=== PATIENT | male | born 1955 | race Hispanic/Latino ===

== ENCOUNTER 2016-07-04 16:00 | Inpatient (IN) | payer MEDICARE, OTHER ==
--- NOTE | 2016-07-04 17:05 | C.PDOC ---
History Of Present Illness 60M sent by pmd for progressive gen weakness, weight loss, poor appetite, sob and jeffries for 6 months, worse recently. low grade temp at home for last 10 days "99." Time Seen by Provider: 07/04/16 16:44 Chief Complaint (Nursing): Shortness Of Breath Past Medical History Vital Signs: Last Vital Signs Temp 98 F 07/06/16 16:00 Pulse 86 07/06/16 16:00 Resp 20 07/06/16 16:00 BP 156/85 H 07/06/16 16:00 Pulse Ox 99 07/06/16 16:00 - Medical History PMH: Anxiety, Bipolar Disorder, Bronchitis, Depression, HTN, Pulmonary Embolism , Schizophrenia (paranoid type) Denies: Diabetes, Hepatitis, HIV, Chronic Kidney Disease, Seizures, Sexually Transmitted Disease Surgical History: Tonsillectomy - [facility] GROUP PSYCHOTHERAPY (12/09/15) INDIVIDUAL PSYCHOTHERAPY, COGNITIVE-BEHAVIORAL (12/09/15) INSERTION OF ENDOTRACHEAL AIRWAY INTO TRACHEA, VIA OPENING (11/29/15) PSYCHIAT DRUG THERAP NEC (03/21/06) RESPIRATORY VENTILATION, 24-96 CONSECUTIVE HOURS (11/29/15) Family History: States: Other (nc) - Social History Hx Tobacco Use: No Hx Alcohol Use: No Hx Substance Use: No - Immunization History Hx Tetanus Toxoid Vaccination: No Hx Influenza Vaccination: Yes (2014) Hx Pneumococcal Vaccination: Yes Review Of Systems Except As Marked, All Systems Reviewed And Found Negative. Constitutional: Positive for: Fever, Weakness Eyes: Negative for: Vision Change Cardiovascular: Negative for: Chest Pain Respiratory: Positive for: Shortness of Breath, SOB with Excertion. Negative for: Cough, Wheezing Gastrointestinal: Negative for: Nausea, Vomiting, Abdominal Pain, Diarrhea Genitourinary: Negative for: Dysuria Neurological: Positive for: Seizures. Negative for: Weakness, Numbness, Altered Mental Status, Headache Physical Exam - Physical Exam Appears: No Acute Distress Skin: Warm, Dry Head: Atraumatic Eye(s): bilateral: PERRL, EOMI Oral Mucosa: Moist Tongue: No Swelling Lips: No Swelling Neck: Normal ROM Cardiovascular: Rhythm Regular Respiratory: No Decreased Breath Sounds, No Accessory Muscle Use, No Rales, No Rhonchi, No Wheezing Gastrointestinal/Abdominal: Soft, No Tenderness Extremity: No Swelling Pulses: Left Radial: Normal, Right Radial: Normal Neurological/Psych: Oriented x3, Normal Cranial Nerves, No Cerebellar Signs, Normal Motor, Normal Sensation, Other (no focal deficits) ED Course And Treatment - Laboratory Results Result Diagrams: 07/04/16 17:27 07/04/16 17:27 O2 Sat by Pulse Oximetry: 95 - CT Scan/US CTA chest Other Rad Studies (CT/US): Read By Radiologist, Radiology Report Reviewed CT/US Interpretation: EXAM: CT Angiography Chest With Intravenous Contrast. CLINICAL HISTORY: 60 years old, male; Signs and symptoms; Shortness of breath; Additional info: HX of dvt/pe,. worsening SOB. TECHNIQUE: Axial computed tomographic angiography images of the chest with intravenous contrast using. pulmonary embolism protocol. This CT exam was performed using one or more of the following dose. reduction techniques: automated exposure control, adjustment of the mA and/or kV according to. patient size, and/or use of iterative reconstruction technique. Coronal and sagittal reformatted images were created and reviewed. CONTRAST: 100 mL of VISIPAQUE 320 administered intravenously. EXAM DATE/TIME: 07/04/2016 5:07 PM. COMPARISON: NM - LUNG SCAN (VQ SCAN) 12/04/2015 1:54:50 PM. FINDINGS: Artifacts: Motion artifact degrades image quality. Heart, aorta and Pulmonary arteries: Heart size is normal. There is no pericardial effusion.There is. no aneurysm or dissection.There are vascular calcifications. Bolus timing limits evaluation of. pulmonary arteries. No filling defects in the main pulmonary arteries. Allowing for motion and bolus. timing, no large peripheral pulmonary emboli are identified. Lungs and Pleural space: Trachea and main bronchi are patent. The there is minimal scarring at. the lung apices. There is minimal scarring at the lung bases. There are no focal consolidations. There no pleural effusions. Mediastinum: Esophagus is unremarkable. There are no pathologically enlarged mediastinal or. hilar nodes. Thyroid: Thyroid is unremarkable. Bones /joints: There degenerative changes in the bony structures. There are bridging osteophytes. and syndesmophytes. Soft tissues: unremarkable. Upper abdomen: Gallbladder is distended. There are multiple small layering stones. IMPRESSION : Limited by bolus timing and patient motion, no central or large peripheral pulmonary. emboli, no aneurysm or dissection; no focal pneumonia or. Thank you for allowing us to participate in the care of your patient. Dictated and Authenticated by: Stacie Sam MD. 07/04/2016 8:04 PM Eastern Time ( [place] & [place]) Disposition - Disposition Disposition: HOSPITALIZED Disposition Time: 20:50 Condition: STABLE - Clinical Impression Clinical Impression: Dehydration, Weight loss
[2016-07-04] MEDS ORDERED: Sodium Chloride 0.9% 1,000 ML IV ONE (17:06)
[2016-07-04 17:43] LABS: AST/SGOT 15 U/L (17-59); BILIRUBIN,TOTAL 0.7 mg/dL (0.2-1.3); CARBON DIOXIDE 25 mmol/L (22-30); GFR AFRICAN-AMERICAN > 60
[2016-07-04 17:44] LABS: ALB/GLOB RATIO 1.6 (1.0-2.1); ALKALINE PHOSPHATASE 44 U/L (38-126); ALT/SGPT 23 U/L (21-72); BLOOD UREA NITROGEN 18 mg/dL (9-20); CALCIUM 9.4 mg/dl (8.6-10.4); GLUCOSE,RANDOM 123 mg/dL (75-110); TOTAL PROTEIN 6.9 g/dL (6.3-8.3)
[2016-07-04] MEDS ORDERED: Sodium Chloride 0.9% 1,000 ML ONE ×2 (17:45→22:25)
[2016-07-04 17:47] LABS: BASO % 0.6 % (0.0-2.0); EOS # 0.1 K/uL (0.0-0.7); EOS % 0.9 % (0.0-4.0); HEMATOCRIT 40.5 % (35.0-51.0); INR 2.1; LYMPH # 1.3 K/uL (1.0-4.3); LYMPH % 15.7 % (20.0-40.0); MEAN CELL VOLUME 87.5 fL (80.0-94.0); MEAN CORPUSCULAR HEMOGLOBIN 29.5 pg (27.0-31.0); MEAN CORPUSCULAR HGB CONC 33.7 g/dL (33.0-37.0); MEAN PLATELET VOLUME 8.2 fL (7.2-11.7); MONO # 0.6 K/uL (0.0-0.8); MONO % 7.7 % (0.0-10.0); RED CELL DISTRIBUTION WIDTH 15.1 % (11.5-14.5); WHITE BLOOD COUNT 8.3 K/uL (4.8-10.8)
[2016-07-04 18:04] LABS: CHLORIDE 96 mmol/L (98-107); POTASSIUM 3.9 mmol/L (3.6-5.2); SODIUM 137 mmol/L (132-148)
[2016-07-04 18:07] LABS: RBC URINE 1 /hpf (0-3); URINE BACTERIA RARE (<OCC); URINE BILIRUBIN NEGATIVE (NEGATIVE); URINE BLOOD NEGATIVE (NEGATIVE); URINE COLOR Yellow (YELLOW); URINE GLUCOSE (UA) NORMAL (Normal); URINE KETONE 1+ mg/dL (NEGATIVE); URINE LEUKOCYTE ESTERASE NEG Leu/uL (Negative); URINE PROTEIN NEGATIVE (NEGATIVE); URINE UROBILINOGEN NORMAL mg/dL (0.2-1.0); WBC URINE 3 /hpf (0-5)
[2016-07-04] MEDS ORDERED: Iodixanol 320 MG/ML 100 ML BOTTLE IV ONE (18:33)
--- NOTE | 2016-07-04 18:41 | RAD ---
HISTORY: weak COMPARISON: 12/04/2015 FINDINGS: LUNGS: The lungs are hyperinflated. There is no focal consolidation. PLEURA: No significant pleural effusion identified, no pneumothorax apparent. CARDIOVASCULAR: Normal. OSSEOUS STRUCTURES: No significant abnormalities. VISUALIZED UPPER ABDOMEN: Normal. OTHER FINDINGS: None. IMPRESSION: No active pulmonary disease. COPD.
--- NOTE | 2016-07-04 21:11 | CP.PCM.HP ---
History of Present Illness - History of Present Illness History of Present Illness: Chief complaint: failure to thrive and loss of wt History present illness: 60-year-old male with history of anxiety, depression, bipolar disease, peptic ulcer disease, diabetes recent diagnosed, history of seizure disorder recently admitted to the [facility]. increasing wt loss and very anxious poor appetitie no abd pain no nausea weakness very nervousness noted He is being followed up by psychiatrist, who is giving the medication for antianxiety. He is very concerned about his multiple medical issues including diabetes, blood clots, DVT, blood thinner. Is also concerned about taking multiple medications. According to the patient's he is very concerned about eating food. He is losing weight recently. Because of this. His anxiety is getting worse recently. He's not sleeping well. Shaking even at night sometimes. Unable to sleep well. Current medications was up dated with the patient today. Hospital medical records reviewed. Past medical history: Anxiety, peptic ulcer disease, diabetes Surgical history: History of lung collapse in the past as a child. Family history: Father had a history of prostate cancer, and also had a history of alcoholism. Mother is secondary to breast cancer and diabetes. Siblings, 2 brothers and 2 sisters. One sister secondary to Seroquel overdose. Social history: Denies any alcohol or smoking, denies any caffeine use. Exercise none. Current medications reviewed from the chart. Review of systems: He has no headache, he denies any glaucoma, cataract. No chest pain. Denies any palpitation, but the increasing nervousness, anxiety, and agitation noted. Patient is complaining of his stomach is very delicate, but the regular BM. He is a peptic ulcer disease. Urine is normal, BPH noted. Patient in the past is seen by urologist and had a biopsy in the past. Dry skin noted, numbness and tingling sensation noted, sleeping is not good. On examination: HEENT PERRLA, neck supple No thyromegaly was noted and no cervical adenopathy noted Chest bilateral good air entry, no wheezing or rales noted CVS regular heart sound, no murmur Abdomen soft and no organomegaly Extremities no pedal edema, no leg swelling, pedal pulses are good. 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 Patient is concerned about anxiety, and agitation noted at times. Patient hospital records reviewed Patient was intubated in the hospital secondary to episode of seizure episode, intubated and extubated in the past Patient also had a high probability VQ scan and it currently placed on anticoagulation in the past not CT chest not conclussive Hemoglobin A1c 7.4. Otherwise blood pressure is controlled well. Assessment/recommendation: 60-year-old male with history of recently diagnosed with diabetes, anxiety, peptic ulcer disease, episode of seizure disorder. Not clear at this time. Currently taking Keppra. Recently because of increasing anxiety, worseing wt loss failure to thrive will get the ct abd and pelvis calarie count nutritional consult psy consult Present on Admission - Present on Admission Any Indicators Present on Admission: No History of DVT/PE: No History of Uncontrolled Diabetes: No Urinary Catheter: No Decubitus Ulcer Present: No Past Patient History - Infectious Disease Hx of Infectious Diseases: None - Past Medical History & Family History Past Medical History?: Yes - Past Social History Smoking Status: Never Smoked - CARDIAC Hx Hypertension: Yes - PULMONARY Hx Bronchitis: Yes Hx Pulmonary Embolism: Yes - NEUROLOGICAL Hx Seizures: No - HEENT Hx HEENT Problems: No - RENAL Hx Chronic Kidney Disease: No - ENDOCRINE/METABOLIC Hx Endocrine Disorders: No - HEMATOLOGICAL/ONCOLOGICAL Hx Human Immunodeficiency Virus (HIV): No - INTEGUMENTARY Hx Dermatological Problems: No - MUSCULOSKELETAL/RHEUMATOLOGICAL Hx Musculoskeletal Disorders: No Hx Falls: No - GASTROINTESTINAL Hx Gastrointestinal Disorders: No - GENITOURINARY/GYNECOLOGICAL Hx Sexually Transmitted Disorders: No - PSYCHIATRIC Hx Anxiety: Yes Hx Bipolar Disorder: Yes Hx Depression: Yes Hx Schizophrenia: Yes (paranoid type) Hx Substance Use: No - SURGICAL HISTORY Hx Tonsillectomy: Yes - ANESTHESIA Hx Anesthesia: Yes Hx Anesthesia Reactions: No Hx Malignant Hyperthermia: No Meds Allergies/Adverse Reactions: Allergies Allergy/AdvReac Type Severity Reaction Status Date / Time quetiapine Allergy Severe SHORTNESS Verified 07/04/16 16:43 OF BREATH haloperidol [From Haldol] AdvReac SHORTNESS Verified 07/04/16 16:43 OF BREATH haloperidol lactate AdvReac SHORTNESS Verified 07/04/16 16:43 [From Haldol] OF BREATH lithium AdvReac Verified 07/04/16 16:43 Results - Vital Signs Recent Vital Signs: Last Vital Signs Temp 98.0 F 07/04/16 19:38 Pulse 104 H 07/04/16 19:38 Resp 16 07/04/16 19:38 BP 161/84 H 07/04/16 19:38 Pulse Ox 95 07/04/16 20:12 - Labs Result Diagrams: 07/07/16 08:55 07/07/16 08:55
[2016-07-04] MEDS: (Novolin R) Insulin Human Regular 100 units/ml vial SC SCH (22:03)
[2016-07-04] MEDS: Sodium Chloride 0.9% 1,000 ML IV SCH (22:29)
[2016-07-05 00:12] VITALS: RESP 20
[2016-07-05] MEDS: (Novolin R) Insulin Human Regular 100 units/ml vial SC SCH ×4 (07:40→22:00)
[2016-07-05] MEDS: Sodium Chloride 0.9% 1,000 ML IV SCH ×3 (07:41→17:54)
--- NOTE | 2016-07-05 08:32 | CT ---
PROCEDURE: CT Chest with contrast (Pulmonary Angiogram) HISTORY: hx of dvt/pe, worsening sob COMPARISON: None available. TECHNIQUE: Axial computed tomography images were obtained of the chest in the pulmonary arterial phase of enhancement. Coronal and sagittal reformatted images were created and reviewed. Intravenous contrast dose: 100 cc of Visipaque 350 Radiation dose: Total exam DLP = 411.89 mGy-cm. FINDINGS: PULMONARY ARTERIES: Suboptimal opacification of the peripheral pulmonary arteries. No evidence of central pulmonary embolus. AORTA: No acute findings. No thoracic aortic aneurysm. LUNGS: No evidence of acute pulmonary disease. PLEURAL SPACES: Unremarkable. No effusion or pneuomothorax. HEART: Unremarkable. No cardiomegaly. No significant pericardial effusion. LYMPH NODES: No lymphadenopathy. BONES, CHEST WALL: Unremarkable. No fracture or destructive lesion OTHER FINDINGS: Unremarkable. IMPRESSION: Suboptimal study. No evidence of central pulmonary embolus. No evidence of acute pulmonary disease. Preliminary report was submitted by virtual Radiology.
[2016-07-05] MEDS: Pantoprazole 40 mg EC Tab PO SCH (09:50)
--- NOTE | 2016-07-05 12:07 | CARD ---
APPROVED REPORT EKG Measurement Heart [id number] <Conclusion> Sinus tachycardia Left axis deviation Abnormal ECG
--- NOTE | 2016-07-05 15:51 | CON ---
DATE: 07/05/2016 CHIEF COMPLAINT AND REASON FOR CONSULTATION: The patient referred by Dr. Gusman for comanagement and evaluation. The patient has history of schizoaffective disorder, bipolar type, and has been comp laining of increasing weight loss, anxiety and not sleeping. The patient, as stated, has history of schizoaffective disorder and concerned about losing weight despite taking high doses of Zyprexa. HISTORY OF PRESENT ILLNESS: This is the case of a 60-year-old male who is well known to me, having been my patient for many years in my office. The patient has a history of schizoaffective dis order, bipolar type, with multiple admissions here at [facility], in [place] as well as in [facility] and history of ECT treatment in the past. The patient was seen in my office yesterday complaining of weight loss. The patient has lost more than 10 pounds since his last visit to me. The patient h as been seen monthly and has been losing his appetite. He said he is feeling very nervous and compla ining he cannot breathe. The patient also has history of a deviated septum and complaining that he m ight need surgery to help him sleep. He has been followed by Dr. Gusman for his medical problems as stated, history of diabetes, history of DVT. The patient currently taking Zyprexa 5 mg in the mor gisel as well as 20 at night. He was also given Ativan and tried Klonopin before. I did try him on R exulti, but the patient is unable to tolerate it. I put him on Remeron before. The patient became m ore anxious. The patient has not a very favorable response to medication. He had better response wi th ECT in the past when he was treated before by Dr. Avila at [facility] geropsych unit m any years ago, but the patient is reluctant to go for ECT other than Dr. Avila. The patient now is losing weight. He said he cannot sleep, he is very nervous, also having mood swings and having in creased somatic complaints. I did call his primary care, Dr. Gusman, who recommended patient to b e admitted medically to work up for his progressive weight loss and failure to thrive. From his base line weight, the patient has lost more than 15 pounds. Today when seen, patient states he did not sl eep last night, still very anxious and somatically preoccupied complaining that he cannot breathe, wh ich he relates to his deviated septum of his nose. PAST PSYCHIATRIC HISTORY: He has a long and extensive history of psychiatric illness. He has been a patient for many years, has been admitted multiple times in various hospitals, [facility], [facility] as well as in [facility]. History of ECT in the past. The patient has tried multipl e psych medications. He seems to respond better to Klonopin as well as Zyprexa. I tried him on Neur ontin, Lamictal, other SSRIs. The patient has very minimal response to medication. He seems to do b angélica just on Klonopin or Ativan and Zyprexa. PAST MEDICAL HISTORY: He had history of seizure, diabetes, history of peptic ulcer disease. He has hypertension, history of colitis, as stated, history of DVT. ALLERGIES: THE PATIENT IS ALLERGIC TO SEROQUEL, HALDOL AND LITHIUM. DRUG AND ALCOHOL HISTORY: Denies any. PSYCHOSOCIAL HISTORY: The patient is disabled secondary to his psych illness. He lives with his wif Sarai locke. They have been for many years. They have no children. PHYSICAL EXAMINATION: VITAL SIGNS: Temperature is 97.9, pulse rate is 89, blood pressure is 131/75, respirations 20, oxyge n saturation is 98%. LABORATORIES: Review, patient's WBC is 8.3, H and H is 13.7/40.5. Sodium is 137, potassium is 3.9, creatinine is 0.8. Liver function tests are within normal limits. TSH 0.78. UA is just +1 for keto miguel. LIST OF CURRENT MEDICATIONS: The patient is on Ambien 5 mg at bedtime, which he states is not helpin g him, Ativan 1 mg b.i.d., Colace, Enulose, Keppra 750 mg b.i.d. as well as Protonix, Xarelto, and Zy prexa 5 mg at bedtime. The patient is asking this doctor to readjust his meds so he can sleep. REVIEW OF SYSTEMS: GENERAL: The patient is alert, oriented x 3, seen in his room. He said he is still having problems breathing related to his deviated septum. The patient wants to see Dr. Hamilton, if he can do surgery o n his septum. SKIN: No pruritus. HEENT: Complaining of difficulty breathing in his nose. No headache, no dizziness. NECK: Supple. RESPIRATORY: Mild dyspnea. CARDIOVASCULAR: No chest pain. GASTROINTESTINAL: Appetite is fair, but patient states that he is still concerned about losing weigh t. No nausea, no vomiting. EXTREMITIES: Gait is unsteady. MUSCULOSKELETAL: Feels weak. NEUROLOGIC: Alert, oriented x 3. GENITOURINARY: No urinary problems. MENTAL STATUS EXAMINATION: A 60-year-old male who is 6 feet and weighs 145 pounds. The patient used to weigh close to 160 pounds before he started his weight loss. Seen in his room, in hospital gown, oriented x 3. Mood still anxious, somatic. Affect is reactive. Speech spontaneous. Thought proce ss coherent. Thought content: Preoccupied about his weight loss and his poor appetite. No paranoia . No suicidal or homicidal ideation. Attention and memory seems to be fair. Insight and judgment f air. Impulse control is fair. IMPRESSION: History of schizoaffective disorder, bipolar type, as well as failure to thrive, anorexi a, history of seizure, deep venous thrombosis. PLAN AND RECOMMENDATION: The patient seen, meds reviewed. Continue present management. On review o f his labs, his random blood sugar is 123. This is not bad. According to the patient, he has been w atching his diet. Psych basilio, we will change his psych medications. I will discontinue the Ambien p .r.n. I will discontinue the Ativan 1 mg b.i.d. and then also discontinue the dose of the Zyprexa. We will give him Klonopin 2 mg in the morning and change the dose of Zyprexa to 20 at bedtime. Hopef ully, patient will be able to sleep. The patient undergoing workup for his weight loss. The patient also states he wants to be seen if possible by Dr. Hamilton for his deviated septum. Will discuss with Dr. Gusman. Eh Pulido MD cc: [id number] TT: 07/05/2016 15:51:09 Confirmation # [id number] Dictation # [id number]
--- NOTE | 2016-07-05 20:49 | CP.PCM.PN ---
Subjective - Date & Time of Evaluation Date of Evaluation: 07/05/16 Time of Evaluation: 20:48 - Subjective Subjective: patient today is slightly feeling better, still anxious, and poorly eating. Somewhat weakness noted. No nausea noted currently, no vomiting at this time Vital signs reviewed Chest good air entry bilaterally regular heart sound nontender abdomen Currently on IV fluid. Patient is being monitored for calorie count also. Failure to thrive, anxiety attack. Hypertension. Tachycardia. History of pulmonary embolism on anticoagulation. We'll continue the current treatment. We'll discuss with the family tomorrow, he'll get a CAT scan of the abdomen and pelvis if needed Objective - Vital Signs/Intake and Output Vital Signs (last 24 hours): Temp Pulse Resp BP Pulse Ox 98.0 F 100 H 20 162/86 H 99 07/05/16 16:07 07/05/16 19:21 07/05/16 16:07 07/05/16 16:07 07/05/16 16:07 Intake and Output: 07/05/16 07/06/16 18:59 06:59 Intake Total 1160 Balance 1160 - Medications Medications: Current Medications Clonazepam (Klonopin) 2 mg PO HS [facility] Docusate Sodium (Colace) 100 mg PO BID [facility] Last Admin: 07/05/16 17:47 Dose: 100 mg Sodium Chloride (Sodium Chloride 0.9%) 1,000 mls @ 100 mls/hr IV .Q10H [facility] Last Admin: 07/05/16 17:54 Dose: 100 mls/hr Insulin Human Regular (Novolin R) 0 unit SC ACHS [facility] PRN Reason: Protocol Last Admin: 07/05/16 16:30 Dose: Not Given Lactulose (Enulose) 10 gm PO BID [facility] Last Admin: 07/05/16 17:46 Dose: 10 gm Levetiracetam (Keppra) 750 mg PO BID [facility] Last Admin: 07/05/16 17:53 Dose: 750 mg Metoprolol Tartrate (Lopressor) 50 mg PO Q12 [facility] Last Admin: 07/05/16 09:50 Dose: 50 mg Olanzapine (Zyprexa) 20 mg PO HS [facility] Pantoprazole Sodium (Protonix Ec Tab) 40 mg PO DAILY [facility] Last Admin: 07/05/16 09:50 Dose: 40 mg Rivaroxaban (Xarelto) 15 mg PO BIDBS [facility] Last Admin: 07/05/16 16:30 Dose: 15 mg - Labs Labs: PT 24.2 SECONDS (9.7-12.2) H 07/04/16 17:27 INR 2.1 07/04/16 17:27
[2016-07-06] MEDS: Sodium Chloride 0.9% 1,000 ML IV SCH ×2 (03:22→15:38)
[2016-07-06] MEDS: (Novolin R) Insulin Human Regular 100 units/ml vial SC SCH ×3 (08:10→18:27)
[2016-07-06] MEDS: Pantoprazole 40 mg EC Tab PO SCH (09:40)
--- NOTE | 2016-07-06 17:48 | CP.PCM.PN ---
Subjective - Date & Time of Evaluation Date of Evaluation: 07/06/16 Time of Evaluation: 17:45 - Subjective Subjective: pt is still having agitation and fear and afraid that he had cancer not eating well no chest pain h/o high risk of pulmonary embolism on xarelto no fever increated urination BPH Temp Pulse Resp BP Pulse Ox 98 F 86 20 156/85 H 99 07/06/16 16:00 07/06/16 16:00 07/06/16 16:00 07/06/16 16:00 07/06/16 16:00 chest good air entry regular hs abd soft no edema 07/04/16 17:27 07/04/16 17:27 a/P pt with depression bipolar BPH PE seizures left arm weakness muscle wasting underling lowermotor neuron palsey will get neuro consult wt loss will get ct abd pelvis Objective - Vital Signs/Intake and Output Vital Signs (last 24 hours): Temp Pulse Resp BP Pulse Ox 98 F 86 20 156/85 H 99 07/06/16 16:00 07/06/16 16:00 07/06/16 16:00 07/06/16 16:00 07/06/16 16:00 Intake and Output: 07/06/16 07/06/16 06:59 18:59 Intake Total 1100 Balance 1100 - Medications Medications: Current Medications Clonazepam (Klonopin) 2 mg PO HS [facility] Last Admin: 07/05/16 21:07 Dose: 2 mg Docusate Sodium (Colace) 100 mg PO BID [facility] Last Admin: 07/06/16 09:40 Dose: 100 mg Insulin Human Regular (Novolin R) 0 unit SC ACHS [facility] PRN Reason: Protocol Last Admin: 07/06/16 11:34 Dose: Not Given Lactulose (Enulose) 10 gm PO BID [facility] Last Admin: 07/06/16 09:46 Dose: Not Given Levetiracetam (Keppra) 750 mg PO BID [facility] Last Admin: 07/06/16 09:40 Dose: 750 mg Metoprolol Tartrate (Lopressor) 50 mg PO Q12 [facility] Last Admin: 07/06/16 09:41 Dose: 50 mg Olanzapine (Zyprexa) 20 mg PO HS [facility] Last Admin: 07/05/16 22:00 Dose: 20 mg Pantoprazole Sodium (Protonix Ec Tab) 40 mg PO DAILY [facility] Last Admin: 07/06/16 09:40 Dose: 40 mg Rivaroxaban (Xarelto) 15 mg PO BIDBS [facility] Last Admin: 07/06/16 09:40 Dose: 15 mg Zolpidem Tartrate (Ambien) 5 mg PO HS PRN PRN Reason: Insomnia - Labs Labs: PT 24.2 SECONDS (9.7-12.2) H 07/04/16 17:27 INR 2.1 07/04/16 17:27
[2016-07-06] MEDS ORDERED: Iohexol 240 (50 ml) PO ONE (19:15)
--- NOTE | 2016-07-06 19:41 | PN ---
DATE: 07/06/2016 SUBJECTIVE: The patient seen with his . The patient still nervous, but he is eating a little be tter. He still continues to complain he cannot sleep. I put him on Zyprexa 20 mg at bedtime and Klo nopin 2 mg at bedtime, but the patient is asking for Ambien p.r.n. He used to take Ambien 10 at nigh t. I will put him back on Ambien 5 mg at bedtime p.r.n. The patient is undergoing GI workup. Case discussed with Dr. Gusman. The patient will have CAT s can of the abdomen and pelvis, especially with his history of progressive weight loss. He is still also concerned about his breathing problems symptoms because of his deviated septum, but the patient is taking blood thinners. He is on Xarelto and the patient may have to wait until he is medically free from blood thinners before he can have his elective nose surgery. VITAL SIGNS: Temperature is 98, pulse is 86, blood pressure 156/85, respirations 20, oxygen sat is 9 9%. On review of his labs, his blood sugars is less than 150. The last one is 131. REVIEW OF SYSTEMS: The patient is alert, oriented x 3. Seen in his room, still anxious and somatic. Seeing his . SKIN: No diaphoresis. HENT: Complaining of difficulty breathing secondary to deviated nasal septum. No headache. NECK: Supple. RESPIRATORY: No dyspnea. CARDIOVASCULAR: No chest pain. GASTROINTESTINAL: His appetite still poor but he is trying to eat. The patient is very picky with h is food. The patient stated he will eat food brought by his from outside. EXTREMITIES: Gait is unsteady. MUSCULOSKELETAL: Feels weak. NEUROLOGIC: Alert, oriented x 3. GENITOURINARY: Not complaining of urinary problems. MENTAL STATUS EXAMINATION: Elderly male who looks stated age; 6 feet, and weighs 145 pounds. Mood i s still anxious and somatic. Affect is reactive. Speech: Spontaneous. Thought Process: Coherent. Thought Content: Still has very high free-floating related level, and preoccupied about his insomn ia. The patient has chronic insomnia. No paranoia. No suicidal or homicidal ideation. Attention a nd memory seem to be fair. Insight and Judgment: Fair. Impulse control is fair. IMPRESSION: History of schizoaffective disorder bipolar type, as well as history of weight loss, ano rexia, diabetes, history of deep vein thrombosis in the past. PLAN AND RECOMMENDATIONS: The patient seen. Meds reviewed. Continue present management. We will a dd Ambien 5 mg at bedtime p.r.n. for insomnia. Continue Zyprexa 20 mg at bedtime, and Klonopin 2 mg at bedtime. Eh Pulido MD cc: [id number] TT: 07/06/2016 19:40:15 Confirmation # [id number] Dictation # [id number]
--- NOTE | 2016-07-06 21:15 | CT ---
EXAM: CT Abdomen and Pelvis Without Intravenous Contrast. CLINICAL HISTORY: 60 years old, male; Signs and symptoms; Other: Weight loss; Additional info: Wt loss TECHNIQUE: Axial computed tomography images of the abdomen and pelvis without intravenous contrast. This CT exam was performed using one or more of the following dose reduction techniques: automated exposure control, adjustment of the mA and/or kV according to patient size, and/or use of iterative reconstruction technique. Coronal and sagittal reformatted images were created and reviewed. EXAM DATE/TIME: 07/06/2016 5:44 PM COMPARISON: CT - ABD PELVIS W/O PO OR IV CONT 11/29/2015 2:09:53 AM FINDINGS: Lower thorax: Heart size is normal. There are small calcified nodes in the posterior mediastinum. Lung bases are hyperinflated. There is minimal scarring. There is minimal pleural thickening. ABDOMEN: Liver: unremarkable Gallbladder and bile ducts: Gallbladder is distended. There are multiple small stones. Common bile duct is unremarkable. Pancreas: Pancreas is mildly atrophic with fatty replacement. Spleen: unremarkable Adrenals: There is a small left adrenal nodule. Right adrenal is unremarkable. Kidneys and ureters: Kidneys and ureters are unremarkable. Stomach and bowel: Stomach is distended with contrast and air. Rotation is normal. There is no obstruction. Terminal ileum is unremarkable. Appendix is not visualized. There is no pericecal inflammation. There is moderate stool in the right colon. Colon is incompletely distended which limits evaluation. There is mild distal transverse and splenic flexure wall thickening. There is descending and sigmoid colon wall thickening. Appendix: See above. PELVIS: Bladder: unremarkable Reproductive: Prostate is enlarged. Seminal vesicles have the expected configuration. ABDOMEN and PELVIS: Intraperitoneal space: There is no free air or free fluid. Bones/joints: There are degenerative changes in the osseus structures. Soft tissues: There is a fat-containing umbilical hernia. Vasculature: There are calcified phleboliths. There are vascular calcifications. Lymph nodes: There is shotty para-aortic adenopathy. IMPRESSION: Gallstones; colitis; enlarged prostate Additional findings as described above.
[2016-07-07] MEDS: (Novolin R) Insulin Human Regular 100 units/ml vial SC SCH ×4 (07:48→22:52)
[2016-07-07 09:10] LABS: BASO % 0.8 % (0.0-2.0); EOS # 0.1 K/uL (0.0-0.7); EOS % 2.4 % (0.0-4.0); LYMPH # 1.9 K/uL (1.0-4.3); LYMPH % 32.7 % (20.0-40.0); MEAN CELL VOLUME 87.8 fL (80.0-94.0); MEAN CORPUSCULAR HEMOGLOBIN 29.9 pg (27.0-31.0); MEAN PLATELET VOLUME 8.2 fL (7.2-11.7); MONO # 0.6 K/uL (0.0-0.8); NRBC % 0.1 % (0.0-2.0); RED CELL DISTRIBUTION WIDTH 14.9 % (11.5-14.5); WHITE BLOOD COUNT 5.7 K/uL (4.8-10.8)
--- NOTE | 2016-07-07 09:16 | CON ---
DATE: 07/07/2016 REASON FOR CONSULTATION: Left hand numbness and weakness. CHIEF COMPLAINT: The patient was admitted with generalized weakness. During the hospitalization, patient found to have weakness of his left hand. From neurological point of view, I was called in to evaluate him for further management. HISTORY OF PRESENTING ILLNESS: The patient is a 60-year-old, thinly built, male presenting with about 6 months history of left arm pain, weakness. The symptoms have been worse. The symptoms are all persistent in nature. No history of trauma, no history of fall, no history of involuntary movement. He denies any new complaints on his left lower extremity. PAST MEDICAL HISTORY: Diabetes mellitus, bipolar disorder. PERSONAL HISTORY: Denies alcohol use. REVIEW OF SYSTEMS: As per H and P. PHYSICAL EXAMINATION: VITAL SIGNS: Blood pressure 100/68, temperature afebrile. NECK: Supple. No carotid bruit. HEART SOUNDS: Regular. CHEST: Fair air entry. EXTREMITIES: No edema in legs. NEUROLOGIC EXAMINATION: MENTAL STATUS: Easily arousable on calling his first name. The patient is awake, alert, oriented to person, place, and time. His speech is clear. Naming , repetition, fluency, comprehension all within normal. CRANIAL NERVES: Visual field intact. Pupils reactive to light. Extraocular movements normal. No nystagmus. No facial sensory deficit, no facial asymmetry. Hearing is normal. Tongue is midline. Good gag. MOTOR: On outstretched hand with eyes closed, no drift noted. incurving of left fourth and fifth digits noted. Significant distal muscle group atrophy, particularly the ulnar nerve distribution is affected. Muscle strength is weakness again noted over ulnar nerve distributed muscle groups. DEEP TENDON REFLEXES: Biceps, 2+ on either side. Brachioradialis, right side 2 +, left side absent. Triceps, 2+ on either side. Both knees are absent, both ankles are absent. Plantars are downgoing. SENSORY: Decreased pinprick over the C6 and C7 dermatome. COORDINATION: [id number] test intact on the right side. Slight dysmetria noted on the left side due to his weakness. GAIT: Deferred at this time. CONCLUSION: Upon reviewing his history and neurological examination, the patient been presenting with possible left C6-C7 radiculopathy associating with possible entrapment neuropathy at left elbow. The patient also suffering from bilateral dissymmetric sensorimotor neuropathy. RECOMMENDATIONS: 1. MRI of the cervical spine is recommended to establish the clinical diagnosis. 2. The patient can be benefitted with electrodiagnostic studies (nerve conduction study/electromyography), which can further establish his clinical diagnosis for further management. 3. In the meantime, I would like to get physical therapy and occupational therapy to get on board to improve his weakness. 4. Blood workup to rule out any vasculitis or any metabolic problem worsening his clinical condition. Ifeanyi Venegas MD cc: [id number] TT: 07/07/2016 09:15:41 Confirmation # [id number] Dictation # [id number] MTDD
[2016-07-07 09:17] LABS: CHLORIDE 97 mmol/L (98-107); SODIUM 139 mmol/L (132-148)
[2016-07-07 09:18] LABS: POTASSIUM 3.8 mmol/L (3.6-5.2)
[2016-07-07 09:20] LABS: ALB/GLOB RATIO 1.5 (1.0-2.1); ALKALINE PHOSPHATASE 42 U/L (38-126); ALT/SGPT 21 U/L (21-72); AST/SGOT 16 U/L (17-59); BILIRUBIN,TOTAL 0.6 mg/dL (0.2-1.3); BLOOD UREA NITROGEN 11 mg/dL (9-20); CALCIUM 9.4 mg/dl (8.6-10.4); CARBON DIOXIDE 28 mmol/L (22-30); GFR AFRICAN-AMERICAN > 60; GLUCOSE,RANDOM 104 mg/dL (75-110); TOTAL PROTEIN 6.2 g/dL (6.3-8.3)
[2016-07-07 09:46] LABS: CARCINOEMBRYONIC ANTIGEN 1.9 ng/mL (0-3.0)
[2016-07-07] MEDS: Pantoprazole 40 mg EC Tab PO SCH (10:32)
--- NOTE | 2016-07-07 13:41 | PN ---
DATE: 07/07/2016 SUBJECTIVE: The patient is seen. The patient is still anxious and somatic, but according to the sta ff, he is eating much better. The patient went for MRI today. He was seen by Dr. Venegas earlier. Ps maximus basilio, the patient is taking Zyprexa 20 mg at bedtime and was given Ambien 5 mg at bedtime p.r.n. which he did not use and also taking clonazepam 2 mg at bedtime. LABORATORIES: On review, patient's hemoglobin A1c is 5.6, which is well controlled. Liver function tests are within normal limits. Random blood sugar was 104. His CA-125 antigen is less than 5.5, ca rcinoembryonic antigen is 1.9, alpha fetoprotein 1. The patient's thyroid is also within normal limi ts. VITAL SIGNS: Temperature is 97.7, pulse rate is 80, blood pressure is 129/77, respirations 20, oxyge n sat is 97%. REVIEW OF SYSTEMS: GENERAL: The patient is alert, verbal, still complaining of trouble breathing related to his deviate d septum, but other than that, he is clinically improving slowly. SKIN: No diaphoresis. HEENT: Complaining of difficulty breathing. No headache. NECK: Supple. RESPIRATORY: No dyspnea. CARDIOVASCULAR: No chest pain. GASTROINTESTINAL: Still, patient has poor appetite, but patient is eating about 75% of his meals and he is very focused about eating the right food to control his diabetes, although I told him his hemo globin A1c is 5.6 indicating that the patient's blood sugar control in the last 3 months is very good . EXTREMITIES: The patient is ambulatory. MUSCULOSKELETAL: Feels weak. NEUROLOGIC: Alert and oriented x 3. MENTAL STATUS EXAMINATION: Elderly male who looks stated age, oriented x 3, seen in his room, eating . Speech spontaneous. Affect is reactive. Mood is still anxious, somatic. Thought process coheren t. Thought content: No psychosis. No suicidal or homicidal ideation. Attention and memory seem to be fair. Insight and judgment fair. Impulse control is fair. IMPRESSION: Schizoaffective disorder, bipolar type, history of deep venous thrombosis, anorexia, farzad lure to thrive. PLAN AND RECOMMENDATIONS: The patient seen, meds reviewed. The patient undergoing workup for his an orexia. Continue present psych meds as ordered. The patient also has been seen by Dr. Venegas as lian ent has possible left C6-C7 radiculopathy. Continue treatment plan as outlined. Eh Pulido MD cc: [id number] TT: 07/07/2016 13:40:39 Confirmation # [id number] Dictation # [id number]
--- NOTE | 2016-07-07 15:20 | MRI ---
PROCEDURE: MR CERVICAL SPINE WITHOUT CONTRAST HISTORY: LEFT C6-C7 RADIUCLOPATHY COMPARISON: None available. TECHNIQUE: Multiecho multiplanar sequences were performed through the cervical spine without the use of intravenous contrast. FINDINGS: There is 4 mm degenerative retrolisthesis of C5 on C6. There is normal cervical lordosis. Vertebral height is normal. There is abnormal T1 hypointense and STIR hyperintense signal in the C6 vertebral body and anterior C5 vertebral body, otherwise bone marrow signal is within normal limits. There is no acute fracture. The craniocervical junction is normal. The atlantoaxial joint is normal. The cervical cord is normal in contour, caliber and has normal intrinsic signal. The visualized intracranial structures are normal. The paraspinous soft tissues are normal. There is no prevertebral soft tissue thickening. C2-C3: No large disc herniation, spinal canal or neural foraminal stenosis. C3-C4: Broad-based disc osteophyte complex and mild bilateral facet arthropathy result in mild right neural foraminal stenosis. No spinal canal stenosis. . C4-C5: Disc osteophyte complex and moderate bilateral facet arthropathy result in moderate right neural foraminal stenosis. No spinal canal stenosis. C5-C6: Broad-based disc osteophyte complex and moderate bilateral facet arthropathy result in moderate neural foraminal stenosis. No spinal canal stenosis. C6-C7: Broad-based disc protrusion with superimposed left foraminal disc protrusion in conjunction with mild bilateral facet arthropathy result in severe left neural foraminal stenosis and probable impingement of the exiting left C7 nerve root. Also noted is moderate right neural foraminal stenosis and mild spinal canal stenosis. C7-T1: No disc herniation, spinal canal stenosis or neural foraminal narrowing. OTHER FINDINGS: None. IMPRESSION: Mild multilevel degenerative disc disease, worse at C6-7 with a broad-based and left foraminal disc protrusion and impingement of the exiting left C7 nerve root. Also noted is moderate right neural foraminal stenosis and mild spinal canal stenosis. Additional comments as described above.
--- NOTE | 2016-07-07 16:31 | CP.PCM.CON ---
History of Present Illness - History of Present Illness History of Present Illness: Asked to see pt today for colitis. is present. Reports 9 months of 60 lb wt loss. + constipation. CT shows colitis. PMH: HTN, new DM, PE, DVT, SZ, psych disorder., PUD in past. Reports mild left mid abdominal pain. Review of Systems - EENT Eyes: absent: Blurred Vision - Cardiovascular Cardiovascular: Dyspnea. absent: Chest Pain - Respiratory Respiratory: Dyspnea. absent: Cough, Hemoptysis, Wheezing - Gastrointestinal Gastrointestinal: Abdominal Pain, Constipation. absent: Diarrhea, Hematemesis, Hematochezia, Melena, Vomiting - Genitourinary Genitourinary: absent: Hematuria - Musculoskeletal Musculoskeletal: absent: Arthralgias - Integumentary Integumentary: absent: Jaundice - Neurological Neurological: Convulsions Past Patient History - Infectious Disease Hx of Infectious Diseases: None - Past Medical History & Family History Past Medical History?: Yes - Past Social History Smoking Status: Never Smoked - CARDIAC Hx Hypertension: Yes - PULMONARY Hx Bronchitis: Yes Hx Pulmonary Embolism: Yes - NEUROLOGICAL Hx Seizures: No - HEENT Hx HEENT Problems: No - RENAL Hx Chronic Kidney Disease: No - ENDOCRINE/METABOLIC Hx Diabetes Mellitus Type 2: Yes - HEMATOLOGICAL/ONCOLOGICAL Hx Human Immunodeficiency Virus (HIV): No - INTEGUMENTARY Hx Dermatological Problems: No - MUSCULOSKELETAL/RHEUMATOLOGICAL Hx Musculoskeletal Disorders: No Hx Falls: No - GASTROINTESTINAL Hx Gastrointestinal Disorders: No - GENITOURINARY/GYNECOLOGICAL Hx Sexually Transmitted Disorders: No - PSYCHIATRIC Hx Anxiety: Yes Hx Bipolar Disorder: Yes Hx Depression: Yes Hx Schizophrenia: Yes (paranoid type) Hx Substance Use: No - SURGICAL HISTORY Hx Tonsillectomy: Yes - ANESTHESIA Hx Anesthesia: Yes Hx Anesthesia Reactions: No Hx Malignant Hyperthermia: No Meds Allergies/Adverse Reactions: Allergies Allergy/AdvReac Type Severity Reaction Status Date / Time quetiapine Allergy Severe SHORTNESS Verified 07/04/16 16:43 OF BREATH haloperidol [From Haldol] AdvReac SHORTNESS Verified 07/04/16 16:43 OF BREATH haloperidol lactate AdvReac SHORTNESS Verified 07/04/16 16:43 [From Haldol] OF BREATH lithium AdvReac Verified 07/04/16 16:43 - Medications Medications: Current Medications Clonazepam (Klonopin) 2 mg PO HS [facility] Last Admin: 07/06/16 21:06 Dose: 2 mg Docusate Sodium (Colace) 100 mg PO BID [facility] Last Admin: 07/07/16 10:33 Dose: 100 mg Insulin Human Regular (Novolin R) 0 unit SC ACHS [facility] PRN Reason: Protocol Last Admin: 07/07/16 11:33 Dose: Not Given Lactulose (Enulose) 10 gm PO BID [facility] Last Admin: 07/07/16 10:33 Dose: 10 gm Levetiracetam (Keppra) 750 mg PO BID [facility] Last Admin: 07/07/16 10:33 Dose: 750 mg Metoprolol Tartrate (Lopressor) 50 mg PO Q12 [facility] Last Admin: 07/07/16 10:35 Dose: 50 mg Metronidazole (Flagyl) 250 mg PO Q8H [facility] Last Admin: 07/07/16 16:07 Dose: 250 mg Olanzapine (Zyprexa) 20 mg PO HS [facility] Last Admin: 07/06/16 21:07 Dose: 20 mg Pantoprazole Sodium (Protonix Ec Tab) 40 mg PO DAILY [facility] Last Admin: 07/07/16 10:32 Dose: 40 mg Rivaroxaban (Xarelto) 15 mg PO BIDBS [facility] Last Admin: 07/07/16 08:17 Dose: 15 mg Saccharomyces Boulardii (Florastor) 250 mg PO TID [facility] Zolpidem Tartrate (Ambien) 5 mg PO HS PRN PRN Reason: Insomnia Physical Exam - Constitutional Appears: Non-toxic - Neck Exam Neck exam: Negative for: Lymphadenopathy - Respiratory Exam Respiratory Exam: Clear to Auscultation Bilateral - Cardiovascular Exam Cardiovascular Exam: RRR - GI/Abdominal Exam GI & Abdominal Exam: Normal Bowel Sounds, Soft. absent: Distended, Guarding, Mass, Rebound, Rigid, Tenderness - Extremities Exam Extremities exam: Negative for: calf tenderness - Neurological Exam Neurological exam: Alert, Oriented x3 - Psychiatric Exam Psychiatric exam: Anxious Results - Vital Signs Recent Vital Signs: Last Vital Signs Temp 97.7 F 07/07/16 08:00 Pulse 88 07/07/16 14:29 Resp 20 07/07/16 08:00 BP 132/79 07/07/16 14:29 Pulse Ox 99 07/07/16 14:29 - Labs Result Diagrams: 07/07/16 08:55 07/07/16 08:55 Labs: Laboratory Results - last 24 hr 07/06/16 07/06/16 07/07/16 16:08 20:59 07:04 WBC RBC Hgb Hct MCV MCH MCHC RDW Plt Count MPV Neut % (Auto) Lymph % (Auto) [place] % (Auto) Eos % (Auto) Baso % (Auto) Neut # Lymph # [place] # Eos # Baso # ESR Sodium Potassium Chloride Carbon Dioxide Anion Gap BUN Creatinine Est GFR ( Amer) Est GFR (Non-Af Amer) POC Glucose (mg/dL) 131 H 108 97 Random Glucose Hemoglobin A1c Calcium Total Bilirubin AST ALT Alkaline Phosphatase C-React Prot High Sens Total Protein Albumin Globulin Albumin/Globulin Ratio Alpha Fetoprotein Carcinoembryonic Ag CA 125 Antigen 07/07/16 07/07/16 07/07/16 07:32 08:55 11:26 WBC 5.7 RBC 4.32 L Hgb 12.9 Hct 38.0 MCV 87.8 MCH 29.9 MCHC 34.0 RDW 14.9 H Plt Count 167 MPV 8.2 Neut % (Auto) 54.1 Lymph % (Auto) 32.7 [place] % (Auto) 10.0 Eos % (Auto) 2.4 Baso % (Auto) 0.8 Neut # 3.1 Lymph # 1.9 [place] # 0.6 Eos # 0.1 Baso # 0.0 ESR 13 Sodium 139 Potassium 3.8 Chloride 97 L Carbon Dioxide 28 Anion Gap 18 BUN 11 Creatinine 0.8 Est GFR ( Amer) > 60 Est GFR (Non-Af Amer) > 60 POC Glucose (mg/dL) 172 H Random Glucose 104 Hemoglobin A1c 5.6 Calcium 9.4 Total Bilirubin 0.6 AST 16 L ALT 21 Alkaline Phosphatase 42 C-React Prot High Sens 1.48 Total Protein 6.2 L Albumin 3.7 Globulin 2.5 Albumin/Globulin Ratio 1.5 Alpha Fetoprotein 1.0 Carcinoembryonic Ag 1.9 CA 125 Antigen < 5.5 Assessment & Plan (1) Dehydration Status: Acute (2) Weight loss Assessment and Plan: Unclear etiology. Consider psych. R/O malignancy. Status: Acute (3) Deep vein thrombosis (DVT) of right lower extremity Status: Acute Priority: High (4) Hx pulmonary embolism Assessment and Plan: On anticoag. Status: Acute Priority: High (5) Anxiety Status: Acute (6) Bipolar disorder Status: Acute (7) Colitis Assessment and Plan: On CT. I doubt IBD. Due to wt loss, constip, and CT colitis, he should have colonosocpy. If medicall y ok. Will need to hold blood thinners if colonosocpy is planned,. Status: Acute (8) Constipation Status: Acute (9) DMII (diabetes mellitus, type 2) Status: Acute (10) Respiratory distress Status: Acute (11) Seizure Status: Acute
[2016-07-07] MEDS: Saccharomyces Boulardi 250 mg Cap PO SCH (19:30)
--- NOTE | 2016-07-07 23:39 | CP.PCM.PN ---
Subjective - Date & Time of Evaluation Date of Evaluation: 07/07/16 Time of Evaluation: 23:39 - Subjective Subjective: The patient has still feeling somewhat depressed, and anxious, and also week. Not able to eat, poor appetite is still persistently noted. Spoke to the GA, possible colonoscopy on Sunday. We'll change anticoagulation to Lovenox. Objective - Vital Signs/Intake and Output Vital Signs (last 24 hours): Temp Pulse Resp BP Pulse Ox 98.5 F 82 20 142/81 99 07/07/16 16:00 07/07/16 18:48 07/07/16 16:00 07/07/16 16:00 07/07/16 16:00 Intake and Output: 07/07/16 07/08/16 18:59 06:59 Intake Total 700 Balance 700 - Medications Medications: Current Medications Clonazepam (Klonopin) 2 mg PO HS [facility] Last Admin: 07/07/16 21:28 Dose: 2 mg Docusate Sodium (Colace) 100 mg PO BID [facility] Last Admin: 07/07/16 19:30 Dose: 100 mg Enoxaparin Sodium (Lovenox) 60 mg SC Q12 [facility] Insulin Human Regular (Novolin R) 0 unit SC ACHS [facility] PRN Reason: Protocol Last Admin: 07/07/16 22:52 Dose: Not Given Lactulose (Enulose) 10 gm PO BID [facility] Last Admin: 07/07/16 19:31 Dose: 10 gm Levetiracetam (Keppra) 750 mg PO BID [facility] Last Admin: 07/07/16 19:31 Dose: 750 mg Metoprolol Tartrate (Lopressor) 50 mg PO Q12 [facility] Last Admin: 07/07/16 21:28 Dose: 50 mg Metronidazole (Flagyl) 250 mg PO Q8H [facility] Last Admin: 07/07/16 22:44 Dose: 250 mg Olanzapine (Zyprexa) 20 mg PO HS [facility] Last Admin: 07/07/16 21:28 Dose: 20 mg Pantoprazole Sodium (Protonix Ec Tab) 40 mg PO DAILY [facility] Last Admin: 07/07/16 10:32 Dose: 40 mg Saccharomyces Boulardii (Florastor) 250 mg PO TID [facility] Last Admin: 07/07/16 19:30 Dose: 250 mg Zolpidem Tartrate (Ambien) 5 mg PO HS PRN PRN Reason: Insomnia - Labs Labs: 07/07/16 08:55 07/07/16 08:55 PT 24.2 SECONDS (9.7-12.2) H 07/04/16 17:27 INR 2.1 07/04/16 17:27
[2016-07-08] MEDS: (Novolin R) Insulin Human Regular 100 units/ml vial SC SCH ×4 (08:55→21:15)
[2016-07-08] MEDS: Pantoprazole 40 mg EC Tab PO SCH (09:45)
[2016-07-08] MEDS: Enoxaparin 60 mg Syringe SC SCH ×2 (09:46→21:13)
[2016-07-08] MEDS: Saccharomyces Boulardi 250 mg Cap PO SCH ×3 (09:47→17:59)
--- NOTE | 2016-07-08 13:22 | CP.PCM.PN ---
Subjective - Date & Time of Evaluation Date of Evaluation: 07/08/16 Time of Evaluation: 13:19 - Subjective Subjective: Patient complains of poor appetite. He has not had a bowel movement so far today. He denies having nausea or vomiting. Objective - Vital Signs/Intake and Output Vital Signs (last 24 hours): Temp Pulse Resp BP Pulse Ox 97.4 F L 85 20 120/75 97 07/08/16 08:00 07/08/16 08:00 07/08/16 08:00 07/08/16 08:00 07/08/16 08:00 Intake and Output: 07/08/16 07/08/16 06:59 18:59 Intake Total 240 Output Total 300 Balance -60 - Medications Medications: Current Medications Clonazepam (Klonopin) 2 mg PO HS [facility] Last Admin: 07/07/16 21:28 Dose: 2 mg Docusate Sodium (Colace) 100 mg PO BID [facility] Last Admin: 07/08/16 09:45 Dose: 100 mg Enoxaparin Sodium (Lovenox) 60 mg SC Q12 [facility] Last Admin: 07/08/16 09:46 Dose: 60 mg Insulin Human Regular (Novolin R) 0 unit SC ACHS [facility] PRN Reason: Protocol Last Admin: 07/08/16 13:13 Dose: Not Given Lactulose (Enulose) 10 gm PO BID [facility] Last Admin: 07/08/16 09:45 Dose: 10 gm Levetiracetam (Keppra) 750 mg PO BID [facility] Last Admin: 07/08/16 09:45 Dose: 750 mg Metoprolol Tartrate (Lopressor) 50 mg PO Q12 [facility] Last Admin: 07/08/16 09:45 Dose: 50 mg Metronidazole (Flagyl) 250 mg PO Q8H [facility] Last Admin: 07/08/16 06:49 Dose: 250 mg Olanzapine (Zyprexa) 20 mg PO HS [facility] Last Admin: 07/07/16 21:28 Dose: 20 mg Pantoprazole Sodium (Protonix Ec Tab) 40 mg PO DAILY [facility] Last Admin: 07/08/16 09:45 Dose: 40 mg Saccharomyces Boulardii (Florastor) 250 mg PO TID [facility] Last Admin: 07/08/16 09:47 Dose: 250 mg Zolpidem Tartrate (Ambien) 5 mg PO HS PRN PRN Reason: Insomnia - Labs Labs: 07/07/16 08:55 07/07/16 08:55 PT 24.2 SECONDS (9.7-12.2) H 07/04/16 17:27 INR 2.1 07/04/16 17:27 - Constitutional Appears: No Acute Distress - Head Exam Head Exam: ATRAUMATIC, NORMOCEPHALIC - Eye Exam Eye Exam: EOMI, PERRL - Neck Exam Neck Exam: absent: Lymphadenopathy, Thyromegaly - Respiratory Exam Respiratory Exam: NORMAL BREATHING PATTERN. absent: Rales, Rhonchi, Wheezes - Cardiovascular Exam Cardiovascular Exam: +S1, +S2. absent: Gallop, Rubs, Murmur - GI/Abdominal Exam GI & Abdominal Exam: Soft, Normal Bowel Sounds. absent: Tenderness, Mass, Organomegaly - Rectal Exam Rectal Exam: Deferred - Extremities Exam Extremities Exam: absent: Calf Tenderness, Pedal Edema Assessment and Plan (1) Colitis Assessment & Plan: Patient with CT findings suspicious for colitis. Plan is for colonosocoy on Sunday. Status: Acute
--- NOTE | 2016-07-08 16:46 | PN ---
DATE: 07/08/2016 SUBJECTIVE: The patient is seen. The patient is still anxious and afraid to eat. The patient was s een with Dr. Gusman. The patient is going for colonoscopy on Sunday, as he may have colitis, but the patient seems to be very focused on his diabetes and instructed his diabetes is well controlled, reflected by his hemoglobin A1c which is 5.6. The patient is advised to eat more and be less obsesse d about his diabetes. The patient also may benefit from an appetite stimulant, but we will try to pu t it once his colonoscopy is over. We will try to see if we can give him Periactin at night, which m ight also help him sleep, as he still has subjective insomnia. VITAL SIGNS: Temperature is 97.4, pulse rate is 85, blood pressure 120/75, respirations 20, oxygen s ats 97%. REVIEW OF SYSTEMS: GENERAL: The patient is alert and oriented x 3, seen with his at bedside. Seen also with Dr. Hui gao. Still very anxious and somatic. He said he is afraid to eat. SKIN: No diaphoresis. HEENT: Complaining of breathing problems secondary to deviated septum. No headache. NECK: Supple. RESPIRATORY: No dyspnea. CARDIOVASCULAR: No chest pain. GASTROINTESTINAL: Appetite still poor for as the patient has anticipatory anxiety when he tries to e at. Not complaining of abdominal pain, no nausea, no vomiting. EXTREMITIES: Gait is unsteady. MUSCULOSKELETAL: Feels weak. NEUROLOGIC: Alert, oriented x 3. GENITOURINARY: Not complaining of dysuria. MENTAL STATUS EXAMINATION: Elderly male, looks frail, oriented x 3. Mood is anxious, somatic. Affe ct is reactive. Speech spontaneous. Thought process coherent. Thought content: The patient is afr aid to eat, but he is willing to go for colonoscopy. The patient made aware of all the lab results s o far, which are within normal limits. The patient seems to be afraid to eat. Attention and memory seems to be fair. Insight and judgment fair. Impulse control is fair. IMPRESSION: History of schizoaffective disorder, bipolar type, failure to thrive, anorexia, history of diabetes. PLAN AND RECOMMENDATIONS: The patient seen, meds reviewed. We will continue his present psych meds of Ambien 5 mg at bedtime p.r.n., which he has not been using. The patient is also on clonazepam 2 m g at bedtime and olanzapine 20 mg at bedtime. Note, the patient has been given metronidazole which c an cause appetite loss as a side effect. The patient will monitor his p.o. intake. As stated, if th e patient's colonoscopy is negative, I will put him on Periactin, low dose, at night to help him eat and open his appetite, as well as to help him sleep. Eh Pulido MD cc: [id number] TT: 07/08/2016 16:45:41 Confirmation # [id number] Dictation # [id number] ln
--- NOTE | 2016-07-08 23:55 | CP.PCM.PN ---
Subjective - Date & Time of Evaluation Date of Evaluation: 07/08/16 Time of Evaluation: 23:47 - Subjective Subjective: pt still having the poor appetitie poorly eating vitals stable Temp Pulse Resp BP Pulse Ox 97.5 F L 75 20 108/70 97 07/08/16 23:44 07/08/16 23:44 07/08/16 23:44 07/08/16 23:44 07/08/16 23:44 chest good air entry regular hs abd soft pt with psyche condition severe wt loss failure to thrive colitis for colonoscopy on Sunday off anticoagulation on lovenox Objective - Vital Signs/Intake and Output Vital Signs (last 24 hours): Temp Pulse Resp BP Pulse Ox 97.5 F L 75 20 108/70 97 07/08/16 23:44 07/08/16 23:44 07/08/16 23:44 07/08/16 23:44 07/08/16 23:44 Intake and Output: 07/08/16 07/09/16 18:59 06:59 Intake Total 300 Balance 300 - Medications Medications: Current Medications Clonazepam (Klonopin) 2 mg PO HS [facility] Last Admin: 07/08/16 21:13 Dose: 2 mg Docusate Sodium (Colace) 100 mg PO BID [facility] Last Admin: 07/08/16 17:58 Dose: 100 mg Enoxaparin Sodium (Lovenox) 60 mg SC Q12 [facility] Last Admin: 07/08/16 21:13 Dose: 60 mg Insulin Human Regular (Novolin R) 0 unit SC [facility] PRN Reason: Protocol Last Admin: 07/08/16 21:15 Dose: Not Given Lactulose (Enulose) 10 gm PO BID [facility] Last Admin: 07/08/16 17:58 Dose: 10 gm Levetiracetam (Keppra) 750 mg PO BID [facility] Last Admin: 07/08/16 17:59 Dose: 750 mg Metoprolol Tartrate (Lopressor) 50 mg PO Q12 [facility] Last Admin: 07/08/16 21:13 Dose: 50 mg Metronidazole (Flagyl) 250 mg PO Q8H [facility] Last Admin: 07/08/16 21:18 Dose: 250 mg Olanzapine (Zyprexa) 20 mg PO HS [facility] Last Admin: 07/08/16 21:13 Dose: 20 mg Pantoprazole Sodium (Protonix Ec Tab) 40 mg PO DAILY [facility] Last Admin: 07/08/16 09:45 Dose: 40 mg Saccharomyces Boulardii (Florastor) 250 mg PO TID [facility] Last Admin: 07/08/16 17:59 Dose: 250 mg Zolpidem Tartrate (Ambien) 5 mg PO HS PRN PRN Reason: Insomnia - Labs Labs: 07/07/16 08:55 07/07/16 08:55 PT 24.2 SECONDS (9.7-12.2) H 07/04/16 17:27 INR 2.1 07/04/16 17:27
[2016-07-09] MEDS: (Novolin R) Insulin Human Regular 100 units/ml vial SC SCH ×4 (09:13→23:16)
[2016-07-09] MEDS: Saccharomyces Boulardi 250 mg Cap PO SCH ×3 (09:55→17:48)
[2016-07-09] MEDS: Enoxaparin 60 mg Syringe SC SCH ×2 (09:58→21:53)
--- NOTE | 2016-07-09 13:34 | PN ---
DATE: 07/09/2016 NEUROLOGICAL PROBLEM: Left C7 radiculopathy. PHYSICAL EXAMINATION: VITAL SIGNS: Blood pressure 130/78, mean arterial pressure 94, respiratory rate 16, temperature 97.8 . NEUROLOGIC: The patient is more awake, alert, oriented to person, place, and time. No sign of hallu cination, however, seems to be depressed. The patient is still complaining of numbness of his left little finger and ring finger. Examination showed distal muscle group atrophy over ulnar nerve distribution, particularly C6 and C7 roots. Examination is unchanged to compare with my previous examination. MRI of the cervical spine reviewed by me, consistent with C6-C7 with broad based disk narrowing with nerve root impingement at C7 root on his left side. RECOMMENDATIONS: When medically stable, following discharge, patient should have electrodiagnostic s tudies including nerve conduction studies and electromyography, which can be done as outpatient. In the meantime, patient could continue physical therapy. Ifeanyi Venegas MD cc: [id number] TT: 07/09/2016 13:34:14 Confirmation # [id number] Dictation # [id number] en
--- NOTE | 2016-07-09 13:54 | PN ---
DATE: 07/09/2016 SUBJECTIVE: The patient is seen. The patient is afraid to eat. He claims he has no appetite. The patient still has trouble sleeping and states that he will be going for colonoscopy in the morning. The patient seems afraid to eat for fear that his diabetes will get worse, but has been reassured his hemoglobin A1c is 5.6 and his diabetes is well controlled. The patient has so much anxiety affectin g his ability to eat and has been losing weight. VITAL SIGNS: Temperature is 97.8, pulse rate is 86, blood pressure is 130/78, respirations 20, oxyge n saturation is 97%. His last sugar is 91, which is very good. HE was trying to eat his lunch today, but claims he has no appetite. REVIEW OF SYSTEMS: SKIN: No pruritus. HEENT: Still has breathing problems related to his deviated septum in his nose. No headache. NECK: Supple. RESPIRATORY: No dyspnea. CARDIOVASCULAR: No chest pain. GASTROINTESTINAL: No abdominal pain, but has very poor appetite. EXTREMITIES: Gait is unsteady. MUSCULOSKELETAL: Feels weak. NEUROLOGIC: Alert, oriented x 3. GENITOURINARY: Not complaining of urinary problems. He has been cooperative while in the hospital. The patient also is taking his psych medications as p rescribed. MENTAL STATUS EXAMINATION: A fair looking male who looks stated age, oriented x 3, still very anxiou s and somatic. Speech spontaneous. Affect is reactive. Thought process coherent. Thought content: The patient has agreed to go for colonoscopy, but still very concerned about his diabetes and afrai d to eat. He said he has no appetite. No suicidal or homicidal ideation, no paranoia. Attention an d memory seems to be fair. Insight and judgment fair. Impulse control is fair. IMPRESSION: Schizoaffective disorder, bipolar type, as well as history of diabetes, failure to thriv e, anorexia, colitis. PLAN AND RECOMMENDATIONS: The patient seen, meds reviewed. Continue present psych meds. The patien t will be going for colonoscopy in the morning. The patient also may benefit from appetite stimulant after the colonoscopy results. I told him I will put him on low dose Periactin, which hopefully jasmina l help him with his appetite as well as to help him sleep. The patient continues to complain he is n ot sleeping despite taking large amounts of psychiatric medication. The patient is on Klonopin 2 mg at bedtime as well as Zyprexa 20 mg at bedtime and Ambien p.r.n., but patient states he is still not sleeping. I will try to titrate his meds once he is more medically stable. Eh Pulido MD cc: [id number] TT: 07/09/2016 13:53:57 Confirmation # [id number] Dictation # [id number] en
[2016-07-09] MEDS: Pantoprazole 40 mg EC Tab PO SCH (14:06)
[2016-07-09] MEDS ORDERED: Bisacodyl 5mg EC Tab PO ONE ×2 (16:45→17:00)
[2016-07-09] MEDS ORDERED: Peg-Electrolyte Oral Soln 4L (Golytely) PO ONE (18:00)
[2016-07-10] MEDS ORDERED: Peg-Electrolyte Oral Soln 4L (Golytely) PO ONE (06:00)
--- NOTE | 2016-07-10 08:07 | CP.PCM.PN ---
Subjective - Date & Time of Evaluation Date of Evaluation: 07/09/16 Time of Evaluation: 08:07 - Subjective Subjective: Patient's overall condition is stable. Vital signs stable. Still feeling fearful, and anxious. Possible colonoscopy tomorrow, will hold the morning dose of anticoagulation. Will follow the patient Objective - Vital Signs/Intake and Output Vital Signs (last 24 hours): Temp Pulse Resp BP Pulse Ox 97.4 F L 84 20 110/72 97 07/10/16 00:07 07/10/16 00:07 07/10/16 00:07 07/10/16 00:07 07/10/16 00:07 Intake and Output: 07/10/16 07/10/16 06:59 18:59 Intake Total 4200 Balance 4200 - Medications Medications: Current Medications Clonazepam (Klonopin) 2 mg PO HS [facility] Last Admin: 07/09/16 21:52 Dose: 2 mg Docusate Sodium (Colace) 100 mg PO BID [facility] Last Admin: 07/09/16 17:48 Dose: 100 mg Insulin Human Regular (Novolin R) 0 unit SC ACHS [facility] PRN Reason: Protocol Last Admin: 07/09/16 23:16 Dose: Not Given Lactulose (Enulose) 10 gm PO BID [facility] Last Admin: 07/09/16 17:48 Dose: 10 gm Levetiracetam (Keppra) 750 mg PO BID [facility] Last Admin: 07/09/16 17:55 Dose: 750 mg Metoprolol Tartrate (Lopressor) 50 mg PO Q12 [facility] Last Admin: 07/09/16 21:52 Dose: 50 mg Metronidazole (Flagyl) 250 mg PO Q8H [facility] Last Admin: 07/10/16 07:54 Dose: 250 mg Olanzapine (Zyprexa) 20 mg PO HS [facility] Last Admin: 07/09/16 21:52 Dose: 20 mg Pantoprazole Sodium (Protonix Ec Tab) 40 mg PO DAILY [facility] Last Admin: 07/09/16 14:06 Dose: 40 mg Saccharomyces Boulardii (Florastor) 250 mg PO TID [facility] Last Admin: 07/09/16 17:48 Dose: 250 mg Zolpidem Tartrate (Ambien) 5 mg PO HS PRN PRN Reason: Insomnia - Labs Labs: 07/07/16 08:55 07/07/16 08:55 PT 24.2 SECONDS (9.7-12.2) H 07/04/16 17:27 INR 2.1 07/04/16 17:27
[2016-07-10] MEDS: (Novolin R) Insulin Human Regular 100 units/ml vial SC SCH ×4 (08:38→21:13)
[2016-07-10] MEDS: Saccharomyces Boulardi 250 mg Cap PO SCH ×3 (10:57→17:24)
[2016-07-10] MEDS: Pantoprazole 40 mg EC Tab PO SCH (11:02)
--- NOTE | 2016-07-10 14:35 | PN ---
DATE: 07/10/2016 SUBJECTIVE: The patient is seen. The patient is still very anxious and somatic. He is anxious harish g for colonoscopy today later this afternoon. The patient still has poor appetite and he is afraid t o eat. VITAL SIGNS: Temperature is 97.2, pulse rate 86, blood pressure 133/78, respirations 20, oxygen sat is 98%. REVIEW OF SYSTEMS: GENERAL: Alert, verbal, but very anxious and somatic. SKIN: No diaphoresis. HEENT: Complaining of off and difficulty breathing secondary to his nasal problems. No headache. NECK: Supple. RESPIRATORY: No dyspnea. CARDIOVASCULAR: No chest pain. GASTROINTESTINAL: The patient is feeling hungry. The patient is n.p.o. as he will be going for colo noscopy. EXTREMITIES: The patient's gait is unsteady. MUSCULOSKELETAL: Feels weak. NEUROLOGIC: Alert, oriented x 3. GENITOURINARY: Not complaining of urinary problems. MENTAL STATUS EXAMINATION: A frail-looking elderly male who looks stated age, oriented x 3. Anxious , somatic. Speech spontaneous. Affect is reactive. Thought process coherent. Thought content: Th e patient is anxious to have his colonoscopy done so he can eat. No paranoia. No suicidal or homici mine ideation. Attention and memory seem to be fair. Insight and judgment fair. Impulse control is fair. IMPRESSION: Schizoaffective disorder, bipolar type, weight loss, failure to thrive, diabetes. PLAN AND RECOMMENDATIONS: The patient seen, meds reviewed. The patient is for colonoscopy. Continu e present psych meds as ordered. We will try to add Periactin once the patient's colonoscopy result is obtained. Eh Pulido MD cc: [id number] TT: 07/10/2016 14:34:14 Confirmation # [id number] Dictation # [id number] en
[2016-07-10] MEDS ORDERED: Propofol 10 mg/ml Inj (20 ML) ONE (14:52)
[2016-07-10] MEDS ORDERED: Lactated Ringer's 500 ML IV ONE ×2 (14:52)
--- NOTE | 2016-07-11 08:14 | CP.PCM.PN ---
Subjective - Date & Time of Evaluation Date of Evaluation: 07/11/16 Time of Evaluation: 08:05 - Subjective Subjective: F/u wt loss Denies RB, melena, abdom pain, fever, chills, DIAS, cough, hemoptysis. Reports eating well. Objective - Vital Signs/Intake and Output Vital Signs (last 24 hours): Temp Pulse Resp BP Pulse Ox 97.6 F 85 20 125/78 100 07/11/16 08:09 07/11/16 08:09 07/11/16 08:09 07/11/16 08:09 07/11/16 08:09 Intake and Output: 07/11/16 07/11/16 06:59 18:59 Intake Total 200 Balance 200 - Medications Medications: Current Medications Clonazepam (Klonopin) 2 mg PO HS [facility] Last Admin: 07/10/16 22:27 Dose: 2 mg Docusate Sodium (Colace) 100 mg PO BID [facility] Last Admin: 07/10/16 17:24 Dose: 100 mg Insulin Human Regular (Novolin R) 0 unit SC ACHS [facility] PRN Reason: Protocol Last Admin: 07/10/16 21:13 Dose: Not Given Lactulose (Enulose) 10 gm PO BID [facility] Last Admin: 07/10/16 22:19 Dose: Not Given Levetiracetam (Keppra) 750 mg PO BID [facility] Last Admin: 07/10/16 17:24 Dose: 750 mg Metoprolol Tartrate (Lopressor) 50 mg PO Q12 [facility] Last Admin: 07/10/16 21:13 Dose: 50 mg Metronidazole (Flagyl) 250 mg PO Q8H [facility] Last Admin: 07/11/16 07:20 Dose: 250 mg Olanzapine (Zyprexa) 20 mg PO HS [facility] Last Admin: 07/10/16 21:13 Dose: 20 mg Pantoprazole Sodium (Protonix Ec Tab) 40 mg PO DAILY [facility] Last Admin: 07/10/16 11:02 Dose: Not Given Saccharomyces Boulardii (Florastor) 250 mg PO TID [facility] Last Admin: 07/10/16 17:24 Dose: 250 mg Zolpidem Tartrate (Ambien) 5 mg PO HS PRN PRN Reason: Insomnia - Labs Labs: 07/07/16 08:55 07/07/16 08:55 PT 24.2 SECONDS (9.7-12.2) H 07/04/16 17:27 INR 2.1 07/04/16 17:27 - Constitutional Appears: Well - Respiratory Exam Respiratory Exam: Clear to Ausculation Bilateral - Cardiovascular Exam Cardiovascular Exam: RRR - GI/Abdominal Exam GI & Abdominal Exam: Soft, Normal Bowel Sounds. absent: Distended, Tenderness - Extremities Exam Extremities Exam: absent: Calf Tenderness - Neurological Exam Neurological Exam: Alert, Awake Assessment and Plan (1) Dehydration Assessment & Plan: Better Status: Acute (2) Weight loss Assessment & Plan: colonoscopy - no tumors. No IBD. Unclear cause for wt loss. Check weights Status: Acute (3) Deep vein thrombosis (DVT) of right lower extremity Status: Acute (4) Hx pulmonary embolism Status: Acute (5) Anxiety Status: Acute (6) Bipolar disorder Status: Acute (7) Colitis Status: Acute (8) Constipation Status: Acute (9) DMII (diabetes mellitus, type 2) Status: Acute (10) Respiratory distress Assessment & Plan: better Status: Acute (11) Seizure Status: Acute (12) Colon polyps Status: Acute
[2016-07-11] MEDS: (Novolin R) Insulin Human Regular 100 units/ml vial SC SCH ×5 (08:29→23:20)
[2016-07-11] MEDS: Saccharomyces Boulardi 250 mg Cap PO SCH ×3 (10:14→21:19)
[2016-07-11] MEDS: Pantoprazole 40 mg EC Tab PO SCH (10:15)
--- NOTE | 2016-07-11 11:29 | PN ---
DATE: 07/11/2016 SUBJECTIVE: The patient is seen. The patient had colonoscopy done and showed some polyps, internal hemorrhoids, however, the patient is still afraid to eat. The patient is worried about his diabetes and claims that he has no appetite. VITAL SIGNS: Temperature is 97.6, pulse is 85, blood pressure 125/78, respirations 20, oxygen sat is 100%. REVIEW OF SYSTEMS: The patient feels weak, but alert, verbal. Seen in his room. Still afraid to eat. The patient is a nxious about going home. SKIN: No pruritus. HENT: No headache, no dizziness. NECK: Supple. RESPIRATORY: No dyspnea. CARDIOVASCULAR: No chest pain. GASTROINTESTINAL: Continues to be preoccupied about his diabetes, and the patient is fearful to eat. He reports poor appetite. EXTREMITIES: Gait unsteady. MUSCULOSKELETAL: Feels weak. NEUROLOGIC: Alert, oriented x 3. GENITOURINARY: Not complaint of urinary problems. MENTAL STATUS EXAMINATION: A frail looking elderly male who looks stated age. Mood is anxious, soma tic. Affect is reactive. Speech: Spontaneous. Thought Process: The patient is preoccupied about his diabetes and afraid to eat. I did offer him if I would change his medication at this time to giv e him low dose Periactin, but the patient is afraid to take at this time. The patient is currently o n Zyprexa 20, Ambien 5 mg at bedtime, and Klonopin 2 mg at bedtime. The patient exhibits no suicidal ideation or psychosis. Attention and memory seems to be fair. Insight and Judgment: Fair. Impuls e control is fair. IMPRESSION: Schizoaffective disorder, bipolar type, as well as anorexia, history of diabetes, deep v ein thrombosis. History of diabetes as well as history of deep vein thrombosis, and pulmonary embolism. PLAN AND RECOMMENDATIONS: The patient seen, meds reviewed. Continue present psych meds. Continue t reatment plan as outlined. Psych-basilio, he is stable for discharge once medically cleared. Eh Pulido MD cc: [id number] TT: 07/11/2016 11:28:29 Confirmation # [id number] Dictation # [id number] valarie
--- NOTE | 2016-07-11 13:25 | CP.PCM.PCO ---
Physician Communication Note - Physician Communication Note Physician Communication Note: Due to wt loss, consider upper GI problem. ANd consider EGD for sunday
--- NOTE | 2016-07-11 20:54 | CP.PCM.PN ---
Subjective - Date & Time of Evaluation Date of Evaluation: 07/10/16 Time of Evaluation: 20:53 - Subjective Subjective: Patient is currently having colonoscopy. History agitated, sometimes he is feeling extremely failure, and fearful. He is concerned that he may have a cancer. He is very apprehensive most of the time. He is not eating well. Still continues to lose weight gain Denies any other major active symptoms, no pain, denies any diarrhea Vital signs stable. Discussed with the psychiatrist. Currently on multiple medications. Continue the current treatment and will follow the patient Objective - Vital Signs/Intake and Output Vital Signs (last 24 hours): Temp Pulse Resp BP Pulse Ox 98.4 F 82 20 120/75 97 07/11/16 16:00 07/11/16 16:00 07/11/16 16:00 07/11/16 16:00 07/11/16 16:00 - Medications Medications: Current Medications Clonazepam (Klonopin) 2 mg PO HS [facility] Last Admin: 07/10/16 22:27 Dose: 2 mg Docusate Sodium (Colace) 100 mg PO BID [facility] Last Admin: 07/11/16 17:54 Dose: 100 mg Insulin Human Regular (Novolin R) 0 unit SC ACHS [facility] PRN Reason: Protocol Last Admin: 07/11/16 17:56 Dose: Not Given Lactulose (Enulose) 10 gm PO BID [facility] Last Admin: 07/11/16 17:54 Dose: 10 gm Levetiracetam (Keppra) 750 mg PO BID [facility] Last Admin: 07/11/16 17:54 Dose: 750 mg Metoprolol Tartrate (Lopressor) 50 mg PO Q12 [facility] Last Admin: 07/11/16 10:15 Dose: 50 mg Metronidazole (Flagyl) 250 mg PO Q8H [facility] Last Admin: 07/11/16 15:15 Dose: 250 mg Olanzapine (Zyprexa) 20 mg PO HS [facility] Last Admin: 07/10/16 21:13 Dose: 20 mg Pantoprazole Sodium (Protonix Ec Tab) 40 mg PO DAILY [facility] Last Admin: 07/11/16 10:15 Dose: 40 mg Saccharomyces Boulardii (Florastor) 250 mg PO TID [facility] Last Admin: 07/11/16 17:55 Dose: 250 mg Zolpidem Tartrate (Ambien) 5 mg PO HS PRN PRN Reason: Insomnia - Labs Labs: 07/07/16 08:55 07/07/16 08:55 PT 24.2 SECONDS (9.7-12.2) H 07/04/16 17:27 INR 2.1 07/04/16 17:27
--- NOTE | 2016-07-11 20:56 | CP.PCM.PN ---
Subjective - Date & Time of Evaluation Date of Evaluation: 07/11/16 Time of Evaluation: 20:54 - Subjective Subjective: Patient today is feeling somewhat fearful about the endoscopy. He will be scheduled to have a colonoscopy tomorrow. He denies any nausea vomiting no abdominal pain, appetite is still poor. Blood sugar somewhat on the stable side but the patient is concerned that it is high, and he is very particular about getting the insulin right away Denies any chest pain or shortness of breath and no other major active symptoms Temp Pulse Resp BP Pulse Ox 98.4 F 82 20 120/75 97 07/11/16 16:00 07/11/16 16:00 07/11/16 16:00 07/11/16 16:00 07/11/16 16:00 07/07/16 08:55 07/07/16 08:55 Patient is currently having psychotic symptoms. Significant weight loss. Unclear. Most likely apprehensive about the diabetes. Endoscopy tomorrow. Currently off Lovenox, anticoagulation is off. After the endoscopy will resume it. We'll follow the patient Objective - Vital Signs/Intake and Output Vital Signs (last 24 hours): Temp Pulse Resp BP Pulse Ox 98.4 F 82 20 120/75 97 07/11/16 16:00 07/11/16 16:00 07/11/16 16:00 07/11/16 16:00 07/11/16 16:00 - Medications Medications: Current Medications Clonazepam (Klonopin) 2 mg PO HS [facility] Last Admin: 07/10/16 22:27 Dose: 2 mg Docusate Sodium (Colace) 100 mg PO BID [facility] Last Admin: 07/11/16 17:54 Dose: 100 mg Insulin Human Regular (Novolin R) 0 unit SC [facility] PRN Reason: Protocol Last Admin: 07/11/16 17:56 Dose: Not Given Lactulose (Enulose) 10 gm PO BID [facility] Last Admin: 07/11/16 17:54 Dose: 10 gm Levetiracetam (Keppra) 750 mg PO BID [facility] Last Admin: 07/11/16 17:54 Dose: 750 mg Metoprolol Tartrate (Lopressor) 50 mg PO Q12 [facility] Last Admin: 07/11/16 10:15 Dose: 50 mg Metronidazole (Flagyl) 250 mg PO Q8H [facility] Last Admin: 07/11/16 15:15 Dose: 250 mg Olanzapine (Zyprexa) 20 mg PO HS [facility] Last Admin: 07/10/16 21:13 Dose: 20 mg Pantoprazole Sodium (Protonix Ec Tab) 40 mg PO DAILY [facility] Last Admin: 07/11/16 10:15 Dose: 40 mg Saccharomyces Boulardii (Florastor) 250 mg PO TID [facility] Last Admin: 07/11/16 17:55 Dose: 250 mg Zolpidem Tartrate (Ambien) 5 mg PO HS PRN PRN Reason: Insomnia - Labs Labs: 07/07/16 08:55 07/07/16 08:55 PT 24.2 SECONDS (9.7-12.2) H 07/04/16 17:27 INR 2.1 07/04/16 17:27
[2016-07-12] MEDS: (Novolin R) Insulin Human Regular 100 units/ml vial SC SCH ×4 (08:11→21:06)
[2016-07-12] MEDS ORDERED: Lactated Ringer's 500 ML IV ONE ×2 (11:11)
[2016-07-12] MEDS ORDERED: Propofol 10 mg/ml Inj (20 ML) ONE (11:16)
[2016-07-12] MEDS ORDERED: Lidocaine Hydrochloride 5 ML INJ ONE (11:16)
[2016-07-12] MEDS: Pantoprazole 40 mg EC Tab PO SCH (11:17)
[2016-07-12] MEDS: Saccharomyces Boulardi 250 mg Cap PO SCH ×3 (11:17→17:38)
--- NOTE | 2016-07-12 13:22 | PN ---
DATE: 07/12/2016 SUBJECTIVE: The patient is seen. The patient went for EGD earlier, but today when seen states that he has problem swallowing and patient still afraid to eat. The patient had a colonoscopy done. The patient is still obsessed about eating and states that he has poor appetite despite taking a lot of p sych meds. The patient also complaining of weakness. VITAL SIGNS: Temperature is 97.3, pulse is 79, blood pressure 136/81, respirations 20, oxygen satura tion is 96%. I did discuss with him changing his psych meds but patient is reluctant at this time. I will suggest if patient can have low dose Periactin to stimulate his appetite, but patient is afraid because he h as paradoxical reactions to certain medications. REVIEW OF SYSTEMS: GENERAL: The patient is still alert, but feeling weak. Has problems swallowing and complaining that he has no appetite. The patient is concerned about his diabetes and reluctant to eat. SKIN: No pruritus. HEENT: No headache, no dizziness. NECK: Supple, patient complaining of problem swallowing. RESPIRATORY: No dyspnea. CARDIOVASCULAR: No chest pain. GASTROINTESTINAL: Appetite is still poor. No nausea, no vomiting. The patient went for EGD earlier . The patient also noted today to be eating gingerly. MUSCULOSKELETAL: Feels weak. NEUROLOGIC: Alert and oriented x 3. GENITOURINARY: No dysuria. The patient was seen today. He is reluctant to go for inpatient psych unit, stating he wants to go h ome. MENTAL STATUS EXAMINATION: A frail elderly male who looks stated age, oriented x 3. Very anxious an d somatic. The patient is afraid to eat despite being reassured that patient's diabetes is well cont rolled. Speech spontaneous. Affect is reactive. Mood is depressed, somatic. Thought process coher ent. Thought content: No overt psychosis. No suicidal or homicidal ideation. The patient is preoc cupied about his swallowing and afraid to eat, stating he has swallowing problems. Attention and mem ory seem to be fair. Insight and judgment limited. Impulse control is fair at this time. IMPRESSION: History of schizoaffective disorder, bipolar type, failure to thrive, anorexia, history of diabetes. PLAN AND RECOMMENDATIONS: The patient seen, meds reviewed. Continue present management. The patien t awaiting medical clearance. The patient can go home. I will try to convince him if he can take lo w dose Periactin so patient will eat but patient is very reluctant to take new medication at this elizabeth e. The patient had favorable response to ECT in the past, but patient is refusing as the patient had memory loss for several months after he had ECT. However, his mood improved. Eh Pulido MD cc: [id number] TT: 07/12/2016 13:21:31 Confirmation # [id number] Dictation # [id number]
--- NOTE | 2016-07-12 22:53 | CP.PCM.PN ---
Subjective - Date & Time of Evaluation Date of Evaluation: 07/12/16 Time of Evaluation: 22:52 - Subjective Subjective: Patient is currently doing okay, complaining of weakness, tiredness. Still having is in fatigability, not eating well. Denies any chest pain or shortness of breath Today patient underwent upper endoscopy, showing evidence of possible Wiley's esophagus. Labs reviewed in Vital signs stable. Continue the current treatment. For possible discharge planning the morning Objective - Vital Signs/Intake and Output Vital Signs (last 24 hours): Temp Pulse Resp BP Pulse Ox 98.2 F 95 H 20 137/77 98 07/12/16 16:00 07/12/16 16:00 07/12/16 16:00 07/12/16 16:00 07/12/16 16:00 Intake and Output: 07/12/16 07/13/16 18:59 06:59 Intake Total 200 Balance 200 - Medications Medications: Current Medications Clonazepam (Klonopin) 2 mg PO HS [facility] Last Admin: 07/12/16 21:03 Dose: 2 mg Docusate Sodium (Colace) 100 mg PO BID [facility] Last Admin: 07/12/16 17:38 Dose: 100 mg Insulin Human Regular (Novolin R) 0 unit SC ACHS [facility] PRN Reason: Protocol Last Admin: 07/12/16 21:06 Dose: Not Given Lactulose (Enulose) 10 gm PO BID [facility] Last Admin: 07/12/16 17:39 Dose: 10 gm Levetiracetam (Keppra) 750 mg PO BID [facility] Last Admin: 07/12/16 17:38 Dose: 750 mg Metoprolol Tartrate (Lopressor) 50 mg PO Q12 [facility] Last Admin: 07/12/16 21:04 Dose: 50 mg Olanzapine (Zyprexa) 20 mg PO HS [facility] Last Admin: 07/12/16 21:03 Dose: 20 mg Pantoprazole Sodium (Protonix Ec Tab) 40 mg PO DAILY [facility] Last Admin: 07/12/16 11:17 Dose: Not Given Rivaroxaban (Xarelto) 15 mg PO BID [facility] Saccharomyces Boulardii (Florastor) 250 mg PO TID [facility] Last Admin: 07/12/16 17:38 Dose: 250 mg Zolpidem Tartrate (Ambien) 5 mg PO HS PRN PRN Reason: Insomnia - Labs Labs: 07/07/16 08:55 07/07/16 08:55 PT 24.2 SECONDS (9.7-12.2) H 07/04/16 17:27 INR 2.1 07/04/16 17:27
[2016-07-13] MEDS: (Novolin R) Insulin Human Regular 100 units/ml vial SC SCH ×2 (07:52→12:30)
--- NOTE | 2016-07-13 09:11 | CP.PCM.PN ---
Subjective - Date & Time of Evaluation Date of Evaluation: 07/13/16 Time of Evaluation: 09:08 - Subjective Subjective: F/U wt loss. Reports weakness Denies fever, chills SZ, Cp, SOB, DIAS, cough, abdom pain, diarrhea, RB, melena, hemoptysis Reports constipation. Objective - Vital Signs/Intake and Output Vital Signs (last 24 hours): Temp Pulse Resp BP Pulse Ox 97.5 F L 85 20 122/80 99 07/13/16 08:00 07/13/16 08:00 07/13/16 08:00 07/13/16 08:00 07/13/16 08:00 - Medications Medications: Current Medications Clonazepam (Klonopin) 2 mg PO HS [facility] Last Admin: 07/12/16 21:03 Dose: 2 mg Docusate Sodium (Colace) 100 mg PO BID [facility] Last Admin: 07/12/16 17:38 Dose: 100 mg Insulin Human Regular (Novolin R) 0 unit SC ACHS [facility] PRN Reason: Protocol Last Admin: 07/13/16 07:52 Dose: Not Given Lactulose (Enulose) 10 gm PO BID [facility] Last Admin: 07/12/16 17:39 Dose: 10 gm Levetiracetam (Keppra) 750 mg PO BID [facility] Last Admin: 07/12/16 17:38 Dose: 750 mg Metoprolol Tartrate (Lopressor) 50 mg PO Q12 [facility] Last Admin: 07/12/16 21:04 Dose: 50 mg Olanzapine (Zyprexa) 20 mg PO HS [facility] Last Admin: 07/12/16 21:03 Dose: 20 mg Pantoprazole Sodium (Protonix Ec Tab) 40 mg PO DAILY [facility] Last Admin: 07/12/16 11:17 Dose: Not Given Rivaroxaban (Xarelto) 15 mg PO BID [facility] Saccharomyces Boulardii (Florastor) 250 mg PO TID [facility] Last Admin: 07/12/16 17:38 Dose: 250 mg Zolpidem Tartrate (Ambien) 5 mg PO HS PRN PRN Reason: Insomnia - Labs Labs: 07/07/16 08:55 07/07/16 08:55 PT 24.2 SECONDS (9.7-12.2) H 07/04/16 17:27 INR 2.1 07/04/16 17:27 - Constitutional Appears: Well - Neck Exam Neck Exam: absent: Tenderness - Respiratory Exam Respiratory Exam: Clear to Ausculation Bilateral - Cardiovascular Exam Cardiovascular Exam: RRR - GI/Abdominal Exam GI & Abdominal Exam: Soft, Hypoactive Bowel Sounds. absent: Tenderness - Extremities Exam Extremities Exam: absent: Pedal Edema - Neurological Exam Neurological Exam: Alert, Awake, Oriented x3 Assessment and Plan (1) Dehydration Status: Acute (2) Weight loss Assessment & Plan: Follow weights. EGD and colonoscopy OK Status: Acute (3) Deep vein thrombosis (DVT) of right lower extremity Status: Acute (4) Hx pulmonary embolism Status: Acute (5) Anxiety Status: Acute (6) Bipolar disorder Status: Acute (7) Colitis Status: Acute (8) Constipation Status: Acute (9) DMII (diabetes mellitus, type 2) Status: Acute (10) Respiratory distress Status: Acute (11) Seizure Status: Acute (12) Colon polyps Status: Acute
--- NOTE | 2016-07-13 10:04 | PN ---
DATE: 07/13/2016 FOLLOWUP PROGRESS NOTE SUBJECTIVE: The patient is seen. The patient is still very obsessed about his diabetes and concerne d about eating, although his blood sugar this morning is 93. The patient had a GI workup, EGD, colon oscopy. No significant results. The patient also wants to go home today. The patient is currently compliant with his meds, but still very worried about his diabetes, and has been asking for insulin s hots, despite his blood sugar is running below 100. VITAL SIGNS: Temperature is 97.5. Pulse is 85. Blood pressure is 122/80, respirations 20. Oxygen sat is 99%. REVIEW OF SYSTEMS: GENERAL: The patient is alert but feeling weak, seen in his room. The patient is still worried abou t his appetite. SKIN: No pruritus. HEENT: No headache, no dizziness. NECK: Supple. RESPIRATORY: No dyspnea. CARDIOVASCULAR: No chest pain. GASTROINTESTINAL: Appetite is still very poor. No nausea, no vomiting. EXTREMITIES: Gait is unsteady. MUSCULOSKELETAL: Still feels weak. NEUROLOGIC: Alert and oriented x 3. GENITOURINARY: No urinary problems. MENTAL STATUS EXAMINATION: Elderly male who looks stated age. Mood is chronically depressed. Affec t is reactive. Speech spontaneous. Thought process coherent. Thought content: The patient wants t o go home. The patient seems to be obsessed about his blood sugar control with his diabetes, but the patient's hemoglobin A1c is well-controlled. The patient's hemoglobin A1c is only 5.6. No psychosi s. No suicidal or homicidal ideation. Attention and memory seem to be fair. Insight and judgment f air. Impulse control is fair. IMPRESSION: Schizoaffective disorder, bipolar type, as well as diabetes, failure to thrive. PLAN AND RECOMMENDATIONS: The patient is seen, meds reviewed. Continue present psych meds. The lian ent can be discharged once medically cleared. Psych-basilio, he is stable to be discharged to home to h is . The patient advised to follow up in my office in 1 week. Medication-basilio, the patient to continue his current psych medications. The patient is on Ambien 5 m g at bedtime, which he has not been taking, as well as to continue the clonazepam 2 mg at bedtime, an d the Zyprexa 20 mg at bedtime. Eh Pulido MD cc: [id number] TT: 07/13/2016 10:03:39 Confirmation # [id number] Dictation # [id number]
[2016-07-13] MEDS: Saccharomyces Boulardi 250 mg Cap PO SCH ×2 (10:35→14:29)
[2016-07-13] MEDS: Pantoprazole 40 mg EC Tab PO SCH (10:36)
--- NOTE | 2016-07-13 15:12 | CP.PCM.PN ---
Subjective - Date & Time of Evaluation Date of Evaluation: 07/13/16 Time of Evaluation: 11:00 - Subjective Subjective: [facility] NOT[facility] Pt seen today , states feels ok, denies any abdominal pain, N/V,/D ,tolerating diet s/p EGD seen by Dr. Acosta , cleared for discharge home today an d f/u with his office in 1 week, resume home medications As per EDMUNDO- Maggy, Pt and family refused Home care services Objective - Vital Signs/Intake and Output Vital Signs (last 24 hours): Temp Pulse Resp BP Pulse Ox 97.5 F L 85 20 122/80 99 07/13/16 08:00 07/13/16 08:00 07/13/16 08:00 07/13/16 08:00 07/13/16 08:00 - Medications Medications: Current Medications Clonazepam (Klonopin) 2 mg PO HS [facility] Last Admin: 07/12/16 21:03 Dose: 2 mg Docusate Sodium (Colace) 100 mg PO BID [facility] Last Admin: 07/13/16 10:36 Dose: 100 mg Insulin Human Regular (Novolin R) [address] [facility] PRN Reason: Protocol Last Admin: 07/13/16 12:30 Dose: Not Given Lactulose (Enulose) 10 gm PO BID [facility] Last Admin: 07/13/16 10:34 Dose: 10 gm Levetiracetam (Keppra) 750 mg PO BID [facility] Last Admin: 07/13/16 10:35 Dose: 750 mg Metoprolol Tartrate (Lopressor) 50 mg PO Q12 [facility] Last Admin: 07/13/16 10:35 Dose: 50 mg Olanzapine (Zyprexa) 20 mg PO HS [facility] Last Admin: 07/12/16 21:03 Dose: 20 mg Pantoprazole Sodium (Protonix Ec Tab) 40 mg PO DAILY [facility] Last Admin: 07/13/16 10:36 Dose: 40 mg Rivaroxaban (Xarelto) 15 mg PO BID [facility] Last Admin: 07/13/16 10:36 Dose: 15 mg Saccharomyces Boulardii (Florastor) 250 mg PO TID [facility] Last Admin: 07/13/16 14:29 Dose: 250 mg Zolpidem Tartrate (Ambien) 5 mg PO HS PRN PRN Reason: Insomnia - Labs Labs: 07/07/16 08:55 07/07/16 08:55 PT 24.2 SECONDS (9.7-12.2) H 07/04/16 17:27 INR 2.1 07/04/16 17:27
[2016-07-13 15:52] VITALS: BP 143/82; PULSE 78; TEMP 98; O2SAT 97
--- NOTE | 2016-07-20 20:30 | CP.PCM.DIS ---
Provider - Provider Date of Admission: 07/06/16 12:45 Attending physician: Robert Gusman MD Time Spent in preparation of Discharge (in minutes): 45 Hospital Course - Lab Results Lab Results: Most Recent Lab Values WBC 5.7 K/uL (4.8-10.8) 07/07/16 08:55 RBC 4.32 Mil/uL (4.40-5.90) L 07/07/16 08:55 Hgb 12.9 g/dL (12.0-18.0) 07/07/16 08:55 Hct 38.0 % (35.0-51.0) 07/07/16 08:55 MCV 87.8 fL (80.0-94.0) 07/07/16 08:55 MCH 29.9 pg (27.0-31.0) 07/07/16 08:55 MCHC 34.0 g/dL (33.0-37.0) 07/07/16 08:55 RDW 14.9 % (11.5-14.5) H 07/07/16 08:55 Plt Count 167 K/uL (130-400) 07/07/16 08:55 MPV 8.2 fL (7.2-11.7) 07/07/16 08:55 Neut % (Auto) 54.1 % (50.0-75.0) 07/07/16 08:55 Lymph % (Auto) 32.7 % (20.0-40.0) 07/07/16 08:55 Lamar % (Auto) 10.0 % (0.0-10.0) 07/07/16 08:55 Eos % (Auto) 2.4 % (0.0-4.0) 07/07/16 08:55 Baso % (Auto) 0.8 % (0.0-2.0) 07/07/16 08:55 Neut # 3.1 K/uL (1.8-7.0) 07/07/16 08:55 Lymph # 1.9 K/uL (1.0-4.3) 07/07/16 08:55 Lamar # 0.6 K/uL (0.0-0.8) 07/07/16 08:55 Eos # 0.1 K/uL (0.0-0.7) 07/07/16 08:55 Baso # 0.0 K/uL (0.0-0.2) 07/07/16 08:55 ESR 13 mm/hr (0-15) 07/07/16 08:55 PT 24.2 SECONDS (9.7-12.2) H 07/04/16 17:27 INR 2.1 07/04/16 17:27 Sodium 139 mmol/L (132-148) 07/07/16 08:55 Potassium 3.8 mmol/L (3.6-5.2) 07/07/16 08:55 Chloride 97 mmol/L (98-107) L 07/07/16 08:55 Carbon Dioxide 28 mmol/L (22-30) 07/07/16 08:55 Anion Gap 18 (10-20) 07/07/16 08:55 BUN 11 mg/dL (9-20) 07/07/16 08:55 Creatinine 0.8 MG/DL (0.8-1.5) 07/07/16 08:55 Est GFR ( Amer) > 60 07/07/16 08:55 Est GFR (Non-Af Amer) > 60 07/07/16 08:55 POC Glucose (mg/dL) 122 mg/dL (65-110) H 07/13/16 16:07 Random Glucose 104 mg/dL (75-110) 07/07/16 08:55 Hemoglobin A1c 5.6 % (4.2-6.5) 07/07/16 07:32 Calcium 9.4 mg/dl (8.6-10.4) 07/07/16 08:55 Total Bilirubin 0.6 mg/dL (0.2-1.3) 07/07/16 08:55 AST 16 U/L (17-59) L 07/07/16 08:55 ALT 21 U/L (21-72) 07/07/16 08:55 Alkaline Phosphatase 42 U/L (38-126) 07/07/16 08:55 Troponin I < 0.0120 ng/mL (0.00-0.120) 07/04/16 17:27 C-React Prot High Sens 1.48 mg/L (1.00-3.00) 07/07/16 08:55 Total Protein 6.2 g/dL (6.3-8.3) L 07/07/16 08:55 Albumin 3.7 g/dL (3.5-5.0) 07/07/16 08:55 Globulin 2.5 gm/dL (2.2-3.9) 07/07/16 08:55 Albumin/Globulin Ratio 1.5 (1.0-2.1) 07/07/16 08:55 Angiotensin Convert Enz 27 U/L (9-67) 07/07/16 10:29 Alpha Fetoprotein 1.0 ng/mL (0.0-7.5) 07/07/16 08:55 Carcinoembryonic Ag 1.9 ng/mL (0-3.0) 07/07/16 08:55 CA 125 Antigen < 5.5 U/mL (0-35) 07/07/16 08:55 TSH 3rd Generation 0.78 mIU/L (0.46-4.68) 07/04/16 19:47 Urine Color Yellow (YELLOW) 07/04/16 17:42 Urine Clarity Clear (Clear) 07/04/16 17:42 Urine pH 5.0 (5.0-8.0) 07/04/16 17:42 Ur Specific Te[place]y 1.020 (1.003-1.030) 07/04/16 17:42 Urine Protein Negative mg/dL (NEGATIVE) 07/04/16 17:42 Urine Glucose (UA) Normal mg/dL (Normal) 07/04/16 17:42 Urine Ketones 1+ mg/dL (NEGATIVE) H 07/04/16 17:42 Urine Blood Negative (NEGATIVE) 07/04/16 17:42 Urine Nitrate Negative (NEGATIVE) 07/04/16 17:42 Urine Bilirubin Negative (NEGATIVE) 07/04/16 17:42 Urine Urobilinogen Normal mg/dL (0.2-1.0) 07/04/16 17:42 Ur Leukocyte Esterase Neg María/uL (Negative) 07/04/16 17:42 Urine WBC (Auto) 3 /hpf (0-5) 07/04/16 17:42 Urine RBC (Auto) 1 /hpf (0-3) 07/04/16 17:42 Urine Bacteria Rare (<OCC) 07/04/16 17:42 Levetiracetam 17.8 mcg/mL (()) 07/04/16 17:27 Influenza Typ A,B (EIA) Negative for flu a/b (NEGATIVE) 07/04/16 17:06 - Hospital Course Hospital Course: Chief complaint: failure to thrive and loss of wt History present illness: 60-year-old male with history of anxiety, depression, bipolar disease, peptic ulcer disease, diabetes recent diagnosed, history of seizure disorder recently admitted to the [facility]. increasing wt loss and very anxious poor appetitie no abd pain no nausea weakness very nervousness noted He is being followed up by psychiatrist, who is giving the medication for antianxiety. He is very concerned about his multiple medical issues including diabetes, blood clots, DVT, blood thinner. Is also concerned about taking multiple medications. According to the patient's he is very concerned about eating food. He is losing weight recently. Because of this. His anxiety is getting worse recently. He's not sleeping well. Shaking even at night sometimes. Unable to sleep well. Current medications was up dated with the patient today. Hospital medical records reviewed. Past medical history: Anxiety, peptic ulcer disease, diabetes Surgical history: History of lung collapse in the past as a child. Family history: Father had a history of prostate cancer, and also had a history of alcoholism. Mother is secondary to breast cancer and diabetes. Siblings, 2 brothers and 2 sisters. One sister secondary to Seroquel overdose. Social history: Denies any alcohol or smoking, denies any caffeine use. Exercise none. Current medications reviewed from the chart. Review of systems: He has no headache, he denies any glaucoma, cataract. No chest pain. Denies any palpitation, but the increasing nervousness, anxiety, and agitation noted. Patient is complaining of his stomach is very delicate, but the regular BM. He is a peptic ulcer disease. Urine is normal, BPH noted. Patient in the past is seen by urologist and had a biopsy in the past. Dry skin noted, numbness and tingling sensation noted, sleeping is not good. On examination: HEENT PERRLA, neck supple No thyromegaly was noted and no cervical adenopathy noted Chest bilateral good air entry, no wheezing or rales noted CVS regular heart sound, no murmur Abdomen soft and no organomegaly Extremities no pedal edema, no leg swelling, pedal pulses are good. DIVING FISHER alert awake oriented x3 no functional neurological deficit. Patient is concerned about anxiety, and agitation noted at times. Patient hospital records reviewed Patient was intubated in the hospital secondary to episode of seizure episode, intubated and extubated in the past Patient also had a high probability VQ scan and it currently placed on anticoagulation in the past not CT chest not conclussive Hemoglobin A1c 7.4. Otherwise blood pressure is controlled well. Assessment/recommendation: 60-year-old male with history of recently diagnosed with diabetes, anxiety, peptic ulcer disease, episode of seizure disorder. Not clear at this time. Currently taking Keppra. Recently because of increasing anxiety, worseing wt loss failure to thrive will get the ct abd and pelvis calarie count nutritional consult psy consult course in the hospital: Patient was admitted, calorie count was started. Patient is having significant calorie intake reduction. Gastrointestinal evaluation was called. Patient underwent extensive workup including CT scan of the abdomen and upper endoscopy, and colonoscopy, findings suggestive of no problems including cancers ,illnesses which is causing malabsorption. Meanwhile patient condition slowly stabilized. Patient still having symptoms of psychotic withdrawal, and he was feeling fearful about the food and eating. Is concerned about the blood sugar. spoke to psychiatrist Medication was adjusted patient is currently [facility] Will follow the patient. Discharge Exam - Head Exam Head Exam: ATRAUMATIC, NORMOCEPHALIC Discharge Plan - Discharge Medications Prescriptions: Olanzapine [Zyprexa] 20 mg PO HS #1 tablet - Follow Up Plan Condition: STABLE Disposition: HOME/ ROUTINE Instructions: Olanzapine (By mouth), Failure to Thrive (DC), Dehydration (DC), Dyspnea (GEN) Additional Instructions: f/u with Dr. Acosta office in 1 week Resume all Home medications Referrals: Robert Gusman MD [Family Provider] -
== END 2016-07-13 17:45 | disposition home or self-care (01) | DRG 641 ==
LOC: C.ER 16:00 → C.9E 20:50 → C.3T 22:42 → OBSVTOIN 07-06 12:45
PROVIDERS: ADMIT Internal Medicine; ATTEND Internal Medicine
PROC: 0DBL8ZX Excision of Transverse Colon, Via Natural or Artificial Opening Endoscopic, Diagnostic (ICD-10-PCS; 2016-07-10)
PROC: 0DBM8ZX Excision of Descending Colon, Via Natural or Artificial Opening Endoscopic, Diagnostic (ICD-10-PCS; 2016-07-10)
PROC: 0DBH8ZX Excision of Cecum, Via Natural or Artificial Opening Endoscopic, Diagnostic (ICD-10-PCS; 2016-07-10)
PROC: 0DBK8ZX Excision of Ascending Colon, Via Natural or Artificial Opening Endoscopic, Diagnostic (ICD-10-PCS; principal; 2016-07-10 14:51)
PROC: 0DB48ZX Excision of Esophagogastric Junction, Via Natural or Artificial Opening Endoscopic, Diagnostic (ICD-10-PCS; 2016-07-12)
DX: E86.0 Dehydration (principal); R62.7 Adult failure to thrive; E11.40 Type 2 diabetes mellitus with diabetic neuropathy, unspecified; K52.9 Noninfective gastroenteritis and colitis, unspecified; Z68.1 Body mass index [BMI] 19.9 or less, adult; I82.501 Chronic embolism and thrombosis of unspecified deep veins of right lower extremity; F25.0 Schizoaffective disorder, bipolar type; R63.0 Anorexia; K22.70 Barrett's esophagus without dysplasia; N40.0 Benign prostatic hyperplasia without lower urinary tract symptoms; D12.2 Benign neoplasm of ascending colon; K31.7 Polyp of stomach and duodenum; D12.0 Benign neoplasm of cecum; D12.4 Benign neoplasm of descending colon; D12.3 Benign neoplasm of transverse colon; K64.0 First degree hemorrhoids; F51.04 Psychophysiologic insomnia; R63.4 Abnormal weight loss; F41.9 Anxiety disorder, unspecified; F45.9 Somatoform disorder, unspecified; Z86.711 Personal history of pulmonary embolism; Z79.84 Long term (current) use of oral hypoglycemic drugs; Z79.02 Long term (current) use of antithrombotics/antiplatelets

== ENCOUNTER 2016-10-09 07:37 | Inpatient (IN) | payer MEDICARE, OTHER ==
[2016-10-09] MEDS ORDERED: Sodium Chloride 0.9% 1,000 ML IV STA (08:27)
--- NOTE | 2016-10-09 08:41 | C.PDOC ---
History Of Present Illness 61 y/o M c PMHx HTN, DM, anxiety, pulmonary emboli on Xarelto, deviated septum, seizures on Keppra p/w abdominal pain x 2 days. Pain is LUQ radiating to RUQ, dull, intermittent, brought on by eating food and associated with nausea. Patient also reports constipation, last BM was 2 days ago. Patient reports he is feeling anxious as well and did not take his Ativan this morning. PMD Uzma. Time Seen by Provider: 10/09/16 08:14 Chief Complaint (Nursing): Abdominal Pain Past Medical History Vital Signs: Last Vital Signs Temp 98.0 F 10/09/16 12:33 Pulse 98 H 10/09/16 12:33 Resp 16 10/09/16 12:33 BP 160/85 H 10/09/16 12:33 Pulse Ox 100 10/09/16 12:33 - Medical History PMH: Anxiety, Bipolar Disorder, Bronchitis, Depression, HTN, Pulmonary Embolism , Schizophrenia (paranoid type) Denies: Diabetes, Hepatitis, HIV, Chronic Kidney Disease, Seizures, Sexually Transmitted Disease Surgical History: Tonsillectomy - [facility] Procedures EXCISION OF ASCENDING COLON, ENDO, DIAGN (07/06/16) EXCISION OF CECUM, ENDO, DIAGN (07/06/16) EXCISION OF DESCENDING COLON, ENDO, DIAGN (07/06/16) EXCISION OF ESOPHAGOGASTRIC JUNCTION, ENDO, DIAGN (07/06/16) EXCISION OF TRANSVERSE COLON, ENDO, DIAGN (07/06/16) GROUP PSYCHOTHERAPY (12/09/15) INDIVIDUAL PSYCHOTHERAPY, COGNITIVE-BEHAVIORAL (12/09/15) INSERTION OF ENDOTRACHEAL AIRWAY INTO TRACHEA, VIA OPENING (11/29/15) PSYCHIAT DRUG THERAP NEC (03/21/06) RESPIRATORY VENTILATION, 24-96 CONSECUTIVE HOURS (11/29/15) Family History: States: Unknown Family Hx - Social History Hx Tobacco Use: No Hx Alcohol Use: No Hx Substance Use: No - Immunization History Hx Tetanus Toxoid Vaccination: No Hx Influenza Vaccination: Yes (2014) Hx Pneumococcal Vaccination: Yes Review Of Systems Except As Marked, All Systems Reviewed And Found Negative. Constitutional: Negative for: Fever Cardiovascular: Negative for: Chest Pain Physical Exam - Physical Exam Additional Physical Exam Comments: Constitutional: No acute distress. Appears anxious. Head: Normocephalic. Atraumatic. Eyes: PERRL. EOMI ENT: Moist mucous membranes. Neck: Supple. Cardiovascular: Regular rate. Tachycardic. Radial pulses 2+ bilaterally. Chest: No tenderness. Respiratory: Clear to auscultation bilaterally. GI: Soft. Nondistended. RUQ tenderness with guarding. Back: No CVA tenderness. No midline tenderness. Musculoskeletal:.R lower leg with swelling. Skin: No rash. Neurologic: Alert, no focal deficit ED Course And Treatment - Laboratory Results Result Diagrams: 10/09/16 08:59 10/09/16 08:59 O2 Sat by Pulse Oximetry: 99 Medical Decision Making Medical Decision Making: RUQ pain, possible cholecystitis, constipation, pancreatitis. R lower leg swollen, patient already on Xarelto but previous charts with no dopplers or noted leg swelling. New DVT? Will send for doppler. Ativan for patient's anxiety, did not take medication today. ED OBSERVATION Date of observation admission: 10/09/16 Time of observation admission: 10:10 - Observation admission statement Patient is being placed in observation because:: abdominal pain - Goals of Observation Goals of observation are:: CT abdomen - Progress Note Progress Note: 1010 US negative for cholecystitis. CT abdomen ordered. [address] Patient with acute R sided DVT while on Xarelto. 1300 PROCEDURE: CT Abdomen and Pelvis with contrast HISTORY: abdominal pain COMPARISON: CT abdomen and pelvis with out IV contrast performed 07/06/16, abdominal ultrasound performed 10/09/16 TECHNIQUE: Contrast dose: 100 mL Visipaque Radiation dose: Total exam DLP = 496.62 mGy-cm. This CT exam was performed using one or more of the following dose reduction techniques: Automated exposure control, adjustment of the mA and/or kV according to patient size, and/or use of iterative reconstruction technique. FINDINGS: LOWER THORAX: No visible consolidation, pleural effusion, or pneumothorax. LIVER: Hypoattenuation of the liver consistent with hepatic steatosis. GALLBLADDER AND BILE DUCTS: Cholelithiasis. PANCREAS: Unremarkable. SPLEEN: Unremarkable. ADRENALS: Unremarkable. A distinct adrenal gland nodule is not identified. KIDNEYS AND URETERS: The kidneys enhance symmetrically. No hydronephrosis or obstructing calculus identified. VASCULATURE: No aortic aneurysm. BOWEL: Stomach is nondistended. Lack of oral contrast limits evaluation for bowel pathology. Bowel loops appear within normal limits of caliber without evidence of obstruction. Mild mucosal thickening of the right colon at the level of the cecum; correlate clinically for possibility of colitis (i.e. infectious, inflammatory, ischemic) . No significant pericecal inflammatory changes are identified. APPENDIX: The appendix is not identified. No secondary signs of acute appendicitis. PERITONEUM: No significant free fluid. No definite free air. LYMPH NODES: No bulky adenopathy identified. BLADDER: Unremarkable. REPRODUCTIVE: Enlarged heterogeneous prostate gland measures approximately 4.4 x 5.3 cm. BONES: Osseous demineralization. Degenerative changes. OTHER FINDINGS: Nonspecific calcifications within the upper abdomen near the shin hepatis, possibly tiny calcified lymph nodes. IMPRESSION: Mild mucosal thickening of the right colon at the level of the cecum; correlate clinically for possibility of colitis (i.e. infectious, inflammatory, ischemic) . No significant pericecal inflammatory changes are identified. Enlarged heterogeneous prostate gland; correlate with PSA. Hepatic steatosis. Additional findings as above. Started on antibiotics for colitis. Dr. Gusman accepts patient to his service. Disposition - Disposition Disposition: HOSPITALIZED Disposition Time: 13:00 Condition: GUARDED - Clinical Impression Clinical Impression: Deep vein thrombosis (DVT) of right lower extremity, Colitis
[2016-10-09] MEDS ORDERED: Sodium Chloride 0.9% 1,000 ML ONE (08:47)
[2016-10-09 09:06] LABS: BASO % 0.7 % (0.0-2.0); EOS # 0.1 K/uL (0.0-0.7); EOS % 1.3 % (0.0-4.0); HEMOGLOBIN 14.5 g/dL (12.0-18.0); LYMPH # 1.4 K/uL (1.0-4.3); MEAN CELL VOLUME 88.4 fL (80.0-94.0); MEAN CORPUSCULAR HEMOGLOBIN 30.8 pg (27.0-31.0); MEAN CORPUSCULAR HGB CONC 34.8 g/dL (33.0-37.0); MEAN PLATELET VOLUME 8.4 fL (7.2-11.7); MONO # 0.5 K/uL (0.0-0.8); MONO % 8.4 % (0.0-10.0); NEUT # 4.3 K/uL (1.8-7.0); NEUT % 67.6 % (50.0-75.0); RBC 4.72 Mil/uL (4.40-5.90); RED CELL DISTRIBUTION WIDTH 13.4 % (11.5-14.5); WHITE BLOOD COUNT 6.4 K/uL (4.8-10.8)
[2016-10-09 09:13] LABS: ALBUMIN 4.1 g/dL (3.5-5.0)
[2016-10-09 09:16] LABS: GFR AFRICAN-AMERICAN > 60; GFR NON-AFRICAN AMERICAN > 60
[2016-10-09 09:17] LABS: ALB/GLOB RATIO 1.5 (1.0-2.1); ALT/SGPT 31 U/L (21-72); AST/SGOT 17 U/L (17-59); BLOOD UREA NITROGEN 17 mg/dL (9-20); CALCIUM 9.3 mg/dl (8.6-10.4); INR 1.2; LIPASE 37 U/L (23-300); PROTHROMBIN TIME 13.1 SECONDS (9.7-12.2)
--- NOTE | 2016-10-09 09:39 | US ---
Abdominal ultrasound History: Abdominal pain. Comparison: None available. Technique: Real-time sonography was performed through the abdomen. Findings: Liver: 16.6 centimeters in length. Increased echogenicity suggestive for fatty infiltration versus hepatic parenchymal disease. Gallbladder: Cholelithiasis. Gallbladder calculus measures up to 1.2 centimeters. Normal wall thickness of 2 millimeters. No gross wall edema. Negative sonographic Suazo's sign. Common bile duct measures 1 centimeter, prominent. Pancreas not well visualized. Spleen measures 11.3 centimeters in length, within normal limits. Visualized aorta and IVC are preserved. Right kidney: 10.4 x 5.6 x 4.6 centimeters, within normal limits. Left Kidney: 11.2 x 5.0 x 5.5 centimeters, within normal limits. Impression: Increased echogenicity of the hepatic parenchymal cortex suggestive for fatty infiltration versus hepatic parenchymal disease. Clinical correlation. Cholelithiasis. No gross wall thickening or wall edema. Negative sonographic Suazo sign. Pancreas not well visualized. Dilated common bile duct measuring up to 1 centimeter. Clinical correlation.
[2016-10-09 10:11] LABS: URINE BILIRUBIN NEGATIVE (NEGATIVE); URINE BLOOD NEGATIVE (NEGATIVE); URINE CLARITY Clear (Clear); URINE COLOR Yellow (YELLOW); URINE GLUCOSE (UA) NORMAL (Normal); URINE LEUKOCYTE ESTERASE NEG Leu/uL (Negative); URINE NITRATE NEGATIVE (NEGATIVE); URINE PROTEIN NEGATIVE (NEGATIVE); URINE UROBILINOGEN NORMAL mg/dL (0.2-1.0)
[2016-10-09] MEDS ORDERED: Iodixanol 320 mg/ml 150 ml Bottle IV ONE (11:40)
--- NOTE | 2016-10-09 13:01 | CT ---
PROCEDURE: CT Abdomen and Pelvis with contrast HISTORY: abdominal pain COMPARISON: CT abdomen and pelvis with out IV contrast performed 07/06/16, abdominal ultrasound performed 10/09/16 TECHNIQUE: Contrast dose: 100 mL Visipaque Radiation dose: Total exam DLP = 496.62 mGy-cm. This CT exam was performed using one or more of the following dose reduction techniques: Automated exposure control, adjustment of the mA and/or kV according to patient size, and/or use of iterative reconstruction technique. FINDINGS: LOWER THORAX: No visible consolidation, pleural effusion, or pneumothorax. LIVER: Hypoattenuation of the liver consistent with hepatic steatosis. GALLBLADDER AND BILE DUCTS: Cholelithiasis. PANCREAS: Unremarkable. SPLEEN: Unremarkable. ADRENALS: Unremarkable. A distinct adrenal gland nodule is not identified. KIDNEYS AND URETERS: The kidneys enhance symmetrically. No hydronephrosis or obstructing calculus identified. VASCULATURE: No aortic aneurysm. BOWEL: Stomach is nondistended. Lack of oral contrast limits evaluation for bowel pathology. Bowel loops appear within normal limits of caliber without evidence of obstruction. Mild mucosal thickening of the right colon at the level of the cecum; correlate clinically for possibility of colitis (i.e. infectious, inflammatory, ischemic). No significant pericecal inflammatory changes are identified. APPENDIX: The appendix is not identified. No secondary signs of acute appendicitis. PERITONEUM: No significant free fluid. No definite free air. LYMPH NODES: No bulky adenopathy identified. BLADDER: Unremarkable. REPRODUCTIVE: Enlarged heterogeneous prostate gland measures approximately 4.4 x 5.3 cm. BONES: Osseous demineralization. Degenerative changes. OTHER FINDINGS: Nonspecific calcifications within the upper abdomen near the shin hepatis, possibly tiny calcified lymph nodes. IMPRESSION: Mild mucosal thickening of the right colon at the level of the cecum; correlate clinically for possibility of colitis (i.e. infectious, inflammatory, ischemic). No significant pericecal inflammatory changes are identified. Enlarged heterogeneous prostate gland; correlate with PSA. Hepatic steatosis. Additional findings as above.
[2016-10-09] MEDS ORDERED: metroNIDAZOLE IV 500 mg/100 ml 500 MG/100 ML BAG IVPB STA (13:09)
[2016-10-09] MEDS ORDERED: Ciprofloxacin 400mg/200ml D5W 400 MG/200 ML BAG IVPB STA (13:09)
--- NOTE | 2016-10-09 13:16 | VASCLAB ---
PROCEDURE: LBilateral Lower Extremity Venous Duplex Exam. HISTORY: R leg swelling, r/o DVT PRIORS: No prior venous duplex exam. TECHNIQUE: Bilateral common femoral, femoral, popliteal and posterior tibial, peroneal and great saphenous veins were evaluated. Flow was assessed with color Doppler, compressibility, assessment of phasic flow and augmentation response. Report prepared by LINDA Llanes FINDINGS: RIGHT: 1. Common Femoral Vein: 1.1. Compressibility - Fully compressible: Thrombus - None : Flow - Phasic: Augmentation -Normal: Reflux - None. 2. Femoral Vein: 2.1. Compressibility - Partial: Thrombus - Acute : Flow - Phasic: Augmentation -Normal: Reflux - None. 3. Popliteal Vein: 3.1. Compressibility - Partial: Thrombus - Acute : Flow - Reduced : Augmentation -Normal: Reflux - None. 4. Posterior Tibial Vein: 4.1. Compressibility - Fully compressible: Thrombus - None: Flow - Phasic: Augmentation -Normal: Reflux - None. 5. Peroneal Vein: 5.1. Compressibility - Fully compressible: Thrombus - None: Flow - Phasic: Augmentation -Normal: Reflux - None. 6. Great Saphenous Vein: 6.1. Compressibility - Fully compressible: Thrombus - None: Flow - Phasic: Augmentation - Normal: Reflux - None. LEFT: 1. Common Femoral Vein: 1.1. Compressibility - Fully compressible: Thrombus - None: Flow - Phasic: Augmentation -Normal: Reflux - None. 2. Femoral Vein: 2.1. Compressibility - Fully compressible: Thrombus - None: Flow - Phasic: Augmentation -Normal: Reflux - None. 3. Popliteal Vein: 3.1. Compressibility - Fully compressible: Thrombus - None : Flow - Phasic: Augmentation -Normal: Reflux - None. 4. Posterior Tibial Vein: 4.1. Compressibility - Fully compressible: Thrombus - None: Flow - Phasic: Augmentation -Normal: Reflux - None. 5. Peroneal Vein: 5.1. Compressibility - Fully compressible: Thrombus - None: Flow - Phasic: Augmentation -Normal: Reflux - None. 6. Great Saphenous Vein: 6.1. Compressibility - Fully compressible: Thrombus - None: Flow - Phasic: Augmentation - Normal: Reflux - None. OTHER FINDINGS: Right: None significant. Left: None significant. IMPRESSION: Right: Partial acute deep vein thrombosis of the right femoral and popliteal veins, with mild reduction of the venous return. Left: No evidence of deep or superficial vein thrombosis of the left lower extremity. Normal valve function noted of the left side. The above findings were reported by the technologist infectious disease, to the emergency room nurse Brenda, on 10/09/16 at 10:34 a.m.
[2016-10-09] MEDS ORDERED: Ciprofloxacin 400mg/200ml D5W 400 MG/200 ML BAG IVPB ONE (13:19)
[2016-10-09] MEDS ORDERED: metroNIDAZOLE IV 500 mg/100 ml 500 MG/100 ML BAG ONE (13:19)
[2016-10-09 16:17] VITALS: RESP 20
--- NOTE | 2016-10-09 18:38 | CP.PCM.HP ---
History of Present Illness - History of Present Illness History of Present Illness: Chief complaint: Not feeling well, abdominal pain History present illness: 61-year-old male with history of bipolar disease, schizophrenia, major depression and anxiety seen by psychiatrist, admitted to the hospital today with acute abdominal pain. Patient came to the emergency room because of increasing pain in the abdomen, started yesterday night, gradually got worse, and this morning patient was having increasing pain, increasing weakness, and feeling nauseated, but no vomiting noted. Patient also having some weakness in the legs. He is not walking much, and he is also feeling extremely anxious, he is not eating well, he has a significant weight loss gradually, and the major weakness noted recently. During the last hospitalization patient was admitted with a similar symptoms, at the time had a workup done for weight loss. But negative study. Patient also had an episode of positive VQ scan, and suspected pulmonary embolism, placed on anticoagulation. But patient does not have any respiratory symptoms, no chest pain. He denies any dizziness, but weakness in the lethargic noted. Sometimes increasingly tired. Nighttime patient is also having increasing anxiety, not sleeping well. He also suffering from significant constipation. Past medical history: Schizophrenia, bipolar disease. Anxiety. Possible anorexia Surgical history: None Allergies: Patient has a multiple allergies including Seroquel, Haldol, lithium. Family history noncontributory Personal history patient is a lifelong nonsmoker nonalcoholic Review of system: Patient is currently having minimal headache, nausea noted, abdominal pain noted , denies any chest pain, weakness and tiredness noted. Significant constipation present Increasing muscle wasting and weakness noted Vital signs reviewed, vital signs reviewed No neck vein distention noted, dryness of the mouth noted Chest good air entry bilaterally, no wheezing or rales noted CVS regular heart sound, no murmur noted Abdomen soft, nontender. 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 Patient also had a CAT scan of the abdomen showing evidence of colitis involving the cecal area. Assessment and recommendation: 61-year-old male with history of schizophrenia, anxiety. Possible acute colitis, unclear, associated with the constipation. Patient also has acute on chronic DVT involving the right leg. Patient even though on anticoagulation, now having another episode of DVT. We will continue the Lovenox for now. We'll get hematology evaluation possibly if needed. We'll start the patient on IV antibiotic Cipro and Flagyl. Gastrointestinal evaluation. Continue the current treatment. Discussed with the family. We'll get a psychiatry evaluation. Patient is a significant anxiety, and concerned about his weight loss and also blood sugar. Patient has a mild elevation of the hemoglobin A1c, will continue to monitor Accu-Chek Present on Admission - Present on Admission Any Indicators Present on Admission: No History of DVT/PE: No History of Uncontrolled Diabetes: No Urinary Catheter: No Decubitus Ulcer Present: No Past Patient History - Infectious Disease Hx of Infectious Diseases: None - Past Medical History & Family History Past Medical History?: Yes - Past Social History Smoking Status: Never Smoked - CARDIAC Hx Hypertension: Yes - PULMONARY Hx Bronchitis: Yes Hx Pulmonary Embolism: Yes - NEUROLOGICAL Hx Seizures: No - HEENT Hx HEENT Problems: No - RENAL Hx Chronic Kidney Disease: No - ENDOCRINE/METABOLIC Hx Diabetes Mellitus Type 2: Yes - HEMATOLOGICAL/ONCOLOGICAL Hx Human Immunodeficiency Virus (HIV): No - INTEGUMENTARY Hx Dermatological Problems: No - MUSCULOSKELETAL/RHEUMATOLOGICAL Hx Musculoskeletal Disorders: No Hx Falls: No - GASTROINTESTINAL Hx Gastrointestinal Disorders: No - GENITOURINARY/GYNECOLOGICAL Hx Sexually Transmitted Disorders: No - PSYCHIATRIC Hx Anxiety: Yes Hx Bipolar Disorder: Yes Hx Depression: Yes Hx Schizophrenia: Yes (paranoid type) Hx Substance Use: No - SURGICAL HISTORY Hx Tonsillectomy: Yes - ANESTHESIA Hx Anesthesia: Yes Hx Anesthesia Reactions: No Hx Malignant Hyperthermia: No Meds Allergies/Adverse Reactions: Allergies Allergy/AdvReac Type Severity Reaction Status Date / Time quetiapine Allergy Severe SHORTNESS Verified 07/04/16 16:43 OF BREATH haloperidol [From Haldol] AdvReac SHORTNESS Verified 07/04/16 16:43 OF BREATH haloperidol lactate AdvReac SHORTNESS Verified 07/04/16 16:43 [From Haldol] OF BREATH lithium AdvReac Verified 07/04/16 16:43 Results - Vital Signs Recent Vital Signs: Last Vital Signs Temp 98.4 F 10/09/16 16:40 Pulse 99 H 10/09/16 16:40 Resp 20 10/09/16 16:40 BP 145/83 10/09/16 16:40 Pulse Ox 98 10/09/16 16:40 - Labs Result Diagrams: 10/09/16 08:59 10/09/16 08:59
[2016-10-09] MEDS: Enoxaparin 60 mg Syringe SC SCH (22:17)
[2016-10-10] MEDS: metroNIDAZOLE IV 500 mg/100 ml 500 MG/100 ML BAG IVPB SCH ×3 (03:45→20:00)
[2016-10-10] MEDS: Ciprofloxacin 400mg/200ml D5W 400 MG/200 ML BAG IVPB SCH ×2 (04:45→16:00)
[2016-10-10 06:38] LABS: BASO # 0.1 K/uL (0.0-0.2); EOS # 0.1 K/uL (0.0-0.7); EOS % 2.2 % (0.0-4.0); LYMPH # 1.5 K/uL (1.0-4.3); MEAN CELL VOLUME 89.1 fL (80.0-94.0); MEAN CORPUSCULAR HEMOGLOBIN 30.8 pg (27.0-31.0); MEAN CORPUSCULAR HGB CONC 34.5 g/dL (33.0-37.0); MEAN PLATELET VOLUME 8.1 fL (7.2-11.7); MONO # 0.7 K/uL (0.0-0.8); MONO % 12.6 % (0.0-10.0); NEUT # 3.4 K/uL (1.8-7.0); NEUT % 58.2 % (50.0-75.0); NRBC % 0.1 % (0.0-2.0); RBC 4.21 Mil/uL (4.40-5.90); RED CELL DISTRIBUTION WIDTH 13.6 % (11.5-14.5); WHITE BLOOD COUNT 5.8 K/uL (4.8-10.8)
[2016-10-10 06:47] LABS: ALBUMIN 3.6 g/dL (3.5-5.0)
[2016-10-10 06:50] LABS: ALB/GLOB RATIO 1.5 (1.0-2.1); AST/SGOT 13 U/L (17-59); BLOOD UREA NITROGEN 13 mg/dL (9-20); GFR AFRICAN-AMERICAN > 60; GFR NON-AFRICAN AMERICAN > 60
[2016-10-10 06:51] LABS: ALT/SGPT 25 U/L (21-72); CALCIUM 9.1 mg/dl (8.6-10.4)
--- NOTE | 2016-10-10 08:37 | CP.PCM.CON ---
History of Present Illness - History of Present Illness History of Present Illness: ASked to see pt for abdom pain. Abdom pain- lower, dull worse x 2 dyys. Less today. Poor p.o. + wt loss. Had colonoscopy 06/30 showing colon polyps. No colitis. Now CT shows colon thickening . Pt denies diarrhea, RB. Review of Systems - Constitutional Constitutional: Fatigue, Weight Loss. absent: Chills, Headache - EENT Eyes: absent: Diplopia - Cardiovascular Cardiovascular: absent: Chest Pain, Dyspnea - Respiratory Respiratory: absent: Dyspnea, Hemoptysis, Wheezing - Gastrointestinal Gastrointestinal: Abdominal Pain, Bloating. absent: Diarrhea, Dysphagia, Hematemesis, Hematochezia, Loose Stools, Melena, Vomiting - Genitourinary Genitourinary: absent: Flank Pain, Hematuria - Musculoskeletal Musculoskeletal: absent: Muscle Cramps, Muscle Weakness - Integumentary Integumentary: absent: Jaundice - Neurological Neurological: absent: Convulsions Past Patient History - Infectious Disease Hx of Infectious Diseases: None - Past Medical History & Family History Past Medical History?: Yes - Past Social History Smoking Status: Never Smoked - CARDIAC Hx Hypertension: Yes - PULMONARY Hx Bronchitis: Yes Hx Pulmonary Embolism: Yes - NEUROLOGICAL Hx Seizures: No - HEENT Hx HEENT Problems: No - RENAL Hx Chronic Kidney Disease: No - ENDOCRINE/METABOLIC Hx Diabetes Mellitus Type 2: Yes - HEMATOLOGICAL/ONCOLOGICAL Hx Human Immunodeficiency Virus (HIV): No - INTEGUMENTARY Hx Dermatological Problems: No - MUSCULOSKELETAL/RHEUMATOLOGICAL Hx Musculoskeletal Disorders: No Hx Falls: No - GASTROINTESTINAL Hx Gastrointestinal Disorders: No - GENITOURINARY/GYNECOLOGICAL Hx Sexually Transmitted Disorders: No - PSYCHIATRIC Hx Anxiety: Yes Hx Bipolar Disorder: Yes Hx Depression: Yes Hx Schizophrenia: Yes (paranoid type) Hx Substance Use: No - SURGICAL HISTORY Hx Tonsillectomy: Yes - ANESTHESIA Hx Anesthesia: Yes Hx Anesthesia Reactions: No Hx Malignant Hyperthermia: No Meds Allergies/Adverse Reactions: Allergies Allergy/AdvReac Type Severity Reaction Status Date / Time quetiapine Allergy Severe SHORTNESS Verified 07/04/16 16:43 OF BREATH haloperidol [From Haldol] AdvReac SHORTNESS Verified 07/04/16 16:43 OF BREATH haloperidol lactate AdvReac SHORTNESS Verified 07/04/16 16:43 [From Haldol] OF BREATH lithium AdvReac Verified 07/04/16 16:43 - Medications Medications: Current Medications Docusate Sodium (Colace) 100 mg PO BID [facility] Enalapril Maleate (Vasotec) 5 mg PO DAILY [facility] Enoxaparin Sodium (Lovenox) 60 mg SC Q12 [facility] Last Admin: 10/09/16 22:17 Dose: 60 mg Ciprofloxacin (Cipro 400mg/200ml Dsw) 400 mg in 200 mls @ 133 mls/hr IVPB Q12H [facility] Last Admin: 10/10/16 04:45 Dose: 133 mls/hr Metronidazole (Flagyl) 500 mg in 100 mls @ 100 mls/hr IVPB Q8H [facility] Last Admin: 10/10/16 03:45 Dose: 100 mls/hr Levetiracetam (Keppra) 750 mg PO BID [facility] Lorazepam (Ativan) 1 mg PO TID [facility] Metoprolol Tartrate (Lopressor) 50 mg PO Q12 [facility] Last Admin: 10/09/16 22:18 Dose: 50 mg Olanzapine (Zyprexa) 20 mg PO HS [facility] Last Admin: 10/09/16 22:17 Dose: 20 mg Pantoprazole Sodium (Protonix Ec Tab) 40 mg PO DAILY [facility] Zolpidem Tartrate (Ambien) 5 mg PO HS PRN PRN Reason: Insomnia Physical Exam - Constitutional Appears: Non-toxic - ENT Exam ENT Exam: Mucous Membranes Dry - Respiratory Exam Respiratory Exam: Clear to Auscultation Bilateral - Cardiovascular Exam Cardiovascular Exam: RRR - GI/Abdominal Exam GI & Abdominal Exam: Normal Bowel Sounds, Soft. absent: Distended, Firm, Guarding, Mass, Tenderness - Extremities Exam Extremities exam: Positive for: pedal pulses present - Neurological Exam Neurological exam: Alert, Oriented x3 - Psychiatric Exam Psychiatric exam: Depressed Results - Vital Signs Recent Vital Signs: Last Vital Signs Temp 98.7 F 10/10/16 07:55 Pulse 97 H 10/10/16 07:55 Resp 20 10/10/16 07:55 BP 159/89 H 10/10/16 07:55 Pulse Ox 97 10/10/16 07:55 - Labs Result Diagrams: 10/10/16 06:23 10/10/16 06:23 Labs: Laboratory Results - last 24 hr 10/09/16 10/09/16 10/10/16 16:56 21:36 06:23 WBC 5.8 RBC 4.21 L Hgb 13.0 Hct 37.5 MCV 89.1 MCH 30.8 MCHC 34.5 RDW 13.6 Plt Count 183 MPV 8.1 Neut % (Auto) 58.2 Lymph % (Auto) 26.0 Richardson % (Auto) 12.6 H Eos % (Auto) 2.2 Baso % (Auto) 1.0 Neut # 3.4 Lymph # 1.5 Richardson # 0.7 Eos # 0.1 Baso # 0.1 Sodium Potassium Chloride Carbon Dioxide Anion Gap BUN Creatinine Est GFR ( Amer) Est GFR (Non-Af Amer) POC Glucose (mg/dL) 113 H 117 H Random Glucose Calcium Total Bilirubin AST ALT Alkaline Phosphatase Total Protein Albumin Globulin Albumin/Globulin Ratio 10/10/16 10/10/16 06:23 07:26 WBC RBC Hgb Hct MCV MCH MCHC RDW Plt Count MPV Neut % (Auto) Lymph % (Auto) Richardson % (Auto) Eos % (Auto) Baso % (Auto) Neut # Lymph # Richardson # Eos # Baso # Sodium 136 Potassium 4.0 Chloride 98 Carbon Dioxide 29 Anion Gap 13 BUN 13 Creatinine 0.8 Est GFR ( Amer) > 60 Est GFR (Non-Af Amer) > 60 POC Glucose (mg/dL) 119 H Random Glucose 128 H Calcium 9.1 Total Bilirubin 0.8 AST 13 L D ALT 25 Alkaline Phosphatase 47 Total Protein 6.0 L Albumin 3.6 Globulin 2.4 Albumin/Globulin Ratio 1.5 Assessment & Plan (1) Colitis Assessment and Plan: On CT. i doubt IBD or ischemic. Had recent colonosocpy without colitis. I doubt c difficile- check stools. Status: Acute (2) Deep vein thrombosis (DVT) of right lower extremity Status: Acute Priority: High (3) Anxiety Status: Acute (4) Colon polyps Status: Acute (5) DMII (diabetes mellitus, type 2) Status: Acute (6) Hx pulmonary embolism Status: Acute Priority: High (7) Weight loss Assessment and Plan: Check weights and p.o. intake. Consider calorie count. He ate entire breakbreakfast today. Status: Acute
[2016-10-10] MEDS: Pantoprazole 40 mg EC Tab PO SCH (10:10)
[2016-10-10] MEDS: Enoxaparin 60 mg Syringe SC SCH ×2 (10:11→21:17)
--- NOTE | 2016-10-10 18:16 | CP.PCM.CON ---
History of Present Illness - History of Present Illness History of Present Illness: This is a case of 61 year old male, well known to me with hx of schizoaffective disorder admitted to the hopital for abdominal pain of 2 days. poor appetite and anxiety. Patient referred by Dr. Licona for comanagement of schizoaffective disorder bipolar type. Patient has been complaining of abdominal pain at home, poor appetite and constipation. Patient was given Zyprexa 20 mg pohs, Ativan 1 mg po bid, Ambien 10 mg pohs and Marinol 5 mg po daily at home. Patient reports he is still has poor appetite but feels much calmer with Marinol. Patient dx to have colitis.Patient is reluctant to eat for fear of having his BS getting out of control. Report no si or hi. no psychosis. Patient ate almost 100% of his breakfast this am. Patient complaining of trouble sleeping and wants to take Ambien 5 mg po hs standing instead of prn.Has been dx to have DVT. Past Psych History- long hx of schizoaffective disorder with multiple psych admissions. Hx of ECT tx in the past with good response but pt is refusing to get ECT this time for fear of memory loss. Drug and Alcohol History- denies any Psychosocial history- Patient lives with , Sarai. No children. Review of Systems: Patient is alert and oriented x 3. Seen in his room. Skin- no pruritus. HEENT- no headache, no dizziness, neck is supple. Respiratory- no dyspnea. Cardio- no chest pain. GI- has off and on abdominal pain. Has constipation. Has poor appetite . - no dysuria. Musculoskeletal- feels weak. Neuro- alert and oriented x 3. Patient has trouble sleeping. MSE- skinny looking male, in hospital gown, alert and oriented x 3. Mood is anxious,somatic, chronically depressed. Thought process- coherent-Thought content- no si or hi. still has very poor appetite. No psychosis. No si or hi. Attention and Memory- limited. Insight and Judgment fair- Impulse control fair. DX- Schizoaffective disorder- bipolar type Colitis, DVT, DM Plan and recommendation: Continue Ativan 1 mg po tid Continue Zyprexa 20 mg po hs Change Ambien to 5 mg po hs standing. GI consult. Continue present plan and management. Past Patient History - Infectious Disease Hx of Infectious Diseases: None - Past Medical History & Family History Past Medical History?: Yes - Past Social History Smoking Status: Never Smoked - CARDIAC Hx Hypertension: Yes - PULMONARY Hx Bronchitis: Yes Hx Pulmonary Embolism: Yes - NEUROLOGICAL Hx Seizures: No - HEENT Hx HEENT Problems: No - RENAL Hx Chronic Kidney Disease: No - ENDOCRINE/METABOLIC Hx Diabetes Mellitus Type 2: Yes - HEMATOLOGICAL/ONCOLOGICAL Hx Human Immunodeficiency Virus (HIV): No - INTEGUMENTARY Hx Dermatological Problems: No - MUSCULOSKELETAL/RHEUMATOLOGICAL Hx Musculoskeletal Disorders: No Hx Falls: No - GASTROINTESTINAL Hx Gastrointestinal Disorders: No - GENITOURINARY/GYNECOLOGICAL Hx Sexually Transmitted Disorders: No - PSYCHIATRIC Hx Anxiety: Yes Hx Bipolar Disorder: Yes Hx Depression: Yes Hx Schizophrenia: Yes (paranoid type) Hx Substance Use: No - SURGICAL HISTORY Hx Tonsillectomy: Yes - ANESTHESIA Hx Anesthesia: Yes Hx Anesthesia Reactions: No Hx Malignant Hyperthermia: No Meds Allergies/Adverse Reactions: Allergies Allergy/AdvReac Type Severity Reaction Status Date / Time quetiapine Allergy Severe SHORTNESS Verified 07/04/16 16:43 OF BREATH haloperidol [From Haldol] AdvReac SHORTNESS Verified 07/04/16 16:43 OF BREATH haloperidol lactate AdvReac SHORTNESS Verified 07/04/16 16:43 [From Haldol] OF BREATH lithium AdvReac Verified 07/04/16 16:43 - Medications Medications: Current Medications Docusate Sodium (Colace) 100 mg PO BID [facility] Last Admin: 10/10/16 10:10 Dose: 100 mg Enalapril Maleate (Vasotec) 5 mg PO DAILY [facility] Last Admin: 10/10/16 10:08 Dose: 5 mg Enoxaparin Sodium (Lovenox) 60 mg SC Q12 [facility] Last Admin: 10/10/16 10:11 Dose: 60 mg Ciprofloxacin (Cipro 400mg/200ml Dsw) 400 mg in 200 mls @ 133 mls/hr IVPB Q12H [facility] Last Admin: 10/10/16 16:00 Dose: 133 mls/hr Metronidazole (Flagyl) 500 mg in 100 mls @ 100 mls/hr IVPB Q8H [facility] Last Admin: 10/10/16 12:30 Dose: 100 mls/hr Levetiracetam (Keppra) 750 mg PO BID [facility] Last Admin: 10/10/16 17:08 Dose: 750 mg Lorazepam (Ativan) 1 mg PO TID [facility] Last Admin: 10/10/16 17:08 Dose: 1 mg Metoprolol Tartrate (Lopressor) 50 mg PO Q12 [facility] Last Admin: 10/10/16 10:09 Dose: 50 mg Olanzapine (Zyprexa) 20 mg PO HS [facility] Last Admin: 10/09/16 22:17 Dose: 20 mg Pantoprazole Sodium (Protonix Ec Tab) 40 mg PO DAILY [facility] Last Admin: 10/10/16 10:10 Dose: 40 mg Zolpidem Tartrate (Ambien) 5 mg PO HS [facility] Results - Vital Signs Recent Vital Signs: Last Vital Signs Temp 98.2 F 10/10/16 15:00 Pulse 75 10/10/16 15:00 Resp 20 10/10/16 15:00 BP 150/79 10/10/16 15:00 Pulse Ox 95 10/10/16 15:00 - Labs Result Diagrams: 10/10/16 06:23 10/10/16 06:23 Labs: Laboratory Results - last 24 hr 10/09/16 10/09/16 10/10/16 16:56 21:36 06:23 WBC 5.8 RBC 4.21 L Hgb 13.0 Hct 37.5 MCV 89.1 MCH 30.8 MCHC 34.5 RDW 13.6 Plt Count 183 MPV 8.1 Neut % (Auto) 58.2 Lymph % (Auto) 26.0 Eaton % (Auto) 12.6 H Eos % (Auto) 2.2 Baso % (Auto) 1.0 Neut # 3.4 Lymph # 1.5 Eaton # 0.7 Eos # 0.1 Baso # 0.1 Sodium Potassium Chloride Carbon Dioxide Anion Gap BUN Creatinine Est GFR ( Amer) Est GFR (Non-Af Amer) POC Glucose (mg/dL) 113 H 117 H Random Glucose Calcium Total Bilirubin AST ALT Alkaline Phosphatase Total Protein Albumin Globulin Albumin/Globulin Ratio 10/10/16 10/10/16 10/10/16 06:23 07:26 11:17 WBC RBC Hgb Hct MCV MCH MCHC RDW Plt Count MPV Neut % (Auto) Lymph % (Auto) Eaton % (Auto) Eos % (Auto) Baso % (Auto) Neut # Lymph # Eaton # Eos # Baso # Sodium 136 Potassium 4.0 Chloride 98 Carbon Dioxide 29 Anion Gap 13 BUN 13 Creatinine 0.8 Est GFR ( Amer) > 60 Est GFR (Non-Af Amer) > 60 POC Glucose (mg/dL) 119 H 196 H Random Glucose 128 H Calcium 9.1 Total Bilirubin 0.8 AST 13 L D ALT 25 Alkaline Phosphatase 47 Total Protein 6.0 L Albumin 3.6 Globulin 2.4 Albumin/Globulin Ratio 1.5 10/10/16 16:38 WBC RBC Hgb Hct MCV MCH MCHC RDW Plt Count MPV Neut % (Auto) Lymph % (Auto) Eaton % (Auto) Eos % (Auto) Baso % (Auto) Neut # Lymph # Eaton # Eos # Baso # Sodium Potassium Chloride Carbon Dioxide Anion Gap BUN Creatinine Est GFR ( Amer) Est GFR (Non-Af Amer) POC Glucose (mg/dL) 109 Random Glucose Calcium Total Bilirubin AST ALT Alkaline Phosphatase Total Protein Albumin Globulin Albumin/Globulin Ratio
[2016-10-11] MEDS: metroNIDAZOLE IV 500 mg/100 ml 500 MG/100 ML BAG IVPB SCH ×3 (03:02→21:00)
[2016-10-11] MEDS: Ciprofloxacin 400mg/200ml D5W 400 MG/200 ML BAG IVPB SCH ×2 (04:15→16:01)
[2016-10-11 06:50] LABS: HEMOGLOBIN 12.5 g/dL (12.0-18.0); MEAN CELL VOLUME 89.6 fL (80.0-94.0); MEAN CORPUSCULAR HEMOGLOBIN 31.1 pg (27.0-31.0); MEAN CORPUSCULAR HGB CONC 34.8 g/dL (33.0-37.0); MEAN PLATELET VOLUME 8.5 fL (7.2-11.7); RBC 4.02 Mil/uL (4.40-5.90); RED CELL DISTRIBUTION WIDTH 13.5 % (11.5-14.5); WHITE BLOOD COUNT 5.3 K/uL (4.8-10.8)
[2016-10-11] MEDS: Pantoprazole 40 mg EC Tab PO SCH (09:59)
[2016-10-11] MEDS: Enoxaparin 60 mg Syringe SC SCH ×2 (10:00→21:36)
--- NOTE | 2016-10-11 11:27 | CP.PCM.PN ---
Subjective - Date & Time of Evaluation Date of Evaluation: 10/11/16 Time of Evaluation: 11:24 - Subjective Subjective: CC: abdominal pain C/O epigastric and LUQ dull pain and nausea, ate eggs and oatmeal for breakfast. Pain does not radiate. Had unremarkable EGD in June 2016. Gallstones visible on CT and sono, and CBD reported to be prominent at 1 cm diameter on most recent sonogram. Anxious. Objective - Vital Signs/Intake and Output Vital Signs (last 24 hours): Temp Pulse Resp BP Pulse Ox 98.3 F 76 20 120/78 100 10/11/16 07:52 10/11/16 07:52 10/11/16 07:52 10/11/16 09:59 10/11/16 07:52 Intake and Output: 10/11/16 10/11/16 06:59 18:59 Intake Total 250 Output Total 1200 Balance -950 - Medications Medications: Current Medications Docusate Sodium (Colace) 100 mg PO BID [facility] Last Admin: 10/11/16 09:59 Dose: 100 mg Enalapril Maleate (Vasotec) 5 mg PO DAILY [facility] Last Admin: 10/11/16 09:59 Dose: 5 mg Enoxaparin Sodium (Lovenox) 60 mg SC Q12 [facility] Last Admin: 10/11/16 10:00 Dose: 60 mg Ciprofloxacin (Cipro 400mg/200ml Dsw) 400 mg in 200 mls @ 133 mls/hr IVPB Q12H [facility] Last Admin: 10/11/16 04:15 Dose: 133 mls/hr Metronidazole (Flagyl) 500 mg in 100 mls @ 100 mls/hr IVPB Q8H [facility] Last Admin: 10/11/16 03:02 Dose: 100 mls/hr Levetiracetam (Keppra) 750 mg PO BID [facility] Last Admin: 10/11/16 09:59 Dose: 750 mg Lorazepam (Ativan) 1 mg PO TID [facility] Last Admin: 10/11/16 09:48 Dose: 1 mg Metoprolol Tartrate (Lopressor) 50 mg PO Q12 [facility] Last Admin: 10/11/16 10:05 Dose: 50 mg Olanzapine (Zyprexa) 20 mg PO HS [facility] Last Admin: 10/10/16 21:16 Dose: 20 mg Pantoprazole Sodium (Protonix Ec Tab) 40 mg PO DAILY [facility] Last Admin: 10/11/16 09:59 Dose: 40 mg Zolpidem Tartrate (Ambien) 5 mg PO HS [facility] Last Admin: 10/10/16 21:20 Dose: 5 mg - Labs Labs: 10/11/16 06:19 10/10/16 06:23 PT 13.1 SECONDS (9.7-12.2) H 10/09/16 08:59 INR 1.2 10/09/16 08:59 APTT 33 SECONDS (21-34) 10/09/16 08:59 - Constitutional Appears: No Acute Distress - Head Exam Head Exam: NORMOCEPHALIC - Eye Exam Eye Exam: absent: Scleral icterus - Neck Exam Neck Exam: Normal Inspection - Respiratory Exam Respiratory Exam: Clear to Ausculation Bilateral - Cardiovascular Exam Cardiovascular Exam: REGULAR RHYTHM - GI/Abdominal Exam GI & Abdominal Exam: Soft, Tenderness (Epigastric and LUQ), Normal Bowel Sounds. absent: Firm, Guarding, Mass, Organomegaly, Rebound - Extremities Exam Additional comments: pill rolling bilat hand tremors - Neurological Exam Neurological Exam: Alert, Awake, Normal Gait, Oriented x3 - Psychiatric Exam Psychiatric exam: Anxious - Skin Skin Exam: Normal Color Assessment and Plan (1) Epigastric abdominal pain Assessment & Plan: Normal labwork. Difficult to sort out due to psychiatric issues. + Gallstones, though no radiographic or lab evidence of cholecystitis.. + CBD dilation. EGD 3 months ago essentially unremarkable. Rec: Bentyl for pain. MRCP. Consider Surgery consult for cholecystectomy. Status: Acute (2) Cholelithiasis Assessment & Plan: Gallbladder stones present, however symptoms are not typical of biliary pain. Abdominal pain presently unexplained. Perhaps functional? Workup in progress. Consider surgical consultation. Status: Acute
--- NOTE | 2016-10-11 14:02 | CP.PCM.PN ---
Subjective - Date & Time of Evaluation Date of Evaluation: 10/11/16 Time of Evaluation: 13:58 - Subjective Subjective: Patient seen in his room. Still very anxious, somatic, unable to eat his lunch and complaining of abdominal pain. Patient is on Ativan, Zyprexa and Ambien. Patient was seen by GI and advised to have more diagnostic work-up but refusing. Patient has hx of seizures and has been on Keppra but patient seems to have more psych issues since on Keppra. Will discuss with Dr. Licona if patient can be weaned off Keppra and patient is on 3 mg of Ativan. Mood is still somatic and depressed but no si or hi. No psychosis. Objective - Vital Signs/Intake and Output Vital Signs (last 24 hours): Temp Pulse Resp BP Pulse Ox 98.3 F 76 20 120/78 100 10/11/16 07:52 10/11/16 07:52 10/11/16 07:52 10/11/16 09:59 10/11/16 07:52 Intake and Output: 10/11/16 10/11/16 06:59 18:59 Intake Total 250 Output Total 1200 Balance -950 - Medications Medications: Current Medications Dicyclomine HCl (Bentyl) 10 mg PO QID [facility] Last Admin: 10/11/16 13:48 Dose: 10 mg Docusate Sodium (Colace) 100 mg PO BID [facility] Last Admin: 10/11/16 09:59 Dose: 100 mg Enalapril Maleate (Vasotec) 5 mg PO DAILY [facility] Last Admin: 10/11/16 09:59 Dose: 5 mg Enoxaparin Sodium (Lovenox) 60 mg SC Q12 [facility] Last Admin: 10/11/16 10:00 Dose: 60 mg Ciprofloxacin (Cipro 400mg/200ml Dsw) 400 mg in 200 mls @ 133 mls/hr IVPB Q12H [facility] Last Admin: 10/11/16 04:15 Dose: 133 mls/hr Metronidazole (Flagyl) 500 mg in 100 mls @ 100 mls/hr IVPB Q8H [facility] Last Admin: 10/11/16 13:49 Dose: 100 mls/hr Levetiracetam (Keppra) 750 mg PO BID [facility] Last Admin: 10/11/16 09:59 Dose: 750 mg Lorazepam (Ativan) 1 mg PO TID [facility] Last Admin: 10/11/16 13:48 Dose: 1 mg Metoprolol Tartrate (Lopressor) 50 mg PO Q12 [facility] Last Admin: 10/11/16 10:05 Dose: 50 mg Olanzapine (Zyprexa) 20 mg PO HS [facility] Last Admin: 10/10/16 21:16 Dose: 20 mg Pantoprazole Sodium (Protonix Ec Tab) 40 mg PO DAILY [facility] Last Admin: 10/11/16 09:59 Dose: 40 mg Zolpidem Tartrate (Ambien) 5 mg PO HS [facility] Last Admin: 10/10/16 21:20 Dose: 5 mg - Labs Labs: 10/11/16 06:19 10/10/16 06:23 PT 13.1 SECONDS (9.7-12.2) H 10/09/16 08:59 INR 1.2 10/09/16 08:59 APTT 33 SECONDS (21-34) 10/09/16 08:59 - Constitutional Appears: No Acute Distress, Cachectic, Chronically Ill - Head Exam Head Exam: ATRAUMATIC - Eye Exam Additional comments: no blurring of vision - Neck Exam Neck Exam: Full ROM (no dyspnea) - Respiratory Exam Additional comments: no dyspnea, no chest pain - GI/Abdominal Exam Additional comments: has poor appetite, no nausea , has intermittent abdominal pain. - Exam Additional comments: no dysuria - Neurological Exam Neurological Exam: Alert, Awake, Oriented x3 - Psychiatric Exam Psychiatric exam: Anxious, Depressed Additional comments: no si or hi. No psychosis Assessment and Plan - Assessment and Plan (Free Text) Assessment: Schizoaffective disorder- bipolar type Colitis, DM, Anorexia, Failure to thrive Plan: Continue present meds as ordered. Will try to discuss with if pt can be weaned off Keppra and pt is on standing 3 mg of Ativan for anxiety.
--- NOTE | 2016-10-12 01:31 | CP.PCM.PN ---
Subjective - Date & Time of Evaluation Date of Evaluation: 10/11/16 Time of Evaluation: 17:00 Objective - Vital Signs/Intake and Output Vital Signs (last 24 hours): Temp Pulse Resp BP Pulse Ox 97.6 F 69 20 120/78 98 10/11/16 15:00 10/11/16 15:00 10/11/16 15:00 10/11/16 15:17 10/11/16 15:00 Intake and Output: 10/11/16 10/12/16 18:59 06:59 Intake Total 600 300 Output Total 800 Balance -200 300 - Medications Medications: Current Medications Dicyclomine HCl (Bentyl) 10 mg PO QID [facility] Last Admin: 10/11/16 21:38 Dose: 10 mg Docusate Sodium (Colace) 100 mg PO BID [facility] Last Admin: 10/11/16 17:21 Dose: 100 mg Enalapril Maleate (Vasotec) 5 mg PO DAILY [facility] Last Admin: 10/11/16 09:59 Dose: 5 mg Enoxaparin Sodium (Lovenox) 60 mg SC Q12 [facility] Last Admin: 10/11/16 21:36 Dose: 60 mg Ciprofloxacin (Cipro 400mg/200ml Dsw) 400 mg in 200 mls @ 133 mls/hr IVPB Q12H [facility] Last Admin: 10/11/16 16:01 Dose: 133 mls/hr Metronidazole (Flagyl) 500 mg in 100 mls @ 100 mls/hr IVPB Q8H [facility] Last Admin: 10/11/16 21:00 Dose: 100 mls/hr Levetiracetam (Keppra) 750 mg PO BID [facility] Last Admin: 10/11/16 17:21 Dose: 750 mg Lorazepam (Ativan) 1 mg PO TID [facility] Last Admin: 10/11/16 17:23 Dose: 1 mg Metoprolol Tartrate (Lopressor) 50 mg PO Q12 [facility] Last Admin: 10/11/16 10:05 Dose: 50 mg Olanzapine (Zyprexa) 20 mg PO HS [facility] Last Admin: 10/11/16 21:36 Dose: 20 mg Pantoprazole Sodium (Protonix Ec Tab) 40 mg PO DAILY [facility] Last Admin: 10/11/16 09:59 Dose: 40 mg Zolpidem Tartrate (Ambien) 5 mg PO HS [facility] Last Admin: 10/11/16 21:36 Dose: 5 mg - Labs Labs: 10/11/16 06:19 10/10/16 06:23 PT 13.1 SECONDS (9.7-12.2) H 10/09/16 08:59 INR 1.2 10/09/16 08:59 APTT 33 SECONDS (21-34) 10/09/16 08:59
--- NOTE | 2016-10-12 01:31 | CP.PCM.PN ---
Subjective - Date & Time of Evaluation Date of Evaluation: 10/12/16 Time of Evaluation: 01:31 Objective - Vital Signs/Intake and Output Vital Signs (last 24 hours): Temp Pulse Resp BP Pulse Ox 97.6 F 69 20 120/78 98 10/11/16 15:00 10/11/16 15:00 10/11/16 15:00 10/11/16 15:17 10/11/16 15:00 Intake and Output: 10/11/16 10/12/16 18:59 06:59 Intake Total 600 300 Output Total 800 Balance -200 300 - Medications Medications: Current Medications Dicyclomine HCl (Bentyl) 10 mg PO QID [facility] Last Admin: 10/11/16 21:38 Dose: 10 mg Docusate Sodium (Colace) 100 mg PO BID [facility] Last Admin: 10/11/16 17:21 Dose: 100 mg Enalapril Maleate (Vasotec) 5 mg PO DAILY [facility] Last Admin: 10/11/16 09:59 Dose: 5 mg Enoxaparin Sodium (Lovenox) 60 mg SC Q12 [facility] Last Admin: 10/11/16 21:36 Dose: 60 mg Ciprofloxacin (Cipro 400mg/200ml Dsw) 400 mg in 200 mls @ 133 mls/hr IVPB Q12H [facility] Last Admin: 10/11/16 16:01 Dose: 133 mls/hr Metronidazole (Flagyl) 500 mg in 100 mls @ 100 mls/hr IVPB Q8H [facility] Last Admin: 10/11/16 21:00 Dose: 100 mls/hr Levetiracetam (Keppra) 750 mg PO BID [facility] Last Admin: 10/11/16 17:21 Dose: 750 mg Lorazepam (Ativan) 1 mg PO TID [facility] Last Admin: 10/11/16 17:23 Dose: 1 mg Metoprolol Tartrate (Lopressor) 50 mg PO Q12 [facility] Last Admin: 10/11/16 10:05 Dose: 50 mg Olanzapine (Zyprexa) 20 mg PO HS [facility] Last Admin: 10/11/16 21:36 Dose: 20 mg Pantoprazole Sodium (Protonix Ec Tab) 40 mg PO DAILY [facility] Last Admin: 10/11/16 09:59 Dose: 40 mg Zolpidem Tartrate (Ambien) 5 mg PO HS [facility] Last Admin: 10/11/16 21:36 Dose: 5 mg - Labs Labs: 10/11/16 06:19 10/10/16 06:23 PT 13.1 SECONDS (9.7-12.2) H 10/09/16 08:59 INR 1.2 10/09/16 08:59 APTT 33 SECONDS (21-34) 10/09/16 08:59
[2016-10-12] MEDS: metroNIDAZOLE IV 500 mg/100 ml 500 MG/100 ML BAG IVPB SCH ×3 (03:10→21:41)
[2016-10-12] MEDS: Ciprofloxacin 400mg/200ml D5W 400 MG/200 ML BAG IVPB SCH ×2 (04:20→16:22)
[2016-10-12] MEDS: Enoxaparin 60 mg Syringe SC SCH ×2 (10:25→21:49)
[2016-10-12] MEDS: Pantoprazole 40 mg EC Tab PO SCH (10:26)
--- NOTE | 2016-10-12 12:04 | CP.PCM.PN ---
Subjective - Date & Time of Evaluation Date of Evaluation: 10/12/16 Time of Evaluation: 11:50 - Subjective Subjective: F/U abdom pain. Reports less abdom pain Denies RB, constip, diarrhea, DIAS, cough, hematuria, hemoptysis, SZ, SOB Objective - Vital Signs/Intake and Output Vital Signs (last 24 hours): Temp Pulse Resp BP Pulse Ox 97.6 F 90 20 126/73 99 10/12/16 08:49 10/12/16 08:49 10/12/16 08:49 10/12/16 10:26 10/12/16 08:49 Intake and Output: 10/12/16 10/12/16 06:59 18:59 Intake Total 600 Output Total 700 Balance -100 - Medications Medications: Current Medications Dicyclomine HCl (Bentyl) 10 mg PO QID [facility] Last Admin: 10/12/16 10:27 Dose: 10 mg Docusate Sodium (Colace) 100 mg PO BID [facility] Last Admin: 10/12/16 10:26 Dose: 100 mg Enalapril Maleate (Vasotec) 5 mg PO DAILY [facility] Last Admin: 10/12/16 10:26 Dose: 5 mg Enoxaparin Sodium (Lovenox) 60 mg SC Q12 [facility] Last Admin: 10/12/16 10:25 Dose: 60 mg Ciprofloxacin (Cipro 400mg/200ml Dsw) 400 mg in 200 mls @ 133 mls/hr IVPB Q12H [facility] Last Admin: 10/12/16 04:20 Dose: 133 mls/hr Metronidazole (Flagyl) 500 mg in 100 mls @ 100 mls/hr IVPB Q8H [facility] Last Admin: 10/12/16 12:01 Dose: 100 mls/hr Levetiracetam (Keppra) 750 mg PO BID [facility] Last Admin: 10/12/16 10:26 Dose: 750 mg Lorazepam (Ativan) 1 mg PO TID [facility] Last Admin: 10/12/16 10:26 Dose: 1 mg Metoprolol Tartrate (Lopressor) 50 mg PO Q12 [facility] Last Admin: 10/12/16 10:26 Dose: 50 mg Olanzapine (Zyprexa) 20 mg PO HS [facility] Last Admin: 10/11/16 21:36 Dose: 20 mg Pantoprazole Sodium (Protonix Ec Tab) 40 mg PO DAILY [facility] Last Admin: 10/12/16 10:26 Dose: 40 mg Zolpidem Tartrate (Ambien) 5 mg PO HS [facility] Last Admin: 10/11/16 21:36 Dose: 5 mg - Labs Labs: 10/11/16 06:19 10/10/16 06:23 PT 13.1 SECONDS (9.7-12.2) H 10/09/16 08:59 INR 1.2 10/09/16 08:59 APTT 33 SECONDS (21-34) 10/09/16 08:59 - Constitutional Appears: Non-toxic - Neck Exam Neck Exam: absent: Tenderness - Respiratory Exam Respiratory Exam: Clear to Ausculation Bilateral - Cardiovascular Exam Cardiovascular Exam: RRR - GI/Abdominal Exam GI & Abdominal Exam: Soft, Normal Bowel Sounds. absent: Guarding, Tenderness, Mass - Extremities Exam Extremities Exam: absent: Calf Tenderness - Neurological Exam Neurological Exam: Alert, Awake Assessment and Plan (1) Colitis Assessment & Plan: Right colitis on CT. Had recent colonosocpy 06/30 with NO colitis. Status: Acute (2) Deep vein thrombosis (DVT) of right lower extremity Status: Acute (3) Anxiety Status: Acute (4) Colon polyps Status: Acute (5) DMII (diabetes mellitus, type 2) Status: Acute (6) Hx pulmonary embolism Status: Acute (7) Weight loss Assessment & Plan: Check P.o. intake and weights. Status: Acute (8) Epigastric abdominal pain Assessment & Plan: Improving. Consider gastritis. I doubt GB disease or biliary pain. Status: Acute (9) Cholelithiasis Assessment & Plan: I doubt cholecystitis. Has CBD dil 1 cm. Pt could not tolerate MRCP. LFTs are normal- no biliary obstruction. Status: Acute (10) Fatty liver Status: Acute (11) Schizophrenia Status: Acute
--- NOTE | 2016-10-12 19:09 | CP.PCM.PN ---
Subjective - Date & Time of Evaluation Date of Evaluation: 10/12/16 Time of Evaluation: 19:04 - Subjective Subjective: Patient still very anxious, afraid to eat and unable to complete test. Patient' s case with Dr. Yañez , neurologist and plan to wean off pt from Keppra after 4 days and start pt with Dilantin. Still very somatic. No si or hi. No psychosis MSE- frail looking male, seen with . Oriented x 3. Speech is spontaneous. Affect is reactive.Mood is anxious. Thought process- coherent Thought content- no si or hi. No psychosis. Attention and memory fair. Insight and Judgment fair. Impulse control fair. Temp Pulse Resp BP Pulse Ox 97.6 F 90 20 126/73 99 10/12/16 08:49 10/12/16 08:49 10/12/16 08:49 10/12/16 10:26 10/12/16 08:49 Objective - Vital Signs/Intake and Output Vital Signs (last 24 hours): Temp Pulse Resp BP Pulse Ox 97.6 F 90 20 126/73 99 10/12/16 08:49 10/12/16 08:49 10/12/16 08:49 10/12/16 10:26 10/12/16 08:49 Intake and Output: 10/12/16 10/13/16 18:59 06:59 Intake Total 150 Balance 150 - Medications Medications: Current Medications Dicyclomine HCl (Bentyl) 10 mg PO QID [facility] Last Admin: 10/12/16 17:39 Dose: 10 mg Docusate Sodium (Colace) 100 mg PO BID [facility] Last Admin: 10/12/16 17:39 Dose: 100 mg Enalapril Maleate (Vasotec) 5 mg PO DAILY [facility] Last Admin: 10/12/16 10:26 Dose: 5 mg Enoxaparin Sodium (Lovenox) 60 mg SC Q12 [facility] Last Admin: 10/12/16 10:25 Dose: 60 mg Metronidazole (Flagyl) 500 mg in 100 mls @ 100 mls/hr IVPB Q8H [facility] Last Admin: 10/12/16 12:01 Dose: 100 mls/hr Levetiracetam (Keppra) 750 mg PO BID [facility] Last Admin: 10/12/16 17:40 Dose: 750 mg Lorazepam (Ativan) 1 mg PO TID [facility] Last Admin: 10/12/16 17:40 Dose: 1 mg Metoprolol Tartrate (Lopressor) 50 mg PO Q12 [facility] Last Admin: 10/12/16 10:26 Dose: 50 mg Olanzapine (Zyprexa) 20 mg PO HS [facility] Last Admin: 10/11/16 21:36 Dose: 20 mg Pantoprazole Sodium (Protonix Ec Tab) 40 mg PO DAILY [facility] Last Admin: 10/12/16 10:26 Dose: 40 mg Phenytoin (Dilantin) 100 mg PO TID [facility] Zolpidem Tartrate (Ambien) 5 mg PO HS [facility] Last Admin: 10/11/16 21:36 Dose: 5 mg - Labs Labs: 10/11/16 06:19 10/10/16 06:23 PT 13.1 SECONDS (9.7-12.2) H 10/09/16 08:59 INR 1.2 10/09/16 08:59 APTT 33 SECONDS (21-34) 10/09/16 08:59 - Constitutional Appears: Cachectic - Head Exam Head Exam: ATRAUMATIC - Eye Exam Additional comments: no blurring of vision - ENT Exam Additional comments: no earache - Neck Exam Neck Exam: Full ROM - Respiratory Exam Respiratory Exam: NORMAL BREATHING PATTERN - Cardiovascular Exam Additional comments: no palpitations - GI/Abdominal Exam Additional comments: no appetite, no nausea and vomiting - Exam Additional comments: gait is unsteady - Back Exam Additional comments: no back pain - Neurological Exam Neurological Exam: Awake, Oriented x3 Assessment and Plan - Assessment and Plan (Free Text) Assessment: Schizoaffective disorder- bipolar type DM, Seizures Plan: Continue present plan. Neuro eval with Dr. Yañez. Continue present meds. Will slowly take hi off Keppra and switch to Dilantin.
[2016-10-13] MEDS: metroNIDAZOLE IV 500 mg/100 ml 500 MG/100 ML BAG IVPB SCH ×3 (04:45→21:19)
[2016-10-13] MEDS: Pantoprazole 40 mg EC Tab PO SCH (10:07)
[2016-10-13] MEDS: Phenytoin 100 mg/4 ml Oral Susp UD PO SCH ×3 (10:08→17:35)
[2016-10-13] MEDS: Enoxaparin 60 mg Syringe SC SCH ×2 (10:08→21:20)
--- NOTE | 2016-10-13 15:31 | CP.PCM.PN ---
Subjective - Date & Time of Evaluation Date of Evaluation: 10/13/16 Time of Evaluation: 15:28 - Subjective Subjective: CC: follow up abdominal pain Could not do MRCP, even with Ativan No abdominal pain or change in bowel habits Objective - Vital Signs/Intake and Output Vital Signs (last 24 hours): Temp Pulse Resp BP Pulse Ox 98.4 F 78 20 129/80 98 10/13/16 07:53 10/13/16 07:53 10/13/16 07:53 10/13/16 10:07 10/13/16 07:53 Intake and Output: 10/13/16 10/13/16 06:59 18:59 Intake Total 400 550 Balance 400 550 - Medications Medications: Current Medications Dicyclomine HCl (Bentyl) 10 mg PO QID [facility] Last Admin: 10/13/16 13:04 Dose: 10 mg Docusate Sodium (Colace) 100 mg PO BID [facility] Last Admin: 10/13/16 10:06 Dose: 100 mg Enalapril Maleate (Vasotec) 5 mg PO DAILY [facility] Last Admin: 10/13/16 10:07 Dose: 5 mg Enoxaparin Sodium (Lovenox) 60 mg SC Q12 [facility] Last Admin: 10/13/16 10:08 Dose: 60 mg Metronidazole (Flagyl) 500 mg in 100 mls @ 100 mls/hr IVPB Q8H [facility] Last Admin: 10/13/16 11:14 Dose: 100 mls/hr Levetiracetam (Keppra) 750 mg PO BID [facility] Last Admin: 10/13/16 10:07 Dose: 750 mg Lorazepam (Ativan) 1 mg PO TID [facility] Last Admin: 10/13/16 13:04 Dose: 1 mg Lorazepam (Ativan) 0.5 mg PO ONCE PRN PRN Reason: Anxiety Stop: 10/14/16 08:51 Metoprolol Tartrate (Lopressor) 50 mg PO Q12 [facility] Last Admin: 10/13/16 10:06 Dose: 50 mg Olanzapine (Zyprexa) 20 mg PO HS [facility] Pantoprazole Sodium (Protonix Ec Tab) 40 mg PO DAILY [facility] Last Admin: 10/13/16 10:07 Dose: 40 mg Phenytoin (Dilantin) 100 mg PO TID [facility] Last Admin: 10/13/16 13:04 Dose: 100 mg Zolpidem Tartrate (Ambien) 5 mg PO HS [facility] Last Admin: 10/12/16 21:43 Dose: 5 mg - Labs Labs: 10/11/16 06:19 10/10/16 06:23 PT 13.1 SECONDS (9.7-12.2) H 10/09/16 08:59 INR 1.2 10/09/16 08:59 APTT 33 SECONDS (21-34) 10/09/16 08:59 - Constitutional Appears: No Acute Distress - Head Exam Head Exam: NORMOCEPHALIC - Eye Exam Eye Exam: absent: Scleral icterus - Respiratory Exam Respiratory Exam: NORMAL BREATHING PATTERN - Cardiovascular Exam Cardiovascular Exam: REGULAR RHYTHM - GI/Abdominal Exam GI & Abdominal Exam: Soft. absent: Tenderness, Mass Assessment and Plan (1) Epigastric abdominal pain Assessment & Plan: Functional pain Patient reassured No further GI plans Status: Acute (2) Cholelithiasis Assessment & Plan: Stable asymptomatic gallstones. CBD prominent on sonogram, but LFTs normal. MRI not able to be done. Would not pursue any further- no mass/obstructing lesion on CT. Please re-consult as needed Status: Acute
--- NOTE | 2016-10-13 15:34 | CP.PCM.PN ---
Subjective - Date & Time of Evaluation Date of Evaluation: 10/13/16 Time of Evaluation: 15:42 - Subjective Subjective: Patient seen with . Patient unable to undergo MRCP as he is very anxious and still not eating well. Patient is trying to eat food brought by his . Still feeling very weak and afraid to eat. No si or hi. Patient if he needs to undergo diagnostic test, may need premed with Ativan 2-3mg IV to sedate him as he has very high free floating anxiety level despite multiple psych meds. MSE- frail looking male, seen with , alert and oriented x 3. Speech is spontaneous. Mood is very anxious. Affect is reactive. Thought process- coherent - Thought content- no si or hi. No psychosis. Attention and Memory fair. Insight and Judgment fair. Impulse control fair. Objective - Vital Signs/Intake and Output Vital Signs (last 24 hours): Temp Pulse Resp BP Pulse Ox 98.4 F 78 20 129/80 98 10/13/16 07:53 10/13/16 07:53 10/13/16 07:53 10/13/16 10:07 10/13/16 07:53 Intake and Output: 10/13/16 10/13/16 06:59 18:59 Intake Total 400 550 Balance 400 550 - Medications Medications: Current Medications Dicyclomine HCl (Bentyl) 10 mg PO QID [facility] Last Admin: 10/13/16 13:04 Dose: 10 mg Docusate Sodium (Colace) 100 mg PO BID [facility] Last Admin: 10/13/16 10:06 Dose: 100 mg Enalapril Maleate (Vasotec) 5 mg PO DAILY [facility] Last Admin: 10/13/16 10:07 Dose: 5 mg Enoxaparin Sodium (Lovenox) 60 mg SC Q12 [facility] Last Admin: 10/13/16 10:08 Dose: 60 mg Metronidazole (Flagyl) 500 mg in 100 mls @ 100 mls/hr IVPB Q8H [facility] Last Admin: 10/13/16 11:14 Dose: 100 mls/hr Levetiracetam (Keppra) 750 mg PO BID [facility] Last Admin: 10/13/16 10:07 Dose: 750 mg Lorazepam (Ativan) 1 mg PO TID [facility] Last Admin: 10/13/16 13:04 Dose: 1 mg Lorazepam (Ativan) 0.5 mg PO ONCE PRN PRN Reason: Anxiety Stop: 10/14/16 08:51 Metoprolol Tartrate (Lopressor) 50 mg PO Q12 [facility] Last Admin: 10/13/16 10:06 Dose: 50 mg Olanzapine (Zyprexa) 20 mg PO HS [facility] Pantoprazole Sodium (Protonix Ec Tab) 40 mg PO DAILY [facility] Last Admin: 10/13/16 10:07 Dose: 40 mg Phenytoin (Dilantin) 100 mg PO TID [facility] Last Admin: 10/13/16 13:04 Dose: 100 mg Zolpidem Tartrate (Ambien) 5 mg PO HS [facility] Last Admin: 10/12/16 21:43 Dose: 5 mg - Labs Labs: 10/11/16 06:19 10/10/16 06:23 PT 13.1 SECONDS (9.7-12.2) H 10/09/16 08:59 INR 1.2 10/09/16 08:59 APTT 33 SECONDS (21-34) 10/09/16 08:59 - Constitutional Appears: Cachectic, Chronically Ill - Head Exam Head Exam: NORMOCEPHALIC - Eye Exam Eye Exam: Normal appearance - ENT Exam ENT Exam: Normal Exam - Neck Exam Neck Exam: Full ROM - Respiratory Exam Additional comments: no dyspnea - Cardiovascular Exam Additional comments: no palpitations, no chest pain. - GI/Abdominal Exam Additional comments: still has off and on abdominal pain, no nausea or vomiting, has very poor appetite. - Exam Additional comments: no dysuria - Extremities Exam Additional comments: gait is unsteady, no tremors - Neurological Exam Neurological Exam: Abnormal Gait, Oriented x3 - Psychiatric Exam Psychiatric exam: Anxious, Depressed - Skin Additional comments: no diaphoresis Assessment and Plan - Assessment and Plan (Free Text) Assessment: Schizoaffective disorder- bipolar type Colitis DM Seizures Plan: Continue present plan and tx plan. Patient is being switched to Dilantin from Keppra as Keppra can exacerbate his psych symptoms. Continue present psych meds. As per Dr. Yañez, Keppra can be discontinued on 2016.as pt is now on Dilantin.
[2016-10-14] MEDS: metroNIDAZOLE IV 500 mg/100 ml 500 MG/100 ML BAG IVPB SCH ×2 (04:45→13:00)
[2016-10-14] MEDS: Enoxaparin 60 mg Syringe SC SCH ×2 (10:14→22:15)
[2016-10-14] MEDS: Pantoprazole 40 mg EC Tab PO SCH (10:16)
[2016-10-14] MEDS: Phenytoin 100 mg/4 ml Oral Susp UD PO SCH ×2 (10:17→14:09)
[2016-10-15] MEDS: metroNIDAZOLE IV 500 mg/100 ml 500 MG/100 ML BAG IVPB SCH ×2 (04:09→22:00)
[2016-10-15] MEDS: Pantoprazole 40 mg EC Tab PO SCH (09:06)
[2016-10-15] MEDS: Phenytoin 100 mg/4 ml Oral Susp UD PO SCH (09:06)
[2016-10-15] MEDS: Enoxaparin 60 mg Syringe SC SCH ×2 (09:07→22:00)
--- NOTE | 2016-10-15 12:58 | CP.PCM.PN ---
Subjective - Date & Time of Evaluation Date of Evaluation: 10/15/16 Time of Evaluation: 12:56 - Subjective Subjective: Patient still very anxious, somatic and not eating well despite meds. Feels very fidgety and reluctant to take po Dilantin. Objective - Vital Signs/Intake and Output Vital Signs (last 24 hours): Temp Pulse Resp BP Pulse Ox 98.5 F 73 20 135/77 96 10/15/16 08:47 10/15/16 08:47 10/15/16 08:47 10/15/16 09:06 10/15/16 08:47 Intake and Output: 10/15/16 10/15/16 06:59 18:59 Intake Total 220 Balance 220 - Medications Medications: Current Medications Dicyclomine HCl (Bentyl) 10 mg PO QID [facility] Last Admin: 10/15/16 09:06 Dose: 10 mg Docusate Sodium (Colace) 100 mg PO BID [facility] Last Admin: 10/15/16 09:06 Dose: 100 mg Enalapril Maleate (Vasotec) 5 mg PO DAILY [facility] Last Admin: 10/15/16 09:06 Dose: 5 mg Enoxaparin Sodium (Lovenox) 60 mg SC Q12 [facility] Last Admin: 10/15/16 09:07 Dose: 60 mg Levetiracetam (Keppra) 750 mg PO BID [facility] Last Admin: 10/15/16 09:06 Dose: 750 mg Lorazepam (Ativan) 2 mg PO TID [facility] Metoprolol Tartrate (Lopressor) 50 mg PO Q12 [facility] Last Admin: 10/15/16 09:07 Dose: 50 mg Olanzapine (Zyprexa) 20 mg PO [facility] Last Admin: 10/14/16 22:16 Dose: 20 mg Pantoprazole Sodium (Protonix Ec Tab) 40 mg PO DAILY [facility] Last Admin: 10/15/16 09:06 Dose: 40 mg Phenytoin Sodium (Dilantin) 100 mg PO TID [facility] Zolpidem Tartrate (Ambien) 5 mg PO HS [facility] Last Admin: 10/14/16 22:14 Dose: 5 mg - Labs Labs: 10/11/16 06:19 10/10/16 06:23 PT 13.1 SECONDS (9.7-12.2) H 10/09/16 08:59 INR 1.2 10/09/16 08:59 APTT 33 SECONDS (21-34) 10/09/16 08:59 - Constitutional Appears: No Acute Distress, Cachectic, Chronically Ill - Head Exam Head Exam: NORMOCEPHALIC - Eye Exam Eye Exam: Normal appearance - ENT Exam ENT Exam: Normal External Ear Exam - Neck Exam Neck Exam: Full ROM - Respiratory Exam Respiratory Exam: NORMAL BREATHING PATTERN - Cardiovascular Exam Additional comments: no chest pain - GI/Abdominal Exam Additional comments: has mild abdominal pain, phillips spoor appetite - Exam Additional comments: no dysuria - Extremities Exam Additional comments: gait is unsteady - Back Exam Additional comments: no back pain - Neurological Exam Neurological Exam: Alert, Awake, Oriented x3 - Psychiatric Exam Psychiatric exam: Anxious, Depressed - Skin Skin Exam: Dry, Intact, Normal Color, Warm Assessment and Plan - Assessment and Plan (Free Text) Assessment: Schizoaffective disorder- bipolar type Colitis, Seizures, DM Plan: Will increase dose of Ativan to 2 mg po tid. Will stop Keppra in am. Continue all other meds. GI follow-up.
--- NOTE | 2016-10-15 23:26 | CP.PCM.PN ---
Subjective - Date & Time of Evaluation Date of Evaluation: 10/15/16 Time of Evaluation: 23:26 Objective - Vital Signs/Intake and Output Vital Signs (last 24 hours): Temp Pulse Resp BP Pulse Ox 98.1 F 83 20 155/84 H 96 10/15/16 15:00 10/15/16 15:00 10/15/16 15:00 10/15/16 15:00 10/15/16 15:00 Intake and Output: 10/15/16 10/16/16 18:59 06:59 Intake Total 350 580 Balance 350 580 - Medications Medications: Current Medications Dicyclomine HCl (Bentyl) 10 mg PO QID [facility] Last Admin: 10/15/16 22:00 Dose: 10 mg Docusate Sodium (Colace) 100 mg PO BID [facility] Last Admin: 10/15/16 17:34 Dose: 100 mg Enalapril Maleate (Vasotec) 5 mg PO DAILY [facility] Last Admin: 10/15/16 09:06 Dose: 5 mg Enoxaparin Sodium (Lovenox) 60 mg SC Q12 [facility] Last Admin: 10/15/16 22:00 Dose: 60 mg Metronidazole (Flagyl) 500 mg in 100 mls @ 100 mls/hr IVPB Q8H [facility] Last Admin: 10/15/16 22:00 Dose: 100 mls/hr Levetiracetam (Keppra) 750 mg PO BID [facility] Last Admin: 10/15/16 17:34 Dose: 750 mg Lorazepam (Ativan) 2 mg PO TID [facility] Last Admin: 10/15/16 17:35 Dose: 2 mg Metoprolol Tartrate (Lopressor) 50 mg PO Q12 [facility] Last Admin: 10/15/16 22:00 Dose: 50 mg Olanzapine (Zyprexa) 20 mg PO HS [facility] Last Admin: 10/15/16 22:01 Dose: 20 mg Pantoprazole Sodium (Protonix Ec Tab) 40 mg PO DAILY [facility] Last Admin: 10/15/16 09:06 Dose: 40 mg Phenytoin Sodium (Dilantin) 100 mg PO TID [facility] Last Admin: 10/15/16 17:33 Dose: 100 mg Zolpidem Tartrate (Ambien) 5 mg PO HS [facility] Last Admin: 10/15/16 22:00 Dose: 5 mg - Labs Labs: 10/11/16 06:19 06/27/17 06:23 PT 13.1 SECONDS (9.7-12.2) H 10/09/16 08:59 INR 1.2 10/09/16 08:59 APTT 33 SECONDS (21-34) 10/09/16 08:59
[2016-10-16] MEDS: metroNIDAZOLE IV 500 mg/100 ml 500 MG/100 ML BAG IVPB SCH ×4 (05:47→21:40)
[2016-10-16] MEDS: Enoxaparin 60 mg Syringe SC SCH ×2 (10:00→21:40)
[2016-10-16] MEDS: Pantoprazole 40 mg EC Tab PO SCH (10:21)
--- NOTE | 2016-10-16 13:26 | CP.PCM.PN ---
Subjective - Date & Time of Evaluation Date of Evaluation: 10/16/16 Time of Evaluation: 13:22 - Subjective Subjective: Patient seen today and appears much calmer with increase of dose of Ativan to 2 mg po tid. Patient's Keppra will be stopped today as pt is on Dilantin and now on higher doses of Ativan. Sleeping better and eating better. More compliant with meds intake. No behavioral issues noted. MSE- frail looking male, alert and oriented x 3. Mood is less anxious. Affect is reactive. Speech is spontaneous. TP- coherent- TC- no si or hi. no psychosis. Patient still afraid to eat. Attention/ Memory fair. Insight/ Judgment fair. Impulse control fair. Objective - Vital Signs/Intake and Output Vital Signs (last 24 hours): Temp Pulse Resp BP Pulse Ox 98.6 F 84 20 131/84 97 10/16/16 07:48 10/16/16 07:48 10/16/16 07:48 10/16/16 10:00 10/16/16 07:48 Intake and Output: 10/16/16 10/16/16 06:59 18:59 Intake Total 800 Balance 800 - Medications Medications: Current Medications Dicyclomine HCl (Bentyl) 10 mg PO QID [facility] Last Admin: 10/16/16 13:19 Dose: 10 mg Docusate Sodium (Colace) 100 mg PO BID [facility] Last Admin: 10/16/16 09:59 Dose: 100 mg Enalapril Maleate (Vasotec) 5 mg PO DAILY [facility] Last Admin: 10/16/16 10:00 Dose: 5 mg Enoxaparin Sodium (Lovenox) 60 mg SC Q12 [facility] Last Admin: 10/16/16 10:00 Dose: 60 mg Metronidazole (Flagyl) 500 mg in 100 mls @ 100 mls/hr IVPB Q8H [facility] Last Admin: 10/16/16 05:47 Dose: 100 mls/hr Lorazepam (Ativan) 2 mg PO TID [facility] Last Admin: 10/16/16 13:19 Dose: 2 mg Metoprolol Tartrate (Lopressor) 50 mg PO Q12 [facility] Last Admin: 10/16/16 09:59 Dose: 50 mg Olanzapine (Zyprexa) 20 mg PO HS [facility] Last Admin: 10/15/16 22:01 Dose: 20 mg Pantoprazole Sodium (Protonix Ec Tab) 40 mg PO DAILY [facility] Last Admin: 10/16/16 10:21 Dose: 40 mg Phenytoin Sodium (Dilantin) 100 mg PO TID [facility] Last Admin: 10/16/16 13:19 Dose: 100 mg Zolpidem Tartrate (Ambien) 5 mg PO HS [facility] Last Admin: 10/15/16 22:00 Dose: 5 mg - Labs Labs: 10/11/16 06:19 10/10/16 06:23 PT 13.1 SECONDS (9.7-12.2) H 10/09/16 08:59 INR 1.2 10/09/16 08:59 APTT 33 SECONDS (21-34) 10/09/16 08:59 - Constitutional Appears: No Acute Distress, Cachectic, Chronically Ill - Head Exam Head Exam: NORMOCEPHALIC - Eye Exam Eye Exam: Normal appearance - ENT Exam ENT Exam: Normal Exam - Neck Exam Neck Exam: Full ROM - Respiratory Exam Respiratory Exam: NORMAL BREATHING PATTERN - Cardiovascular Exam Additional comments: no chest pain - GI/Abdominal Exam Additional comments: still has poor appetite but trying to eat regular food. No abdominal pain. - Extremities Exam Additional comments: gait is unsteady at times - Back Exam Additional comments: no back pain. - Neurological Exam Neurological Exam: Alert, Awake, Oriented x3 - Psychiatric Exam Psychiatric exam: Anxious, Depressed - Skin Skin Exam: Normal Color Assessment and Plan - Assessment and Plan (Free Text) Assessment: Schizoaffective disorder- bipolar type Colitis, DM, Seizures Plan: Continue present psych meds. Psych basilio, he is stable to go home to his , [place] once medically cleared. Follow-up in my office in 1-2 weeks.
--- NOTE | 2016-10-16 22:42 | CP.PCM.PN ---
Subjective - Date & Time of Evaluation Date of Evaluation: 10/16/16 Time of Evaluation: 22:42 - Subjective Subjective: Patient having some trouble in bathroom. Constipated. No chest pain or shortness of breath. Vital signs stable. Objective - Vital Signs/Intake and Output Vital Signs (last 24 hours): Temp Pulse Resp BP Pulse Ox 98.2 F 81 20 121/66 98 10/16/16 15:10 10/16/16 15:10 10/16/16 15:10 10/16/16 15:10 10/16/16 15:10 Intake and Output: 10/16/16 10/17/16 18:59 06:59 Intake Total 100 Balance 100 On examination: HEENT PERRLA, neck supple No thyromegaly was noted and no cervical adenopathy noted Chest bilateral good air entry, no wheezing or rales noted CVS regular heart sound, no murmur Abdomen soft and no organomegaly Extremities no pedal edema, no leg swelling, pedal pulses are good. 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 no functional neurological deficit - Medications Medications: Current Medications Dicyclomine HCl (Bentyl) 10 mg PO QID [facility] Last Admin: 10/16/16 21:39 Dose: 10 mg Docusate Sodium (Colace) 100 mg PO BID [facility] Last Admin: 10/16/16 17:19 Dose: 100 mg Enalapril Maleate (Vasotec) 5 mg PO DAILY [facility] Last Admin: 10/16/16 10:00 Dose: 5 mg Enoxaparin Sodium (Lovenox) 60 mg SC Q12 [facility] Last Admin: 10/16/16 21:40 Dose: 60 mg Metronidazole (Flagyl) 500 mg in 100 mls @ 100 mls/hr IVPB Q8H [facility] Last Admin: 10/16/16 13:42 Dose: 100 mls/hr Lorazepam (Ativan) 2 mg PO TID [facility] Last Admin: 10/16/16 17:22 Dose: 2 mg Metoprolol Tartrate (Lopressor) 50 mg PO Q12 [facility] Last Admin: 10/16/16 21:39 Dose: 50 mg Olanzapine (Zyprexa) 20 mg PO HS [facility] Last Admin: 10/16/16 21:41 Dose: 20 mg Pantoprazole Sodium (Protonix Ec Tab) 40 mg PO DAILY [facility] Last Admin: 10/16/16 10:21 Dose: 40 mg Phenytoin Sodium (Dilantin) 100 mg PO TID [facility] Last Admin: 10/16/16 17:19 Dose: 100 mg Zolpidem Tartrate (Ambien) 5 mg PO HS [facility] Last Admin: 10/16/16 21:37 Dose: 5 mg - Labs Labs: 10/11/16 06:19 10/10/16 06:23 PT 13.1 SECONDS (9.7-12.2) H 10/09/16 08:59 INR 1.2 10/09/16 08:59 APTT 33 SECONDS (21-34) 10/09/16 08:59 Assessment and Plan (1) Cholelithiasis Status: Acute (2) Colitis Assessment & Plan: patient with the colitis, on antibiotic. Deep venous thrombosis. On Lovenox. Will get a GI evaluation. will continue the current treatment Status: Acute (3) Deep vein thrombosis (DVT) of right lower extremity Status: Acute (4) Fatty liver Status: Acute (5) Schizophrenia Status: Acute
[2016-10-17] MEDS: metroNIDAZOLE IV 500 mg/100 ml 500 MG/100 ML BAG IVPB SCH ×3 (06:00→21:39)
[2016-10-17] MEDS: Pantoprazole 40 mg EC Tab PO SCH (09:51)
--- NOTE | 2016-10-17 23:18 | CP.PCM.PN ---
Subjective - Date & Time of Evaluation Date of Evaluation: 10/17/16 Time of Evaluation: 23:17 - Subjective Subjective: Patient today feeling slightly better. Patient is still continues to have episodes of constipation. Poor appetite noted, anxiety noted, not sleeping well. Denies any chest pain. No vomiting noted Vital signs reviewed No neck vein distention noted Chest good air entry bilaterally, no wheezing or rales noted CVS regular heart sound, no murmur noted Abdomen soft, nontender. 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 Depression and anxiety. Very anxious currently. Been seen by psychiatrist. History of DVT, on anticoagulation continue that. evaluation. And will follow the patient Objective - Vital Signs/Intake and Output Vital Signs (last 24 hours): Temp Pulse Resp BP Pulse Ox 98 F 78 20 100/78 98 10/17/16 15:00 10/17/16 21:43 10/17/16 15:00 10/17/16 21:43 10/17/16 21:43 Intake and Output: 10/17/16 10/18/16 18:59 06:59 Intake Total 580 500 Balance 580 500 - Medications Medications: Current Medications Dicyclomine HCl (Bentyl) 10 mg PO QID [facility] Last Admin: 10/17/16 21:38 Dose: 10 mg Docusate Sodium (Colace) 100 mg PO BID [facility] Last Admin: 10/17/16 18:15 Dose: 100 mg Enalapril Maleate (Vasotec) 5 mg PO DAILY [facility] Last Admin: 10/17/16 09:50 Dose: 5 mg Enoxaparin Sodium (Lovenox) 60 mg SC Q12 [facility] Metronidazole (Flagyl) 500 mg in 100 mls @ 100 mls/hr IVPB Q8H [facility] Last Admin: 10/17/16 21:39 Dose: 100 mls/hr Lorazepam (Ativan) 2 mg PO TID [facility] Last Admin: 10/17/16 18:14 Dose: 2 mg Metoprolol Succinate (Toprol Xl) 50 mg PO DAILY [facility] Olanzapine (Zyprexa) 20 mg PO HS [facility] Last Admin: 10/17/16 21:40 Dose: 20 mg Pantoprazole Sodium (Protonix Ec Tab) 40 mg PO DAILY [facility] Last Admin: 10/17/16 09:51 Dose: 40 mg Phenytoin Sodium (Dilantin) 100 mg PO TID [facility] Last Admin: 10/17/16 18:15 Dose: 100 mg Zolpidem Tartrate (Ambien) 5 mg PO HS [facility] Last Admin: 10/17/16 21:38 Dose: 5 mg - Labs Labs: 10/11/16 06:19 10/10/16 06:23 PT 13.1 SECONDS (9.7-12.2) H 10/09/16 08:59 INR 1.2 10/09/16 08:59 APTT 33 SECONDS (21-34) 10/09/16 08:59 Assessment and Plan (1) Cholelithiasis Status: Acute (2) Colitis Status: Acute (3) Deep vein thrombosis (DVT) of right lower extremity Status: Acute (4) Fatty liver Status: Acute (5) Schizophrenia Status: Acute
[2016-10-18] MEDS: metroNIDAZOLE IV 500 mg/100 ml 500 MG/100 ML BAG IVPB SCH ×3 (05:21→21:29)
[2016-10-18 08:50] LABS: BASO % 0.7 % (0.0-2.0); EOS # 0.1 K/uL (0.0-0.7); EOS % 1.5 % (0.0-4.0); LYMPH # 1.4 K/uL (1.0-4.3); LYMPH % 26.4 % (20.0-40.0); MEAN CELL VOLUME 89.1 fL (80.0-94.0); MEAN CORPUSCULAR HEMOGLOBIN 30.6 pg (27.0-31.0); MEAN CORPUSCULAR HGB CONC 34.4 g/dL (33.0-37.0); MEAN PLATELET VOLUME 8.3 fL (7.2-11.7); MONO # 0.5 K/uL (0.0-0.8); MONO % 10.3 % (0.0-10.0); NEUT # 3.2 K/uL (1.8-7.0); NEUT % 61.1 % (50.0-75.0); RBC 4.23 Mil/uL (4.40-5.90); RED CELL DISTRIBUTION WIDTH 13.6 % (11.5-14.5); WHITE BLOOD COUNT 5.2 K/uL (4.8-10.8)
[2016-10-18 09:11] LABS: ALBUMIN 3.4 g/dL (3.5-5.0)
[2016-10-18 09:13] LABS: GFR AFRICAN-AMERICAN > 60; GFR NON-AFRICAN AMERICAN > 60
[2016-10-18 09:14] LABS: ALT/SGPT 54 U/L (21-72); AST/SGOT 23 U/L (17-59); BLOOD UREA NITROGEN 19 mg/dL (9-20)
[2016-10-18 09:15] LABS: CALCIUM 8.7 mg/dl (8.6-10.4); MAGNESIUM 1.7 mg/dL (1.6-2.3)
[2016-10-18 09:17] LABS: ALB/GLOB RATIO 1.8 (1.0-2.1)
[2016-10-18] MEDS: Enoxaparin 60 mg Syringe SC SCH ×2 (10:05→21:30)
[2016-10-18] MEDS: Pantoprazole 40 mg EC Tab PO SCH (10:05)
[2016-10-18] MEDS: Metoprolol Succinate 50 mg XL Tab PO SCH (10:06)
--- NOTE | 2016-10-18 14:24 | CP.PCM.PN ---
Subjective - Date & Time of Evaluation Date of Evaluation: 10/18/16 Time of Evaluation: 14:21 - Subjective Subjective: Patient seen for follow-up. Patient still very anxious, somatic and wants to go home. Patient has been switched from Keppra to Dilantin. Awaiting medical clearance from Dr. Licona. MSE- frail looking male, Ox 3. in hospital gown, mood is anxious, speech is spontaneous. affect is reactive. TP- coherent TC- no si or hi. No psychosis. Attention/ Memory fair. Insight and Judgment fair. Impulse control fair. Objective - Vital Signs/Intake and Output Vital Signs (last 24 hours): Temp Pulse Resp BP Pulse Ox 98.0 F 104 H 20 146/83 96 10/18/16 08:00 10/18/16 08:00 10/18/16 08:00 10/18/16 10:06 10/18/16 08:00 Intake and Output: 10/18/16 10/18/16 06:59 18:59 Intake Total 780 960 Balance 780 960 - Medications Medications: Current Medications Dicyclomine HCl (Bentyl) 10 mg PO QID [facility] Last Admin: 10/18/16 13:51 Dose: 10 mg Docusate Sodium (Colace) 100 mg PO BID [facility] Last Admin: 10/18/16 10:05 Dose: 100 mg Enalapril Maleate (Vasotec) 5 mg PO DAILY [facility] Last Admin: 10/18/16 10:06 Dose: 5 mg Enoxaparin Sodium (Lovenox) 60 mg SC Q12 [facility] Last Admin: 10/18/16 10:05 Dose: 60 mg Metronidazole (Flagyl) 500 mg in 100 mls @ 100 mls/hr IVPB Q8H [facility] Last Admin: 10/18/16 13:50 Dose: 100 mls/hr Lorazepam (Ativan) 2 mg PO TID [facility] Last Admin: 10/18/16 13:51 Dose: 2 mg Metoprolol Succinate (Toprol Xl) 50 mg PO DAILY [facility] Last Admin: 10/18/16 10:06 Dose: 50 mg Olanzapine (Zyprexa) 20 mg PO HS [facility] Last Admin: 10/17/16 21:40 Dose: 20 mg Pantoprazole Sodium (Protonix Ec Tab) 40 mg PO DAILY [facility] Last Admin: 10/18/16 10:05 Dose: 40 mg Phenytoin Sodium (Dilantin) 100 mg PO TID [facility] Last Admin: 10/18/16 13:51 Dose: 100 mg Zolpidem Tartrate (Ambien) 5 mg PO HS [facility] Last Admin: 10/17/16 21:38 Dose: 5 mg - Labs Labs: 10/18/16 08:46 10/18/16 08:46 PT 13.1 SECONDS (9.7-12.2) H 10/09/16 08:59 INR 1.2 10/09/16 08:59 APTT 33 SECONDS (21-34) 10/09/16 08:59 - Constitutional Appears: No Acute Distress, Cachectic, Chronically Ill - Head Exam Head Exam: NORMOCEPHALIC - Eye Exam Eye Exam: Normal appearance Pupil Exam: NORMAL ACCOMODATION - ENT Exam ENT Exam: Normal Exam - Neck Exam Neck Exam: Full ROM - Respiratory Exam Respiratory Exam: NORMAL BREATHING PATTERN - Cardiovascular Exam Additional comments: no chest pain - GI/Abdominal Exam Additional comments: appetite is still poor, no abdominal pain, no nausea or vomiting - Exam Additional comments: no dysuria - Extremities Exam Additional comments: gait is unsteady - Neurological Exam Neurological Exam: Alert, Awake, Oriented x3 - Psychiatric Exam Psychiatric exam: Anxious, Depressed - Skin Skin Exam: Normal Color Assessment and Plan - Assessment and Plan (Free Text) Assessment: Schizoaffective disorder- bipolar type Colitis Seizures DM Plan: Continue present plan. Psych basilio, stable for discharge to home once medically cleared.
--- NOTE | 2016-10-18 20:34 | CP.PCM.PN ---
Subjective - Date & Time of Evaluation Date of Evaluation: 10/18/16 Time of Evaluation: 20:31 - Subjective Subjective: Very concerned about ongoing abdominal discomfort. He is eating okay, but he still having some problem in eating. Anxious and also epigastric discomfort especially when he is very anxious. He did not have a bathroom today. Yesterday he had one bowel movement. He is not having any wheezing. No cough no chills. Currently receiving anticoagulation Patient did not go to have MRCP because of the medical condition. He is very anxious, and also significant phobia noted. Vital signs reviewed No neck vein distention noted Chest good air entry bilaterally, no wheezing or rales noted CVS regular heart sound, no murmur noted Abdomen soft, nontender. 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 This is concerning about malnutrition. Which is probably causing immunosuppression also. Assessment/condition: 61-year-old male with history of schizoaffective disorder, bipolar anxiety depression. Currently having significant somatic symptoms associated with the poor malnourishment and poor intake. Significant weight loss. There is severely low globulin level noted. We'll repeat the labs tomorrow when necessary the main and also in the globulin level performances and will follow the patient Objective - Vital Signs/Intake and Output Vital Signs (last 24 hours): Temp Pulse Resp BP Pulse Ox 98.0 F 104 H 20 146/83 96 10/18/16 08:00 10/18/16 08:00 10/18/16 08:00 10/18/16 10:06 10/18/16 08:00 Intake and Output: 10/18/16 10/19/16 18:59 06:59 Intake Total 960 Balance 960 - Medications Medications: Current Medications Dicyclomine HCl (Bentyl) 10 mg PO QID [facility] Last Admin: 10/18/16 17:31 Dose: 10 mg Docusate Sodium (Colace) 100 mg PO BID [facility] Last Admin: 10/18/16 17:31 Dose: 100 mg Enalapril Maleate (Vasotec) 5 mg PO DAILY [facility] Last Admin: 10/18/16 10:06 Dose: 5 mg Enoxaparin Sodium (Lovenox) 60 mg SC Q12 [facility] Last Admin: 10/18/16 10:05 Dose: 60 mg Metronidazole (Flagyl) 500 mg in 100 mls @ 100 mls/hr IVPB Q8H [facility] Last Admin: 10/18/16 13:50 Dose: 100 mls/hr Lorazepam (Ativan) 2 mg PO TID [facility] Last Admin: 10/18/16 17:31 Dose: 2 mg Metoprolol Succinate (Toprol Xl) 50 mg PO DAILY [facility] Last Admin: 10/18/16 10:06 Dose: 50 mg Olanzapine (Zyprexa) 20 mg PO [facility] Last Admin: 10/17/16 21:40 Dose: 20 mg Pantoprazole Sodium (Protonix Ec Tab) 40 mg PO DAILY [facility] Last Admin: 10/18/16 10:05 Dose: 40 mg Phenytoin Sodium (Dilantin) 100 mg PO TID [facility] Last Admin: 10/18/16 17:31 Dose: 100 mg Zolpidem Tartrate (Ambien) 5 mg PO [facility] Last Admin: 10/17/16 21:38 Dose: 5 mg - Labs Labs: 10/18/16 08:46 10/18/16 08:46 PT 13.1 SECONDS (9.7-12.2) H 10/09/16 08:59 INR 1.2 10/09/16 08:59 APTT 33 SECONDS (21-34) 10/09/16 08:59 Assessment and Plan (1) Cholelithiasis Status: Acute (2) Colitis Status: Acute (3) Deep vein thrombosis (DVT) of right lower extremity Status: Acute (4) Fatty liver Status: Acute (5) Schizophrenia Status: Acute
[2016-10-19] MEDS: metroNIDAZOLE IV 500 mg/100 ml 500 MG/100 ML BAG IVPB SCH ×3 (05:20→22:27)
[2016-10-19 07:16] LABS: BASO % 0.9 % (0.0-2.0); EOS # 0.1 K/uL (0.0-0.7); EOS % 2.3 % (0.0-4.0); HEMOGLOBIN 12.9 g/dL (12.0-18.0); LYMPH # 2.2 K/uL (1.0-4.3); LYMPH % 41.3 % (20.0-40.0); MEAN CELL VOLUME 88.7 fL (80.0-94.0); MEAN CORPUSCULAR HEMOGLOBIN 30.9 pg (27.0-31.0); MEAN CORPUSCULAR HGB CONC 34.8 g/dL (33.0-37.0); MEAN PLATELET VOLUME 8.6 fL (7.2-11.7); MONO # 0.6 K/uL (0.0-0.8); MONO % 11.5 % (0.0-10.0); NEUT # 2.3 K/uL (1.8-7.0); NRBC % 0.1 % (0.0-2.0); RBC 4.18 Mil/uL (4.40-5.90); RED CELL DISTRIBUTION WIDTH 13.5 % (11.5-14.5); WHITE BLOOD COUNT 5.2 K/uL (4.8-10.8)
[2016-10-19 07:28] LABS: ALBUMIN 3.3 g/dL (3.5-5.0)
[2016-10-19 07:31] LABS: ALB/GLOB RATIO 1.4 (1.0-2.1); ALT/SGPT 46 U/L (21-72); AST/SGOT 22 U/L (17-59); BLOOD UREA NITROGEN 17 mg/dL (9-20); GFR AFRICAN-AMERICAN > 60; GFR NON-AFRICAN AMERICAN > 60
[2016-10-19 07:32] LABS: CALCIUM 9.1 mg/dl (8.6-10.4)
[2016-10-19 08:12] LABS: PREALBUMIN 27.2 mg/dL (17.6-36.0)
[2016-10-19] MEDS: Enoxaparin 60 mg Syringe SC SCH (09:39)
[2016-10-19] MEDS: Pantoprazole 40 mg EC Tab PO SCH (09:39)
[2016-10-19] MEDS: Metoprolol Succinate 50 mg XL Tab PO SCH (09:41)
[2016-10-19 12:57] LABS: INR 1.1; PROTHROMBIN TIME 12.1 SECONDS (9.7-12.2)
--- NOTE | 2016-10-19 18:07 | CP.PCM.PN ---
Subjective - Date & Time of Evaluation Date of Evaluation: 10/19/16 Time of Evaluation: 18:02 - Subjective Subjective: Patient seen with . Still very anxious, somatic and complaining of recurrent abdominal pain and poor appetite despite meds. Awaiting medical clearance from Dr. Licona prior to discharge to home. Patient continues to have very high free floating anxiety level that responded to tx with ECT tx in the past but refusing to have ECT again due to memory loss. MSE- frail looking male, seen in his room with his , O x 3. mood is anxious , somatic, affect is reactive. Speech is spontaneous. TP- coherent TC- no si o rhi, no psychosis, preoccupied about his abdominal pain. Attention and memory fair. Insight and Judgment limited. Fair impulse control. Objective - Vital Signs/Intake and Output Vital Signs (last 24 hours): Temp Pulse Resp BP Pulse Ox 98 F 92 H 20 133/82 96 10/19/16 15:00 10/19/16 15:00 10/19/16 15:00 10/19/16 15:00 10/19/16 15:00 Intake and Output: 10/19/16 10/19/16 06:59 18:59 Intake Total 580 200 Balance 580 200 - Medications Medications: Current Medications Dicyclomine HCl (Bentyl) 10 mg PO QID [facility] Last Admin: 10/19/16 17:44 Dose: 10 mg Docusate Sodium (Colace) 100 mg PO BID [facility] Last Admin: 10/19/16 17:44 Dose: 100 mg Enalapril Maleate (Vasotec) 5 mg PO DAILY [facility] Last Admin: 10/19/16 09:40 Dose: 5 mg Enoxaparin Sodium (Lovenox) 60 mg SC Q12 [facility] Last Admin: 10/19/16 09:39 Dose: 60 mg Metronidazole (Flagyl) 500 mg in 100 mls @ 100 mls/hr IVPB Q8H [facility] Last Admin: 10/19/16 13:56 Dose: 100 mls/hr Lorazepam (Ativan) 2 mg PO TID [facility] Last Admin: 10/19/16 17:45 Dose: 2 mg Metoprolol Succinate (Toprol Xl) 50 mg PO DAILY [facility] Last Admin: 10/19/16 09:41 Dose: 50 mg Olanzapine (Zyprexa) 20 mg PO HS [facility] Last Admin: 10/18/16 21:36 Dose: 20 mg Pantoprazole Sodium (Protonix Ec Tab) 40 mg PO DAILY [facility] Last Admin: 10/19/16 09:39 Dose: 40 mg Phenytoin Sodium (Dilantin) 100 mg PO TID [facility] Last Admin: 10/19/16 17:44 Dose: 100 mg Zolpidem Tartrate (Ambien) 5 mg PO [facility] Last Admin: 10/18/16 21:28 Dose: 5 mg - Labs Labs: 10/19/16 06:49 10/19/16 06:49 PT 12.1 SECONDS (9.7-12.2) 10/19/16 12:34 INR 1.1 10/19/16 12:34 APTT 43 SECONDS (21-34) H 10/19/16 12:34 - Constitutional Appears: No Acute Distress, Older Than Stated Age, Chronically Ill - Head Exam Head Exam: NORMOCEPHALIC - Eye Exam Eye Exam: Normal appearance - ENT Exam ENT Exam: Normal Exam - Neck Exam Neck Exam: Full ROM - Respiratory Exam Respiratory Exam: NORMAL BREATHING PATTERN - Cardiovascular Exam Additional comments: no chest pain - GI/Abdominal Exam Additional comments: has recurrent abdominal pain, has poor appetite - Extremities Exam Extremities Exam: Normal Inspection Additional comments: no tremors - Back Exam Additional comments: no back pain - Neurological Exam Neurological Exam: Alert, Oriented x3 Assessment and Plan - Assessment and Plan (Free Text) Assessment: Schizoaffective disorder- bipolar type Colitis Seizures DM Plan: Continue present meds. Awaiting medicall clearance for discharge from [facility].
--- NOTE | 2016-10-19 20:47 | CP.PCM.PN ---
Subjective - Date & Time of Evaluation Date of Evaluation: 10/19/16 Time of Evaluation: 20:45 - Subjective Subjective: Patient is still having epigastric pain, abdominal pain noted. After that the patient has some improvement. No bowel movements today Patient did not go to have MRCP because of the medical condition. He is very anxious, and also significant phobia noted. Vital signs reviewed No neck vein distention noted Chest good air entry bilaterally, no wheezing or rales noted CVS regular heart sound, no murmur noted Abdomen soft, nontender. 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 Prealbumin level is normal now. But IgG level is on the low side. Assessment/condition: 61-year-old male with history of schizoaffective disorder, bipolar anxiety depression. Currently having significant somatic symptoms associated with the poor malnourishment and poor intake. Significant weight loss. There is severely low globulin level noted. Will add Dulcolax a post daily. Pepcid. Will discontinue Lovenox and start the patient on a eliquis Objective - Vital Signs/Intake and Output Vital Signs (last 24 hours): Temp Pulse Resp BP Pulse Ox 98 F 92 H 20 133/82 96 10/19/16 15:00 10/19/16 15:00 10/19/16 15:00 10/19/16 15:00 10/19/16 15:00 Intake and Output: 10/19/16 10/20/16 18:59 06:59 Intake Total 200 Balance 200 - Medications Medications: Current Medications Apixaban (Eliquis) 5 mg PO BID [facility] Dicyclomine HCl (Bentyl) 10 mg PO QID [facility] Last Admin: 10/19/16 17:44 Dose: 10 mg Docusate Sodium (Colace) 100 mg PO BID [facility] Last Admin: 10/19/16 17:44 Dose: 100 mg Enalapril Maleate (Vasotec) 5 mg PO DAILY [facility] Last Admin: 10/19/16 09:40 Dose: 5 mg Metronidazole (Flagyl) 500 mg in 100 mls @ 100 mls/hr IVPB Q8H [facility] Last Admin: 10/19/16 13:56 Dose: 100 mls/hr Lorazepam (Ativan) 2 mg PO TID [facility] Last Admin: 10/19/16 17:45 Dose: 2 mg Metoprolol Succinate (Toprol Xl) 50 mg PO DAILY [facility] Last Admin: 10/19/16 09:41 Dose: 50 mg Olanzapine (Zyprexa) 20 mg PO HS [facility] Last Admin: 10/18/16 21:36 Dose: 20 mg Pantoprazole Sodium (Protonix Ec Tab) 40 mg PO DAILY [facility] Last Admin: 10/19/16 09:39 Dose: 40 mg Phenytoin Sodium (Dilantin) 100 mg PO TID [facility] Last Admin: 10/19/16 17:44 Dose: 100 mg Zolpidem Tartrate (Ambien) 5 mg PO HS [facility] Last Admin: 10/18/16 21:28 Dose: 5 mg - Labs Labs: 10/19/16 06:49 10/19/16 06:49 PT 12.1 SECONDS (9.7-12.2) 10/19/16 12:34 INR 1.1 10/19/16 12:34 APTT 43 SECONDS (21-34) H 10/19/16 12:34 Assessment and Plan (1) Cholelithiasis Status: Acute (2) Colitis Status: Acute (3) Deep vein thrombosis (DVT) of right lower extremity Status: Acute (4) Fatty liver Status: Acute (5) Schizophrenia Status: Acute
[2016-10-20] MEDS: metroNIDAZOLE IV 500 mg/100 ml 500 MG/100 ML BAG IVPB SCH ×3 (05:18→21:23)
[2016-10-20] MEDS: Pantoprazole 40 mg EC Tab PO SCH (10:14)
[2016-10-20] MEDS: Metoprolol Succinate 50 mg XL Tab PO SCH (10:16)
--- NOTE | 2016-10-20 12:50 | CP.PCM.PN ---
Subjective - Date & Time of Evaluation Date of Evaluation: 10/20/16 Time of Evaluation: 12:47 - Subjective Subjective: Patient seen today and ate almost 100% of his lunch. Patient is still very anxious, somatic, and has mild abdominal pain. MSE- frail looking male, O x3. in hospital gown, speech is spontaneous, affect is reactive. Mood is anxious. TP -coherent TC- no si or hi. no psychosis, obsessed with his abdominal pain.Attention and Memory fair. Insight adn Judgment fair. Impulse control fair. Objective - Vital Signs/Intake and Output Vital Signs (last 24 hours): Temp Pulse Resp BP Pulse Ox 98.5 F 97 H 20 147/81 96 10/20/16 08:00 10/20/16 08:00 10/20/16 08:00 10/20/16 10:15 10/20/16 08:00 Intake and Output: 10/20/16 10/20/16 06:59 18:59 Intake Total 380 Balance 380 - Medications Medications: Current Medications Apixaban (Eliquis) 5 mg PO BID [facility] Last Admin: 10/20/16 10:15 Dose: 5 mg Dicyclomine HCl (Bentyl) 10 mg PO QID [facility] Last Admin: 10/20/16 10:14 Dose: 10 mg Docusate Sodium (Colace) 100 mg PO BID [facility] Last Admin: 10/20/16 10:14 Dose: 100 mg Enalapril Maleate (Vasotec) 5 mg PO DAILY [facility] Last Admin: 10/20/16 10:15 Dose: 5 mg Metronidazole (Flagyl) 500 mg in 100 mls @ 100 mls/hr IVPB Q8H [facility] Last Admin: 10/20/16 05:18 Dose: 100 mls/hr Lorazepam (Ativan) 2 mg PO TID [facility] Last Admin: 10/20/16 10:13 Dose: 2 mg Metoprolol Succinate (Toprol Xl) 50 mg PO DAILY [facility] Last Admin: 10/20/16 10:16 Dose: 50 mg Olanzapine (Zyprexa) 20 mg PO HS [facility] Last Admin: 10/19/16 22:29 Dose: 20 mg Pantoprazole Sodium (Protonix Ec Tab) 40 mg PO DAILY [facility] Last Admin: 10/20/16 10:14 Dose: 40 mg Phenytoin Sodium (Dilantin) 100 mg PO TID [facility] Last Admin: 10/20/16 10:14 Dose: 100 mg Zolpidem Tartrate (Ambien) 5 mg PO HS [facility] Last Admin: 10/19/16 22:28 Dose: 5 mg - Labs Labs: 10/19/16 06:49 10/19/16 06:49 PT 12.1 SECONDS (9.7-12.2) 10/19/16 12:34 INR 1.1 10/19/16 12:34 APTT 43 SECONDS (21-34) H 10/19/16 12:34 - Constitutional Appears: No Acute Distress, Cachectic, Chronically Ill - Head Exam Head Exam: NORMOCEPHALIC - Eye Exam Eye Exam: Normal appearance Pupil Exam: NORMAL ACCOMODATION - ENT Exam ENT Exam: Normal External Ear Exam - Neck Exam Neck Exam: Full ROM - Respiratory Exam Respiratory Exam: NORMAL BREATHING PATTERN - Cardiovascular Exam Cardiovascular Exam: REGULAR RHYTHM, +S1, +S2. absent: Murmur - GI/Abdominal Exam Additional comments: still has mild abdominal pain, appetite is still poor but ate almost 100% of this lunch. - Extremities Exam Extremities Exam: Full ROM - Back Exam Back Exam: NORMAL INSPECTION - Neurological Exam Neurological Exam: Alert, Awake, Oriented x3 - Psychiatric Exam Psychiatric exam: Anxious, Depressed - Skin Skin Exam: Normal Color Assessment and Plan - Assessment and Plan (Free Text) Assessment: Schizoaffective disorder- bipolar type DM, Colitis, seizures Plan: Continue present meds. Psych stable to go home once medically cleared by PMD.
[2016-10-20 19:04] LABS: ALBUMIN (PEP) 3.5 g/dL (3.8-4.8); ALPHA-1-GLOBULIN (PEP) 0.2 g/dL (0.2-0.3)
[2016-10-21] MEDS: Metoprolol Succinate 50 mg XL Tab PO SCH (10:11)
[2016-10-21] MEDS: Pantoprazole 40 mg EC Tab PO SCH (10:12)
--- NOTE | 2016-10-21 15:13 | CP.PCM.PN ---
Subjective - Date & Time of Evaluation Date of Evaluation: 10/21/16 Time of Evaluation: 15:07 - Subjective Subjective: Patient seen today and obsessed about feeling lump in his left lower quadrant. Patient still very anxious, somatic but eating better his meals. Patient wants to go home but awaiting medical clearance. Patient now on Dilantin 100 mg po tid and will do Dilantin level in am as Ativan can cause Dilantin levels to rise in certain cases. MSE- frail looking male, in hospital gown, alert and oriented x 3. Mood is still anxious, somatic, affect is reactive. TP- coherent TC- obsessed about the lump he felt in his lower abdomen. Attention and Memory fair. Insight and Judgment limited. Impulse control. Objective - Vital Signs/Intake and Output Vital Signs (last 24 hours): Temp Pulse Resp BP Pulse Ox 98.4 F 90 20 156/80 H 98 10/21/16 07:30 10/21/16 07:30 10/21/16 07:30 10/21/16 10:12 10/21/16 07:30 Intake and Output: 10/21/16 10/21/16 06:59 18:59 Intake Total 370 400 Balance 370 400 - Medications Medications: Current Medications Apixaban (Eliquis) 5 mg PO BID [facility] Last Admin: 10/21/16 10:12 Dose: 5 mg Dicyclomine HCl (Bentyl) 10 mg PO QID [facility] Last Admin: 10/21/16 13:24 Dose: 10 mg Docusate Sodium (Colace) 100 mg PO BID [facility] Last Admin: 10/21/16 10:12 Dose: 100 mg Enalapril Maleate (Vasotec) 5 mg PO DAILY [facility] Last Admin: 10/21/16 10:12 Dose: 5 mg Lorazepam (Ativan) 2 mg PO TID [facility] Last Admin: 10/21/16 13:24 Dose: 2 mg Metoprolol Succinate (Toprol Xl) 50 mg PO DAILY [facility] Last Admin: 10/21/16 10:11 Dose: 50 mg Olanzapine (Zyprexa) 20 mg PO HS [facility] Last Admin: 10/20/16 21:26 Dose: 20 mg Pantoprazole Sodium (Protonix Ec Tab) 40 mg PO DAILY [facility] Last Admin: 10/21/16 10:12 Dose: 40 mg Phenytoin Sodium (Dilantin) 100 mg PO TID [facility] Last Admin: 10/21/16 13:24 Dose: 100 mg Zolpidem Tartrate (Ambien) 5 mg PO HS [facility] Last Admin: 10/20/16 21:24 Dose: 5 mg - Labs Labs: 10/19/16 06:49 10/19/16 06:49 PT 12.1 SECONDS (9.7-12.2) 10/19/16 12:34 INR 1.1 10/19/16 12:34 APTT 43 SECONDS (21-34) H 10/19/16 12:34 - Constitutional Appears: No Acute Distress, Cachectic, Chronically Ill - Eye Exam Eye Exam: Normal appearance Pupil Exam: NORMAL ACCOMODATION - ENT Exam ENT Exam: Normal Exam - Neck Exam Neck Exam: Full ROM - Respiratory Exam Respiratory Exam: NORMAL BREATHING PATTERN - Cardiovascular Exam Additional comments: no chest pain - GI/Abdominal Exam Additional comments: eating better, no abdominal pain, feeling a lump in his left lower abdomen. - Exam Additional comments: no dysuria - Extremities Exam Extremities Exam: Full ROM - Back Exam Additional comments: no back pain - Neurological Exam Neurological Exam: Alert, Awake, Normal Gait, Oriented x3 - Psychiatric Exam Psychiatric exam: Anxious, Depressed - Skin Skin Exam: Normal Color Assessment and Plan - Assessment and Plan (Free Text) Assessment: Schizoaffective disorder- bipolar type Colitis, DVT, DM, Seizures Plan: Continue present meds. Will do Dilantin level in am.Psych basilio, he is stable to gome once medically cleared.
--- NOTE | 2016-10-21 20:44 | CP.PCM.PN ---
Subjective - Date & Time of Evaluation Date of Evaluation: 10/20/16 Time of Evaluation: 20:44 - Subjective Subjective: Patient still having episodes of abdominal pain. Constipation noted. Denies any nausea vomiting. On examination: Vital signs reviewed No neck vein distention noted Chest good air entry bilaterally, no wheezing or rales noted CVS regular heart sound, no murmur noted Abdomen soft, nontender. 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 He is extremely anxious and the upset about going home. Increasing abdominal symptoms noted. He did not have any sleeping. Currently he is eating slightly better than before Assessment and recommended condition: 61-year-old male with a history of bipolar disease, schizophrenia, anxiety and the insomnia. Currently on multiple anti-psychotic medication. Patient is currently having failure to thrive, significant protein energy malnourishment. On supportive care. Colitis. DVT. On anticoagulation Objective - Vital Signs/Intake and Output Vital Signs (last 24 hours): Temp Pulse Resp BP Pulse Ox 98.3 F 94 H 20 147/85 97 10/21/16 16:00 10/21/16 16:00 10/21/16 16:00 10/21/16 16:00 10/21/16 16:00 Intake and Output: 10/21/16 10/22/16 18:59 06:59 Intake Total 400 Balance 400 - Medications Medications: Current Medications Apixaban (Eliquis) 5 mg PO BID [facility] Last Admin: 10/21/16 17:53 Dose: 5 mg Dicyclomine HCl (Bentyl) 10 mg PO QID [facility] Last Admin: 10/21/16 17:53 Dose: 10 mg Docusate Sodium (Colace) 100 mg PO BID [facility] Last Admin: 10/21/16 17:54 Dose: 100 mg Enalapril Maleate (Vasotec) 5 mg PO DAILY [facility] Last Admin: 10/21/16 10:12 Dose: 5 mg Lorazepam (Ativan) 2 mg PO TID [facility] Last Admin: 10/21/16 17:53 Dose: 2 mg Metoprolol Succinate (Toprol Xl) 50 mg PO DAILY [facility] Last Admin: 10/21/16 10:11 Dose: 50 mg Olanzapine (Zyprexa) 20 mg PO HS [facility] Last Admin: 10/20/16 21:26 Dose: 20 mg Pantoprazole Sodium (Protonix Ec Tab) 40 mg PO DAILY [facility] Last Admin: 10/21/16 10:12 Dose: 40 mg Phenytoin Sodium (Dilantin) 100 mg PO TID [facility] Last Admin: 10/21/16 17:53 Dose: 100 mg Zolpidem Tartrate (Ambien) 5 mg PO HS [facility] Last Admin: 10/20/16 21:24 Dose: 5 mg - Labs Labs: 10/19/16 06:49 10/19/16 06:49 PT 12.1 SECONDS (9.7-12.2) 10/19/16 12:34 INR 1.1 10/19/16 12:34 APTT 43 SECONDS (21-34) H 10/19/16 12:34 Assessment and Plan (1) Cholelithiasis Status: Acute (2) Colitis Status: Acute (3) Deep vein thrombosis (DVT) of right lower extremity Status: Acute (4) Fatty liver Status: Acute (5) Schizophrenia Status: Acute
--- NOTE | 2016-10-21 20:45 | CP.PCM.PN ---
Subjective - Date & Time of Evaluation Date of Evaluation: 10/21/16 Time of Evaluation: 20:45 - Subjective Subjective: Patient still having episodes of abdominal pain. Constipation noted. Denies any nausea vomiting. On examination: Vital signs reviewed No neck vein distention noted Chest good air entry bilaterally, no wheezing or rales noted CVS regular heart sound, no murmur noted Abdomen soft, nontender. Extremities no pedal edema [facility] alert awake oriented 3, no functional neurological deficit Patient's labs reviewed in Spoke to the patient's . He is extremely anxious and the upset about going home. Increasing abdominal symptoms noted. He did not have any sleeping. Currently he is eating slightly better than before Assessment and recommended condition: 61-year-old male with a history of bipolar disease, schizophrenia, anxiety and the insomnia. Currently on multiple anti-psychotic medication. Patient is currently having failure to thrive, significant protein energy malnourishment. On supportive care. Colitis. DVT. On anticoagulation Objective - Vital Signs/Intake and Output Vital Signs (last 24 hours): Temp Pulse Resp BP Pulse Ox 98.3 F 94 H 20 147/85 97 10/21/16 16:00 10/21/16 16:00 10/21/16 16:00 10/21/16 16:00 10/21/16 16:00 Intake and Output: 10/21/16 10/22/16 18:59 06:59 Intake Total 400 Balance 400 - Medications Medications: Current Medications Apixaban (Eliquis) 5 mg PO BID [facility] Last Admin: 10/21/16 17:53 Dose: 5 mg Dicyclomine HCl (Bentyl) 10 mg PO QID [facility] Last Admin: 10/21/16 17:53 Dose: 10 mg Docusate Sodium (Colace) 100 mg PO BID [facility] Last Admin: 10/21/16 17:54 Dose: 100 mg Enalapril Maleate (Vasotec) 5 mg PO DAILY [facility] Last Admin: 10/21/16 10:12 Dose: 5 mg Lorazepam (Ativan) 2 mg PO TID [facility] Last Admin: 10/21/16 17:53 Dose: 2 mg Metoprolol Succinate (Toprol Xl) 50 mg PO DAILY [facility] Last Admin: 10/21/16 10:11 Dose: 50 mg Olanzapine (Zyprexa) 20 mg PO HS [facility] Last Admin: 10/20/16 21:26 Dose: 20 mg Pantoprazole Sodium (Protonix Ec Tab) 40 mg PO DAILY [facility] Last Admin: 10/21/16 10:12 Dose: 40 mg Phenytoin Sodium (Dilantin) 100 mg PO TID [facility] Last Admin: 10/21/16 17:53 Dose: 100 mg Zolpidem Tartrate (Ambien) 5 mg PO HS [facility] Last Admin: 10/20/16 21:24 Dose: 5 mg - Labs Labs: 10/19/16 06:49 10/19/16 06:49 PT 12.1 SECONDS (9.7-12.2) 10/19/16 12:34 INR 1.1 10/19/16 12:34 APTT 43 SECONDS (21-34) H 10/19/16 12:34 Assessment and Plan (1) Cholelithiasis Status: Acute (2) Colitis Status: Acute (3) Deep vein thrombosis (DVT) of right lower extremity Status: Acute (4) Fatty liver Status: Acute (5) Schizophrenia Status: Acute
[2016-10-22] MEDS: Pantoprazole 40 mg EC Tab PO SCH (10:08)
[2016-10-22] MEDS: Metoprolol Succinate 50 mg XL Tab PO SCH (10:08)
--- NOTE | 2016-10-22 17:08 | CP.PCM.PN ---
Subjective - Date & Time of Evaluation Date of Evaluation: 10/22/16 Time of Evaluation: 17:08 Objective - Vital Signs/Intake and Output Vital Signs (last 24 hours): Temp Pulse Resp BP Pulse Ox 98.3 F 86 20 135/83 96 10/22/16 16:00 10/22/16 16:00 10/22/16 16:00 10/22/16 16:00 10/22/16 16:00 Intake and Output: 10/22/16 10/22/16 06:59 18:59 Intake Total 300 500 Output Total 400 Balance -100 500 - Medications Medications: Current Medications Apixaban (Eliquis) 5 mg PO BID [facility] Last Admin: 10/22/16 10:09 Dose: 5 mg Dicyclomine HCl (Bentyl) 10 mg PO QID [facility] Last Admin: 10/22/16 13:48 Dose: 10 mg Docusate Sodium (Colace) 100 mg PO BID [facility] Last Admin: 10/22/16 10:08 Dose: 100 mg Enalapril Maleate (Vasotec) 5 mg PO DAILY [facility] Last Admin: 10/22/16 10:08 Dose: 5 mg Lorazepam (Ativan) 2 mg PO TID [facility] Last Admin: 10/22/16 13:48 Dose: 2 mg Metoprolol Succinate (Toprol Xl) 50 mg PO DAILY [facility] Last Admin: 10/22/16 10:08 Dose: 50 mg Olanzapine (Zyprexa) 20 mg PO HS [facility] Last Admin: 10/21/16 21:22 Dose: 20 mg Pantoprazole Sodium (Protonix Ec Tab) 40 mg PO DAILY [facility] Last Admin: 10/22/16 10:08 Dose: 40 mg Phenytoin Sodium (Dilantin) 100 mg PO TID [facility] Last Admin: 10/22/16 13:48 Dose: 100 mg Zolpidem Tartrate (Ambien) 5 mg PO HS [facility] Last Admin: 10/21/16 21:21 Dose: 5 mg - Labs Labs: 10/19/16 06:49 10/19/16 06:49 PT 12.1 SECONDS (9.7-12.2) 10/19/16 12:34 INR 1.1 10/19/16 12:34 APTT 43 SECONDS (21-34) H 10/19/16 12:34 Assessment and Plan (1) Cholelithiasis Status: Acute (2) Colitis Status: Acute (3) Deep vein thrombosis (DVT) of right lower extremity Status: Acute (4) Fatty liver Status: Acute (5) Schizophrenia Status: Acute
--- NOTE | 2016-10-22 18:36 | CP.PCM.PN ---
Subjective - Date & Time of Evaluation Date of Evaluation: 10/22/16 Time of Evaluation: 18:32 - Subjective Subjective: Patient seen today and wants to go home in am. Patient still very anxious, somatic, but eating better. Has been compliant with meds. Dilantin level is 13.5. MSE- frail looking male, seen with , oriented x 3, speech is spontaneous, affect is reactive. Mood is anxious, depressed, somatic . TP- coherent TC- no si or hi, no psychosis. Attention and Memory fair. Insight and Judgment fair. Impulse control fair. Objective - Vital Signs/Intake and Output Vital Signs (last 24 hours): Temp Pulse Resp BP Pulse Ox 98.3 F 86 20 135/83 96 10/22/16 16:00 10/22/16 16:00 10/22/16 16:00 10/22/16 16:00 10/22/16 16:00 Intake and Output: 10/22/16 10/22/16 06:59 18:59 Intake Total 300 500 Output Total 400 Balance -100 500 - Medications Medications: Current Medications Dicyclomine HCl (Bentyl) 10 mg PO QID [facility] Last Admin: 10/22/16 18:04 Dose: 10 mg Docusate Sodium (Colace) 100 mg PO BID [facility] Last Admin: 10/22/16 18:04 Dose: 100 mg Enalapril Maleate (Vasotec) 5 mg PO DAILY [facility] Last Admin: 10/22/16 10:08 Dose: 5 mg Lorazepam (Ativan) 2 mg PO TID [facility] Last Admin: 10/22/16 18:05 Dose: 2 mg Metoprolol Succinate (Toprol Xl) 50 mg PO DAILY [facility] Last Admin: 10/22/16 10:08 Dose: 50 mg Olanzapine (Zyprexa) 20 mg PO HS [facility] Last Admin: 10/21/16 21:22 Dose: 20 mg Pantoprazole Sodium (Protonix Ec Tab) 40 mg PO DAILY [facility] Last Admin: 10/22/16 10:08 Dose: 40 mg Phenytoin Sodium (Dilantin) 100 mg PO TID [facility] Last Admin: 10/22/16 18:04 Dose: 100 mg Zolpidem Tartrate (Ambien) 5 mg PO HS [facility] Last Admin: 10/21/16 21:21 Dose: 5 mg - Labs Labs: 10/19/16 06:49 10/19/16 06:49 PT 12.1 SECONDS (9.7-12.2) 10/19/16 12:34 INR 1.1 10/19/16 12:34 APTT 43 SECONDS (21-34) H 10/19/16 12:34 - Constitutional Appears: No Acute Distress, Cachectic, Chronically Ill - Head Exam Head Exam: NORMOCEPHALIC - Eye Exam Eye Exam: Normal appearance - ENT Exam ENT Exam: Normal Exam - Neck Exam Neck Exam: Full ROM - Respiratory Exam Respiratory Exam: NORMAL BREATHING PATTERN - Cardiovascular Exam Additional comments: no palpitations - GI/Abdominal Exam Additional comments: eating better his meals, no abdominal pain, still worried about a lump he felt in the lower abdomen - Exam Additional comments: no dysuria - Extremities Exam Additional comments: gait is unsteady at times - Back Exam Additional comments: no back pain - Neurological Exam Neurological Exam: Alert, Awake, Oriented x3 - Psychiatric Exam Psychiatric exam: Anxious, Depressed - Skin Skin Exam: Normal Color Assessment and Plan - Assessment and Plan (Free Text) Assessment: Schizoaffective disorder- bipolar type COlitis, DM, DVT, Seizures Plan: Continue present tx plan as ordered. Patient is for possible discharge in am. May follow-up in my office in 1 week once discharged.
[2016-10-23 01:20] VITALS: PULSE 78; O2SAT 98
[2016-10-23 07:39] VITALS: TEMP 98.2
[2016-10-23 09:45] VITALS: BP 132/82
[2016-10-23] MEDS: Metoprolol Succinate 50 mg XL Tab PO SCH (09:45)
[2016-10-23] MEDS: Pantoprazole 40 mg EC Tab PO SCH (09:45)
--- NOTE | 2016-10-23 12:37 | CP.PCM.PN ---
Subjective - Date & Time of Evaluation Date of Evaluation: 10/23/16 Time of Evaluation: 12:37 - Subjective Subjective: PT TO BE D/C HOME TODAY PER DR. NIEVES. COATER OPERATOR DISCUSSED AT LENGTH D/C PLAN, F/ U APPOINTMENTS, AND ALL MEDICATIONS (INCLUDING NEW RX) WITH PT AND . DR. DOWNEY AT BEDSIDE AND OK'D CONTINUATION OF ATIVAN 2MG PO TID. PT ENCOURAGED TO APPLY WARM COMPRESSES TO LUMP AT LEFT UMBILICUS (THIS AREA HAS IMPROVED SIGNIFICANTLY SINCE SUNDAY; TODAY IT IS NONTENDER, NONMOBILE, APPROX 1.5 CM X 1.5CM; LIKELY 2/2 LOVENOX INJ). PT TO SEE DR. NIEVES IN THE OFFICE NEXT WEEK. NO FURTHER ORDERS. Objective - Vital Signs/Intake and Output Vital Signs (last 24 hours): Temp Pulse Resp BP Pulse Ox 98.2 F 78 20 132/82 98 10/23/16 07:36 10/23/16 07:36 10/23/16 07:36 10/23/16 09:43 10/23/16 07:36 Intake and Output: 10/23/16 10/23/16 06:59 18:59 Intake Total 300 200 Balance 300 200 - Medications Medications: Current Medications Dicyclomine HCl (Bentyl) 10 mg PO QID [facility] Last Admin: 10/23/16 09:45 Dose: 10 mg Docusate Sodium (Colace) 100 mg PO BID [facility] Last Admin: 10/23/16 09:45 Dose: 100 mg Enalapril Maleate (Vasotec) 5 mg PO DAILY [facility] Last Admin: 10/23/16 09:43 Dose: 5 mg Lorazepam (Ativan) 2 mg PO TID [facility] Last Admin: 10/23/16 09:43 Dose: 2 mg Metoprolol Succinate (Toprol Xl) 50 mg PO DAILY [facility] Last Admin: 10/23/16 09:45 Dose: 50 mg Olanzapine (Zyprexa) 20 mg PO HS [facility] Last Admin: 10/22/16 21:46 Dose: 20 mg Pantoprazole Sodium (Protonix Ec Tab) 40 mg PO DAILY [facility] Last Admin: 10/23/16 09:45 Dose: Not Given Phenytoin Sodium (Dilantin) 100 mg PO TID [facility] Last Admin: 10/23/16 09:44 Dose: 100 mg Zolpidem Tartrate (Ambien) 5 mg PO HS [facility] Last Admin: 10/22/16 21:46 Dose: 5 mg - Labs Labs: 10/19/16 06:49 10/19/16 06:49 PT 12.1 SECONDS (9.7-12.2) 10/19/16 12:34 INR 1.1 10/19/16 12:34 APTT 43 SECONDS (21-34) H 10/19/16 12:34
--- NOTE | 2016-10-23 14:30 | CP.PCM.PN ---
Subjective - Date & Time of Evaluation Date of Evaluation: 10/23/16 Time of Evaluation: 14:26 - Subjective Subjective: Patient seen today and will be going home today with . Patient is doing better and eating better. Patient will follow-up in my office in 1 week. MSE- frail looking male, seen with , oriented x 3. Speech is spontaneous. Affect is reactive. Mood is less anxious.TP- coherent TC- no si or hi, no psychosis. Attention and memory fair. Insight and Judgment fair.Impulse control fair. Objective - Vital Signs/Intake and Output Vital Signs (last 24 hours): Temp Pulse Resp BP Pulse Ox 98.2 F 78 20 132/82 98 10/23/16 07:36 10/23/16 07:36 10/23/16 07:36 10/23/16 09:43 10/23/16 07:36 Intake and Output: 10/23/16 10/23/16 06:59 18:59 Intake Total 300 200 Balance 300 200 - Medications Medications: Current Medications Dicyclomine HCl (Bentyl) 10 mg PO QID [facility] Last Admin: 10/23/16 09:45 Dose: 10 mg Docusate Sodium (Colace) 100 mg PO BID [facility] Last Admin: 10/23/16 09:45 Dose: 100 mg Enalapril Maleate (Vasotec) 5 mg PO DAILY [facility] Last Admin: 10/23/16 09:43 Dose: 5 mg Lorazepam (Ativan) 2 mg PO TID [facility] Last Admin: 10/23/16 09:43 Dose: 2 mg Metoprolol Succinate (Toprol Xl) 50 mg PO DAILY [facility] Last Admin: 10/23/16 09:45 Dose: 50 mg Olanzapine (Zyprexa) 20 mg PO [facility] Last Admin: 10/22/16 21:46 Dose: 20 mg Pantoprazole Sodium (Protonix Ec Tab) 40 mg PO DAILY [facility] Last Admin: 10/23/16 09:45 Dose: Not Given Phenytoin Sodium (Dilantin) 100 mg PO TID [facility] Last Admin: 10/23/16 09:44 Dose: 100 mg Zolpidem Tartrate (Ambien) 5 mg PO [facility] Last Admin: 10/22/16 21:46 Dose: 5 mg - Labs Labs: 10/19/16 06:49 10/19/16 06:49 PT 12.1 SECONDS (9.7-12.2) 10/19/16 12:34 INR 1.1 10/19/16 12:34 APTT 43 SECONDS (21-34) H 10/19/16 12:34 - Constitutional Appears: Well, No Acute Distress, Cachectic, Chronically Ill - Head Exam Head Exam: NORMOCEPHALIC - Eye Exam Eye Exam: Normal appearance Pupil Exam: NORMAL ACCOMODATION - ENT Exam ENT Exam: Normal Exam - Neck Exam Neck Exam: Full ROM - Respiratory Exam Respiratory Exam: NORMAL BREATHING PATTERN - Cardiovascular Exam Additional comments: no chest pain - Rectal Exam Additional comments: no abdominal pain, eating better - Exam Additional comments: no dysuria - Extremities Exam Extremities Exam: Full ROM - Back Exam Additional comments: no back pain - Neurological Exam Neurological Exam: Alert, Awake, Oriented x3 - Psychiatric Exam Psychiatric exam: Anxious, Depressed - Skin Skin Exam: Normal Color Assessment and Plan - Assessment and Plan (Free Text) Assessment: Schizoaffective disorder Colitis, DM, seizures Plan: Psych stable for discharge today. Follow-up in my office in 1 week. Continue present psych meds.
== END 2016-10-23 14:55 | disposition home or self-care (01) | DRG 300 ==
LOC: C.ER 07:37 → C.9E 13:35 → C.3T 16:14
PROVIDERS: ADMIT Internal Medicine; ATTEND Internal Medicine
DX: I82.431 Acute embolism and thrombosis of right popliteal vein (principal); E46 Unspecified protein-calorie malnutrition; I82.411 Acute embolism and thrombosis of right femoral vein; K76.0 Fatty (change of) liver, not elsewhere classified; F25.0 Schizoaffective disorder, bipolar type; Z68.1 Body mass index [BMI] 19.9 or less, adult; K80.80 Other cholelithiasis without obstruction; K52.9 Noninfective gastroenteritis and colitis, unspecified; E11.9 Type 2 diabetes mellitus without complications; I10 Essential (primary) hypertension; K59.00 Constipation, unspecified; K63.5 Polyp of colon; K80.20 Calculus of gallbladder without cholecystitis without obstruction; R62.7 Adult failure to thrive; G47.00 Insomnia, unspecified; Z86.711 Personal history of pulmonary embolism

== ENCOUNTER 2016-10-24 09:04 | Emergency (ER) | payer MEDICARE, OTHER ==
[2016-10-24 10:18] LABS: URINE AMORPHOUS SEDIMENT RARE /ul (<OCC); URINE BILIRUBIN NEGATIVE (NEGATIVE); URINE BLOOD NEGATIVE (NEGATIVE); URINE CLARITY Clear (Clear); URINE COLOR Yellow (YELLOW); URINE GLUCOSE (UA) NORMAL (Normal); URINE LEUKOCYTE ESTERASE NEG Leu/uL (Negative); URINE NITRATE NEGATIVE (NEGATIVE); URINE PROTEIN NEGATIVE (NEGATIVE); URINE UROBILINOGEN NORMAL mg/dL (0.2-1.0)
--- NOTE | 2016-10-24 10:32 | C.PDOC ---
History Of Present Illness 61 y/o male, who was discharged from hospital yesterday, history of colitis, prior and new DVT - previously on Xarelto now on Eliquis - presents to ED with c /o difficulty urinating and associated frequency. Patient reports intermittent blurriness since Sunday (2 days), notes not present now, and that he regularly wears reading glasses which he did not bring with him today. Also reports history of BPH, not on any medications currently. Denies headache, fever, chills , nausea, vomiting, diarrhea, new weakness or numbness, chest pain, sob, or other associated symptoms. Time Seen by Provider: 10/24/16 09:16 Chief Complaint (Nursing): Male Genitourinary History Per: Patient History/Exam Limitations: no limitations Current Symptoms Are (Timing): Still Present Associated Symptoms: Urinary Symptoms. denies: Fever, Chills, Vomiting Recent travel outside of the [place]: No Past Medical History Reviewed: Historical Data, Nursing Documentation, Vital Signs Vital Signs: Last Vital Signs Temp 98.1 F 10/24/16 13:10 Pulse 104 H 10/24/16 13:17 Resp 18 10/24/16 13:17 BP 157/96 H 10/24/16 13:10 Pulse Ox 97 10/24/16 13:34 - Medical History PMH: Anxiety, Bipolar Disorder, Depression, HTN, Pulmonary Embolism, Schizophrenia (paranoid type), Seizures Surgical History: Tonsillectomy - [facility] Procedures EXCISION OF ASCENDING COLON, ENDO, DIAGN (07/06/16) EXCISION OF CECUM, ENDO, DIAGN (07/06/16) EXCISION OF DESCENDING COLON, ENDO, DIAGN (07/06/16) EXCISION OF ESOPHAGOGASTRIC JUNCTION, ENDO, DIAGN (07/06/16) EXCISION OF TRANSVERSE COLON, ENDO, DIAGN (07/06/16) GROUP PSYCHOTHERAPY (12/09/15) INDIVIDUAL PSYCHOTHERAPY, COGNITIVE-BEHAVIORAL (12/09/15) INSERTION OF ENDOTRACHEAL AIRWAY INTO TRACHEA, VIA OPENING (11/29/15) PSYCHIAT DRUG THERAP NEC (03/21/06) RESPIRATORY VENTILATION, 24-96 CONSECUTIVE HOURS (11/29/15) Family History: States: Unknown Family Hx - Social History Hx Tobacco Use: No Hx Alcohol Use: No Hx Substance Use: No - Immunization History Hx Tetanus Toxoid Vaccination: No Hx Influenza Vaccination: Yes (2014) Hx Pneumococcal Vaccination: Yes Review Of Systems Constitutional: Negative for: Fever, Chills Eyes: Positive for: Vision Change Cardiovascular: Negative for: Chest Pain Respiratory: Negative for: Cough, Shortness of Breath Gastrointestinal: Negative for: Nausea, Vomiting Genitourinary: Positive for: Frequency. Negative for: Dysuria, Hematuria Skin: Negative for: Rash Neurological: Negative for: Headache, Dizziness Physical Exam - Physical Exam Appears: Non-toxic, No Acute Distress Skin: Warm, Dry Head: Atraumatic, Normacephalic Eye(s): bilateral: PERRL, EOMI Ear(s): Bilateral: Normal Nose: Normal Oral Mucosa: Moist Chest: Symmetrical Cardiovascular: Rhythm Regular Respiratory: Normal Breath Sounds, No Rales, No Rhonchi, No Wheezing Gastrointestinal/Abdominal: Soft, No Tenderness, No Guarding, No Rebound Back: Normal Inspection Extremity: Normal ROM, Capillary Refill (< 2 sec.) Extremity: Bilateral: Normal Color And Temperature Neurological/Psych: Oriented x3, Normal Speech, Normal Cognition ED Course And Treatment O2 Sat by Pulse Oximetry: 97 (RA) Pulse Ox Interpretation: Normal Medical Decision Making Medical Decision Making: Plan: * EKG, Urinalysis * Reassess Progress: discussed with Dr Gusman; will d/c pt home, and will see him in office on or Sun. pt also to f/u with urologist and ruching machine operator. pt found to still be tachycardic and mildly hypertense; pt did not take his morning ativan nor bp medications. gave pt his medications, will recheck vs in a few minutes. 129 pm pt with hr 106, sill d/c Disposition Discussed With Dr.: Robert Gusman Doctor Will See Patient In The: Office Counseled Patient/Family Regarding: Studies Performed, Diagnosis, Need For Followup - Disposition Referrals: Robert Gusman MD [Staff Provider] - Uriel Parrish MD [Staff Provider] - Disposition: HOME/ ROUTINE Disposition Time: 13:31 Condition: STABLE Additional Instructions: Follow ujp with Dr Gusman on Thur or Fri. Follow up with Urologist- Dr Parrish- call for an appointment. Follow up with [facility] at [phone]. Return to ER for any worseing symptoms. Forms: General Discharge Instructions - Clinical Impression Clinical Impression: Urinary frequency - PA / EMBEDDED SYSTEMS ENGINEER / Resident Statement MD/DO has reviewed & agrees with the documentation as recorded. - Scribe Statement The provider has reviewed the documentation as recorded by the Brianibcornelia Jean-Baptiste All medical record entries made by the Enedelia were at my direction and personally dictated by me. I have reviewed the chart and agree that the record accurately reflects my personal performance of the history, physical exam, medical decision making, and the department course for this patient. I have also personally directed, reviewed, and agree with the discharge instructions and disposition.
[2016-10-24 13:10] VITALS: BP 157/96; RESP 18; TEMP 98.1
[2016-10-24 13:17] VITALS: PULSE 104
[2016-10-24 13:31] VITALS: O2SAT 97
--- NOTE | 2016-10-26 16:06 | CARD ---
APPROVED REPORT EKG Measurement Heart [id number] <Conclusion> Sinus tachycardia Otherwise normal for age.
== END 2016-10-24 13:38 | disposition home or self-care (01) ==
LOC: C.ER 09:04
DX: R35.0 Frequency of micturition (principal)

== ENCOUNTER 2017-01-05 10:56 | Emergency (ER) | payer MEDICARE ==
[2017-01-05] MEDS ORDERED: Sodium Chloride 0.9% 1,000 ML IV STA (11:36)
--- NOTE | 2017-01-05 11:48 | C.PDOC ---
History Of Present Illness 61 year old male with history of psychiatric and medical issues presents to the ED with complaints of abdominal pain and poor appetite for approximately 3-4 days. Patient denies nausea, vomiting, diarrhea, fever, or chills. Chief Complaint (Nursing): Abdominal Pain History Per: Patient History/Exam Limitations: no limitations Onset/Duration Of Symptoms: Days (3-4 days ) Current Symptoms Are (Timing): Still Present Location Of Pain/Discomfort: Diffuse Radiation Of Pain To:: None Quality Of Discomfort: "Pain" Associated Symptoms: denies: Fever, Chills, Nausea, Vomiting, Diarrhea Recent travel outside of the [place]: No Past Medical History Reviewed: Historical Data, Nursing Documentation, Vital Signs Vital Signs: Last Vital Signs Temp 98 F 01/05/17 18:24 Pulse 108 H 01/05/17 18:24 Resp 18 01/05/17 18:24 BP 155/91 H 01/05/17 18:24 Pulse Ox 99 01/05/17 18:24 - Medical History PMH: Anxiety, Bipolar Disorder, Depression, HTN, Pulmonary Embolism, Schizophrenia (paranoid type), Seizures Surgical History: Tonsillectomy - [facility] Procedures EXCISION OF ASCENDING COLON, ENDO, DIAGN (07/06/16) EXCISION OF CECUM, ENDO, DIAGN (07/06/16) EXCISION OF DESCENDING COLON, ENDO, DIAGN (07/06/16) EXCISION OF ESOPHAGOGASTRIC JUNCTION, ENDO, DIAGN (07/06/16) EXCISION OF TRANSVERSE COLON, ENDO, DIAGN (07/06/16) GROUP PSYCHOTHERAPY (12/09/15) INDIVIDUAL PSYCHOTHERAPY, COGNITIVE-BEHAVIORAL (12/09/15) INSERTION OF ENDOTRACHEAL AIRWAY INTO TRACHEA, VIA OPENING (11/29/15) PSYCHIAT DRUG THERAP NEC (03/21/06) RESPIRATORY VENTILATION, 24-96 CONSECUTIVE HOURS (11/29/15) Family History: States: Unknown Family Hx - Social History Hx Tobacco Use: No Hx Alcohol Use: No Hx Substance Use: No - Immunization History Hx Tetanus Toxoid Vaccination: No Hx Influenza Vaccination: Yes (2014) Hx Pneumococcal Vaccination: Yes Review Of Systems Constitutional: Positive for: Other (decreased appetite ). Negative for: Fever , Chills Cardiovascular: Negative for: Chest Pain, Palpitations Respiratory: Negative for: Cough, Shortness of Breath Gastrointestinal: Positive for: Abdominal Pain. Negative for: Nausea, Vomiting , Diarrhea Physical Exam - Physical Exam Appears: Non-toxic, No Acute Distress, Other (Patient appears calm ) Skin: Warm, Dry Head: Atraumatic, Normacephalic Eye(s): bilateral: Normal Inspection, PERRL, EOMI Oral Mucosa: Moist Neck: Normal ROM, Supple Chest: Symmetrical, No Deformity Cardiovascular: Rhythm Regular, No Murmur Respiratory: Normal Breath Sounds, No Rales, No Rhonchi, No Wheezing Gastrointestinal/Abdominal: Soft, Tenderness (tenderness to lower abdomen ), No Distention, No Guarding, No Rebound Extremity: Normal ROM, No Tenderness Neurological/Psych: Oriented x3 Gait: Steady ED Course And Treatment - Laboratory Results Result Diagrams: 01/05/17 11:57 01/05/17 11:57 ECG: Interpreted By Me, Viewed By Me ECG Rhythm: Sinus Rhythm ECG Interpretation: No Acute Changes Rate From EC O2 Sat by Pulse Oximetry: 96 (room air ) - Radiology CXR: Viewed By Me, Read By Radiologist CXR Interpretation: Yes: Other (Mild venous congestion. Right hilar prominence. ) - CT Scan/US Abdomen/pelvis CT Other Rad Studies (CT/US): Read By Radiologist, Radiology Report Reviewed CT/US Interpretation: Accession No. : [id number]. Patient Name / ID : KELLEN Cortes / [id number]. Exam Date : 01/05/2017 15:31:40 ( Approved ). Study Comment : Sex / Age : M / 61Y. Creator : katlyn murcia. Dictator : Jan Hicks. Event Marketing Assistant : Filter Screen Cleaner : Jan Hicks. Approver2 : Report Date : 01/05/2017 15:56:00. My Comment : . PROCEDURE: CT Abdomen and Pelvis with contrast. HISTORY: generalized abdominal pain/ poor appetite. COMPARISON: Comparison is made to the previous study dated . TECHNIQUE: Contrast dose: 100 mL of Visipaque 320. Radiation dose: Total exam DLP = 496.62 mGy-cm. This CT exam was performed using one or more of the following dose reduction techniques: Automated exposure control, adjustment of the mA and/or kV according to patient size, and/or use of iterative reconstruction technique. FINDINGS: LOWER THORAX: Unremarkable. LIVER: Unremarkable. No gross lesion or ductal dilatation. GALLBLADDER AND BILE DUCTS: The gallbladder is distended contains multiple small gallstones. No evidence of acute cholecystitis. The common bile duct is not dilated. PANCREAS: Unremarkable. No gross lesion or ductal dilatation. SPLEEN: Unremarkable. ADRENALS: Unremarkable. No mass. KIDNEYS AND URETERS: Unremarkable. No hydronephrosis. No solid mass. VASCULATURE: Unremarkable. No aortic aneurysm. BOWEL: The stomach is mildly distended. There is diffuse gastric wall and mucosal thickening. Correlate clinically for gastritis. There is also mild diffuse proximal small bowel wall thickening suspicious for enteritis. No evidence of bowel obstruction. No CT evidence of colitis. Scattered colonic diverticulosis are again seen without evidence of diverticulitis. APPENDIX: There is no evidence of appendicitis. PERITONEUM: Unremarkable. No free fluid. No free air. LYMPH NODES: No evidence of retroperitoneal lymphadenopathy. Again seen are small size calcified lymph nodes at the shin hepatis region and right upper abdomen. BLADDER: Mild urinary bladder wall thickening. REPRODUCTIVE: Moderately enlarged heterogeneous prostate and seminal vesicles are again seen. BONES: No acute fracture. OTHER FINDINGS: None. IMPRESSION: Diffuse gastric and small bowel wall thickening suspicious for gastroenteritis. Gallstones without evidence of acute cholecystitis. Moderately enlarged heterogeneous prostate and seminal vesicles. Otherwise no evidence of acute pathology in the abdomen and pelvis. Progress Note: EKG, CXR, UA, and blood work was ordered. Patient was given IV fluids. Case was d/w who wanted to observe patient in [place] for 24 h. Patiemt agreed, but later changed his mind and is asking to be d/c home. Patient 's is at bedside and is agreed to take patient home. They were instructed to return to Ed if patient feels worse. was notified and agreed. Disposition - Disposition Referrals: Robert Gusman MD [Staff Provider] - Disposition: HOME/ ROUTINE Disposition Time: 17:50 Condition: STABLE Additional Instructions: Follow up with within 1-2 days. Return to ED immediately if feel worse. Prescriptions: Dicyclomine [Bentyl] 20 mg PO TID #30 tab Instructions: Abdominal Pain (ED) Forms: [facility] (French) - Clinical Impression Clinical Impression: Abdominal pain, Poor appetite - PA / GLASS INSERTER / Resident Statement MD/DO has reviewed & agrees with the documentation as recorded. - Scribe Statement The provider has reviewed the documentation as recorded by the Scribe Karina Cespedes All medical record entries made by the Brianibcornelia were at my direction and personally dictated by me. I have reviewed the chart and agree that the record accurately reflects my personal performance of the history, physical exam, medical decision making, and the department course for this patient. I have also personally directed, reviewed, and agree with the discharge instructions and disposition.
[2017-01-05] MEDS ORDERED: Sodium Chloride 0.9% 1,000 ML ONE (12:00)
[2017-01-05 12:03] LABS: BASO % 0.5 % (0.0-2.0); EOS % 0.7 % (0.0-4.0); HEMATOCRIT 39.5 % (35.0-51.0); LYMPH # 1.4 K/uL (1.0-4.3); LYMPH % 27.8 % (20.0-40.0); MEAN CELL VOLUME 88.9 fL (80.0-94.0); MEAN CORPUSCULAR HEMOGLOBIN 31.6 pg (27.0-31.0); MEAN CORPUSCULAR HGB CONC 35.6 g/dL (33.0-37.0); MEAN PLATELET VOLUME 8.3 fL (7.2-11.7); MONO # 0.5 K/uL (0.0-0.8); NRBC % 0.1 % (0.0-2.0); WHITE BLOOD COUNT 5.1 K/uL (4.8-10.8)
[2017-01-05 12:12] LABS: CHLORIDE 102 mmol/L (98-107); INR 1.1; POTASSIUM 3.7 mmol/L (3.6-5.2); SODIUM 139 mmol/L (132-148)
[2017-01-05 12:14] LABS: ALB/GLOB RATIO 1.6 (1.0-2.1); AMYLASE 64 U/L (30-110); AST/SGOT 15 U/L (17-59); BILIRUBIN,TOTAL 0.8 mg/dL (0.2-1.3); CARBON DIOXIDE 26 mmol/L (22-30); GFR AFRICAN-AMERICAN > 60; TOTAL PROTEIN 6.8 g/dL (6.3-8.3)
[2017-01-05 12:15] LABS: ALKALINE PHOSPHATASE 55 U/L (38-126); ALT/SGPT 34 U/L (21-72); BLOOD UREA NITROGEN 17 mg/dL (9-20); CALCIUM 9.2 mg/dl (8.6-10.4); GLUCOSE,RANDOM 140 mg/dL (75-110); MAGNESIUM 1.8 mg/dL (1.6-2.3)
[2017-01-05] MEDS ORDERED: Iohexol 240 (50 ml) PO STA (12:23)
[2017-01-05 12:46] LABS: RBC URINE < 1 /hpf (0-3); URINE BILIRUBIN NEGATIVE (NEGATIVE); URINE BLOOD NEGATIVE (NEGATIVE); URINE COLOR Yellow (YELLOW); URINE GLUCOSE (UA) NORMAL (Normal); URINE KETONE NEGATIVE (NEGATIVE); URINE LEUKOCYTE ESTERASE NEG Leu/uL (Negative); URINE PROTEIN NEGATIVE (NEGATIVE); URINE UROBILINOGEN NORMAL mg/dL (0.2-1.0); WBC URINE < 1 /hpf (0-5)
[2017-01-05] MEDS ORDERED: Iohexol 240 (50 ml) ONE (12:49)
[2017-01-05] MEDS ORDERED: Iodixanol 320 MG/ML 100 ML BOTTLE IV ONE (13:16)
--- NOTE | 2017-01-05 13:16 | RAD ---
PROCEDURE: CHEST RADIOGRAPH, 1 VIEW HISTORY: Shortness of breath COMPARISON: None available. FINDINGS: LUNGS: Mild venous congestion. Right hilar prominence. PLEURA: No pneumothorax or pleural fluid seen. CARDIOVASCULAR: Normal. OSSEOUS STRUCTURES: Degenerative changes in the spine and shoulders. VISUALIZED UPPER ABDOMEN: Normal. OTHER FINDINGS: None. IMPRESSION: Mild venous congestion. Right hilar prominence.
--- NOTE | 2017-01-05 16:20 | CT ---
PROCEDURE: CT Abdomen and Pelvis with contrast HISTORY: generalized abdominal pain/poor appetite COMPARISON: Comparison is made to the previous study dated 10/09/2016 TECHNIQUE: Contrast dose: 100 mL of Visipaque 320. Radiation dose: Total exam DLP = 496.62 mGy-cm. This CT exam was performed using one or more of the following dose reduction techniques: Automated exposure control, adjustment of the mA and/or kV according to patient size, and/or use of iterative reconstruction technique. FINDINGS: LOWER THORAX: Unremarkable. LIVER: Unremarkable. No gross lesion or ductal dilatation. GALLBLADDER AND BILE DUCTS: The gallbladder is distended contains multiple small gallstones. No evidence of acute cholecystitis. The common bile duct is not dilated. PANCREAS: Unremarkable. No gross lesion or ductal dilatation. SPLEEN: Unremarkable. ADRENALS: Unremarkable. No mass. KIDNEYS AND URETERS: Unremarkable. No hydronephrosis. No solid mass. VASCULATURE: Unremarkable. No aortic aneurysm. BOWEL: The stomach is mildly distended. There is diffuse gastric wall and mucosal thickening. Correlate clinically for gastritis. There is also mild diffuse proximal small bowel wall thickening suspicious for enteritis. No evidence of bowel obstruction. No CT evidence of colitis. Scattered colonic diverticulosis are again seen without evidence of diverticulitis. APPENDIX: There is no evidence of appendicitis. PERITONEUM: Unremarkable. No free fluid. No free air. LYMPH NODES: No evidence of retroperitoneal lymphadenopathy. Again seen are small size calcified lymph nodes at the shin hepatis region and right upper abdomen. BLADDER: Mild urinary bladder wall thickening. REPRODUCTIVE: Moderately enlarged heterogeneous prostate and seminal vesicles are again seen. BONES: No acute fracture. OTHER FINDINGS: None. IMPRESSION: Diffuse gastric and small bowel wall thickening suspicious for gastroenteritis. Gallstones without evidence of acute cholecystitis. Moderately enlarged heterogeneous prostate and seminal vesicles. Otherwise no evidence of acute pathology in the abdomen and pelvis.
[2017-01-05 16:55] VITALS: RESP 18
[2017-01-05 18:25] VITALS: BP 155/91; PULSE 108; TEMP 98
[2017-01-05 19:02] VITALS: O2SAT 96
--- NOTE | 2017-01-06 01:07 | CARD ---
APPROVED REPORT EKG Measurement Heart [id number] HI [id number] [id number] <Conclusion> Normal sinus rhythm Left axis deviation Abnormal ECG
== END 2017-01-05 18:25 | disposition home or self-care (01) ==
LOC: C.ER 10:56 → UNDOADMOB 16:32 → C.9E 16:32 → C.ER 18:25
DX: R10.9 Unspecified abdominal pain (principal); R63.0 Anorexia; I10 Essential (primary) hypertension
CPT/HCPCS: 71010; 74177; 80053; 81001; 82150; 82550; 82553; 83605; 83690; 83735; 84484; 85025; 85610; 85730; 93005; 96360; 99285; J7040; Q9966; Q9967

== ENCOUNTER 2017-01-15 10:42 | Inpatient (IN) | payer MEDICARE ==
--- NOTE | 2017-01-15 12:40 | C.PDOC ---
History Of Present Illness 61 y/o male presents to emergency department with complaint of epigastric/LUQ abdominal pain for 3 weeks. Patient states he was seen at this ER 1.5 weeks ago for similar symptoms, diagnosed with gall stones, and refused admission to hospital. Patient reports he saw Dr. Gusman outpatient - has been taking Ursodol and states pain has worsened for the past 2 days. Also, patient reports associated nausea and has been unable to tolerate food. Denies vomiting, fever, chills, chest pain, SOB, or other complaints. Time Seen by Provider: 01/15/17 11:58 Chief Complaint (Nursing): Abdominal Pain History Per: Patient History/Exam Limitations: no limitations Onset/Duration Of Symptoms: Days Current Symptoms Are (Timing): Still Present Location Of Pain/Discomfort: Epigastric, LUQ Radiation Of Pain To:: None Quality Of Discomfort: "Pain" Associated Symptoms: Nausea. denies: Fever, Chills, Vomiting, Diarrhea, Chest Pain, Urinary Symptoms Recent travel outside of the [place]: No Past Medical History Reviewed: Historical Data, Nursing Documentation, Vital Signs Vital Signs: Last Vital Signs Temp 97.8 F 01/15/17 17:48 Pulse 84 01/15/17 17:48 Resp 18 01/15/17 17:48 BP 134/82 01/15/17 17:48 Pulse Ox 99 01/15/17 19:35 - Medical History PMH: Anxiety, Bipolar Disorder, Depression, HTN, Pulmonary Embolism, Schizophrenia (paranoid type), Seizures Surgical History: Tonsillectomy - [facility] Procedures EXCISION OF ASCENDING COLON, ENDO, DIAGN (07/06/16) EXCISION OF CECUM, ENDO, DIAGN (07/06/16) EXCISION OF DESCENDING COLON, ENDO, DIAGN (07/06/16) EXCISION OF ESOPHAGOGASTRIC JUNCTION, ENDO, DIAGN (07/06/16) EXCISION OF TRANSVERSE COLON, ENDO, DIAGN (07/06/16) GROUP PSYCHOTHERAPY (12/09/15) INDIVIDUAL PSYCHOTHERAPY, COGNITIVE-BEHAVIORAL (12/09/15) INSERTION OF ENDOTRACHEAL AIRWAY INTO TRACHEA, VIA OPENING (11/29/15) PSYCHIAT DRUG THERAP NEC (03/21/06) RESPIRATORY VENTILATION, 24-96 CONSECUTIVE HOURS (11/29/15) Family History: States: Unknown Family Hx - Social History Hx Tobacco Use: No Hx Alcohol Use: No Hx Substance Use: No - Immunization History Hx Tetanus Toxoid Vaccination: No Hx Influenza Vaccination: Yes (2015) Hx Pneumococcal Vaccination: Yes Review Of Systems Except As Marked, All Systems Reviewed And Found Negative. Constitutional: Negative for: Fever, Chills Cardiovascular: Negative for: Chest Pain, Palpitations Respiratory: Negative for: Cough, Shortness of Breath, Wheezing Gastrointestinal: Positive for: Nausea, Abdominal Pain. Negative for: Vomiting , Diarrhea Skin: Negative for: Rash Neurological: Negative for: Headache, Dizziness Physical Exam - Physical Exam Appears: Non-toxic, No Acute Distress Skin: Normal Color, Warm, Dry, No Rash Head: Atraumatic, Normacephalic Eye(s): bilateral: Normal Inspection, PERRL, EOMI Oral Mucosa: Moist Chest: Symmetrical Cardiovascular: Rhythm Regular Respiratory: Normal Breath Sounds, No Rales, No Rhonchi, No Wheezing Gastrointestinal/Abdominal: Bowel Sounds (active), Soft, Tenderness (LUQ, epigastric), No Distention, No Guarding, No Rebound Back: Normal Inspection, No CVA Tenderness Extremity: Normal ROM, Capillary Refill (< 2 sec. ), No Swelling Neurological/Psych: Oriented x3, Normal Speech, Normal Motor Gait: Steady ED Course And Treatment - Laboratory Results Result Diagrams: 01/15/17 13:08 01/15/17 13:08 ECG: Interpreted By Me, Viewed By Me ECG Rhythm: Sinus Rhythm Rate From EC O2 Sat by Pulse Oximetry: 99 (RA) Pulse Ox Interpretation: Normal - CT Scan/US RUQ ULTRASOUND Other Rad Studies (CT/US): Read By Radiologist, Radiology Report Reviewed CT/US Interpretation: FINDINGS: LIVER: Measures 16.3 cm in length. Echogenic liver may be seen in setting of hepatic parenchymal disease or fatty infiltration. . No focal hepatic mass identified. The main portal vein appears patent with normal directional flow. No intrahepatic bile duct dilatation. GALLBLADDER: Gallstones. Gallbladder sludge. No gallbladder wall thickening or pericholecystic edema. Negative sonographic Suazo's sign as assessed by the bow machine operator. COMMON BILE DUCT: Measures 4 mm. PANCREAS: Not well- visualized. RIGHT KIDNEY: Measures 10.8 x 4.3 x 5.0 cm. No hydronephrosis or obstructing calculus identified. AORTA: Limited visualization appears grossly unremarkable. IVC: Limited visualization appears grossly unremarkable. OTHER FINDINGS: None . IMPRESSION: Gallstones. Gallbladder sludge. Echogenic liver may be seen in setting of hepatic parenchymal disease or fatty infiltration. Progress Note: EKG, bloodwork ordered. Morphine 2mg, Pepcid, Toradol, IVFs ordered. Abdominal ultrasound ordered and reviewed. 15:53 - CT abd/pelvis ordered. Case discussed with Dr. Gusman, patient still in pain. Dr. Gusman agrees to accept patient for intractable abdominal pain and requesting Dr. Mendez as surgery consult. Disposition - Disposition Disposition: HOSPITALIZED Disposition Time: 19:00 Condition: FAIR - Clinical Impression Clinical Impression: Intractable abdominal pain, Cholelithiases - PA / SHAPER MACHINE HAND / Resident Statement MD/DO has reviewed & agrees with the documentation as recorded. - Scribe Statement The provider has reviewed the documentation as recorded by the Enedelia Jean-Baptiste All medical record entries made by the Enedelia were at my direction and personally dictated by me. I have reviewed the chart and agree that the record accurately reflects my personal performance of the history, physical exam, medical decision making, and the department course for this patient. I have also personally directed, reviewed, and agree with the discharge instructions and disposition.
[2017-01-15] MEDS ORDERED: Sodium Chloride 0.9% 1,000 ML IV ONE (12:41)
[2017-01-15] MEDS ORDERED: Sodium Chloride 0.9% 1,000 ML ONE (13:09)
[2017-01-15 13:15] LABS: BASO % 0.6 % (0.0-2.0); EOS % 0.5 % (0.0-4.0); HEMATOCRIT 38.6 % (35.0-51.0); LYMPH # 1.3 K/uL (1.0-4.3); LYMPH % 22.6 % (20.0-40.0); MEAN CELL VOLUME 89.2 fL (80.0-94.0); MEAN CORPUSCULAR HEMOGLOBIN 31.6 pg (27.0-31.0); MEAN CORPUSCULAR HGB CONC 35.4 g/dL (33.0-37.0); MEAN PLATELET VOLUME 8.6 fL (7.2-11.7); MONO # 0.6 K/uL (0.0-0.8); MONO % 9.7 % (0.0-10.0); NRBC % 0.1 % (0.0-2.0); WHITE BLOOD COUNT 5.7 K/uL (4.8-10.8)
[2017-01-15 13:20] LABS: CHLORIDE 99 mmol/L (98-107); SODIUM 142 mmol/L (132-148)
[2017-01-15 13:23] LABS: ALB/GLOB RATIO 1.6 (1.0-2.1); ALKALINE PHOSPHATASE 43 U/L (38-126); ALT/SGPT 32 U/L (21-72); AST/SGOT 14 U/L (17-59); BILIRUBIN,TOTAL 0.5 mg/dL (0.2-1.3); BLOOD UREA NITROGEN 19 mg/dL (9-20); CARBON DIOXIDE 29 mmol/L (22-30); GFR AFRICAN-AMERICAN > 60; TOTAL PROTEIN 6.4 g/dL (6.3-8.3)
[2017-01-15 13:24] LABS: CALCIUM 9.3 mg/dl (8.6-10.4); GLUCOSE,RANDOM 105 mg/dL (75-110)
[2017-01-15 13:38] LABS: RBC URINE < 1 /hpf (0-3); URINE BILIRUBIN NEGATIVE (NEGATIVE); URINE BLOOD NEGATIVE (NEGATIVE); URINE COLOR Yellow (YELLOW); URINE GLUCOSE (UA) NORMAL (Normal); URINE KETONE NEGATIVE (NEGATIVE); URINE LEUKOCYTE ESTERASE NEG Leu/uL (Negative); URINE PROTEIN NEGATIVE (NEGATIVE); URINE UROBILINOGEN NORMAL mg/dL (0.2-1.0); WBC URINE < 1 /hpf (0-5)
--- NOTE | 2017-01-15 15:15 | US ---
HISTORY: epigastric/RUQ abd pain, hx of gallstone COMPARISON: CT abdomen and pelvis with contrast performed 01/05/17 TECHNIQUE: Sonographic evaluation of the right upper quadrant of the abdomen. FINDINGS: LIVER: Measures 16.3 cm in length. Echogenic liver may be seen in setting of hepatic parenchymal disease or fatty infiltration. . No focal hepatic mass identified. The main portal vein appears patent with normal directional flow. No intrahepatic bile duct dilatation. GALLBLADDER: Gallstones. Gallbladder sludge. No gallbladder wall thickening or pericholecystic edema. Negative sonographic Suazo's sign as assessed by the traffic police officer. COMMON BILE DUCT: Measures 4 mm. PANCREAS: Not well-visualized. RIGHT KIDNEY: Measures 10.8 x 4.3 x 5.0 cm. No hydronephrosis or obstructing calculus identified. AORTA: Limited visualization appears grossly unremarkable. IVC: Limited visualization appears grossly unremarkable. OTHER FINDINGS: None . IMPRESSION: Gallstones. Gallbladder sludge. Echogenic liver may be seen in setting of hepatic parenchymal disease or fatty infiltration.
[2017-01-15] MEDS ORDERED: Iohexol 350mg/ml 100 ML ONE (17:03)
--- NOTE | 2017-01-15 19:08 | CT ---
PROCEDURE: CT Abdomen and Pelvis with contrast HISTORY: Left sided abd pain, vomiting COMPARISON: Comparison is made to the previous study dated 01/05/2017 TECHNIQUE: Contrast dose: 100 mL of Visipaque 320. Axial and reformatted coronal and sagittal CT images of the abdomen and pelvis were obtained after IV contrast administration. Radiation dose: Total exam DLP = 403.06 mGy-cm. This CT exam was performed using one or more of the following dose reduction techniques: Automated exposure control, adjustment of the mA and/or kV according to patient size, and/or use of iterative reconstruction technique. FINDINGS: LOWER THORAX: Unremarkable. LIVER: Unremarkable. No gross lesion or ductal dilatation. GALLBLADDER AND BILE DUCTS: The gallbladder is mildly distended contains multiple gallstones without CT evidence of acute cholecystitis. PANCREAS: Unremarkable. No gross lesion or ductal dilatation. SPLEEN: Unremarkable. ADRENALS: Unremarkable. No mass. KIDNEYS AND URETERS: Unremarkable. No hydronephrosis. No solid mass. VASCULATURE: Unremarkable. No aortic aneurysm. BOWEL: Few scattered diverticulosis seen without evidence of diverticulitis. No evidence of high-grade bowel obstruction. APPENDIX: No evidence of appendicitis. PERITONEUM: Unremarkable. No free fluid. No free air. LYMPH NODES: Unremarkable. No enlarged lymph nodes. BLADDER: Mild urinary bladder wall thickening. REPRODUCTIVE: The prostate is moderately enlarged. BONES: No acute fracture. OTHER FINDINGS: None. IMPRESSION: No evidence of acute pathology in the abdomen and pelvis. No evidence of significant interval change compared to the previous exam.
--- NOTE | 2017-01-15 21:42 | CP.PCM.CON ---
History of Present Illness - History of Present Illness History of Present Illness: General Surgery consult note for Dr. Mendez Consulted for: abdominal pain, cholelithiasis Patient is a 61M with PMH including GERD, DM, HTN, and gastric polyps who presents with dull LUQ and epigastric abdominal pain for 1 year's duration. Patient states that pain was mild at first but has increased in intensity and duration, to the point that he doesn't eat d/t the pain. Eating makes the pain worse, nothing aleviates it, it is associated with nausea but no vomiting. Patient was here 10 days ago with similar symptoms, found to have gall stones on CT scan, but was discharged to follow up outpatiently. Patient states that pain has become worse and so he came to the ER. Reports chronic constipation, for which he takes amitiza and bentyl at home with inconsistent success. Last BM was yesterday and was normal color and consistency but small, no blood. Denies passing gas per rectum today. Patient was given pepcid, toradol, and 2gm of morphine in the ER and denies any pain or nausea currently. 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 absent: Fever - Cardiovascular Cardiovascular: absent: Chest Pain, Chest Pain at Rest, Chest Pain with Activity , Dyspnea, Dyspnea on Exertion - Respiratory Respiratory: absent: Cough, Dyspnea, Chest Congestion - Gastrointestinal Gastrointestinal: As Per HPI, Abdominal Pain, Heartburn. absent: Hematemesis, Hematochezia, Melena - Genitourinary Genitourinary: Difficulty Urinating. absent: Change in Urinary Stream, Dysuria , Hematuria, Pyuria - Musculoskeletal Musculoskeletal: Back Pain (lower back pain d/t injury), Numbness (left 4th and 5th finger). absent: Muscle Weakness, Stiffness - Neurological Neurological: Numbness (left 4th and 5th finger). absent: Dizziness, Tingling Past Patient History - Infectious Disease Hx of Infectious Diseases: None - Past Medical History & Family History Past Medical History?: Yes Past Family History: Reviewed and not pertinent - Past Social History Smoking Status: Never Smoked Alcohol: None Drugs: Denies - CARDIAC Hx Hypertension: Yes - PULMONARY Hx Pulmonary Embolism: Yes - NEUROLOGICAL Hx Seizures: Yes - HEENT Hx HEENT Problems: No - RENAL Hx Chronic Kidney Disease: No - ENDOCRINE/METABOLIC Hx Endocrine Disorders: Yes Hx Diabetes Mellitus Type 2: Yes - HEMATOLOGICAL/ONCOLOGICAL Hx Human Immunodeficiency Virus (HIV): No - INTEGUMENTARY Hx Dermatological Problems: No - MUSCULOSKELETAL/RHEUMATOLOGICAL Hx Musculoskeletal Disorders: No Hx Falls: No - GASTROINTESTINAL Hx Gastrointestinal Disorders: No - GENITOURINARY/GYNECOLOGICAL Hx Sexually Transmitted Disorders: No - PSYCHIATRIC Hx Anxiety: Yes Hx Bipolar Disorder: Yes Hx Depression: Yes Hx Schizophrenia: Yes (paranoid type) Hx Substance Use: No - SURGICAL HISTORY Hx Tonsillectomy: Yes - ANESTHESIA Hx Anesthesia: Yes Hx Anesthesia Reactions: No Hx Malignant Hyperthermia: No Meds Allergies/Adverse Reactions: Allergies Allergy/AdvReac Type Severity Reaction Status Date / Time quetiapine Allergy Severe SHORTNESS Verified 10/24/16 09:14 OF BREATH haloperidol [From Haldol] AdvReac SHORTNESS Verified 10/24/16 09:14 OF BREATH haloperidol lactate AdvReac SHORTNESS Verified 10/24/16 09:14 [From Haldol] OF BREATH lithium AdvReac Verified 10/24/16 09:14 - Medications Medications: Current Medications Olanzapine (Zyprexa) 10 mg PO HS LISA Zolpidem Tartrate (Ambien) 10 mg PO HS PRN PRN Reason: Insomnia Physical Exam - Constitutional Appears: Non-toxic, No Acute Distress, Older Than Stated Age - Head Exam Head Exam: ATRAUMATIC, NORMOCEPHALIC - Eye Exam Eye Exam: Normal appearance. absent: Conjunctival injection, Scleral icterus - ENT Exam ENT Exam: Mucous Membranes Moist, Normal Oropharynx - Respiratory Exam Respiratory Exam: NORMAL BREATHING PATTERN. absent: Accessory Muscle Use, Respiratory Distress - Cardiovascular Exam Cardiovascular Exam: RRR - GI/Abdominal Exam GI & Abdominal Exam: Soft. absent: Distended, Guarding, Rigid, Tenderness Additional comments: negative chaney's, negative rovsings, negative mcburney's point tenderness - Extremities Exam Extremities exam: Negative for: calf tenderness, pedal edema, pedal pulses present - Back Exam Back exam: absent: CVA tenderness (L), CVA tenderness (R) - Neurological Exam Neurological exam: Alert, Oriented x3 - Psychiatric Exam Psychiatric exam: Normal Affect, Normal Mood - Skin Skin Exam: Dry, Intact, Normal Color, Warm Results - Vital Signs Recent Vital Signs: Last Vital Signs Temp 98.1 F 01/15/17 21:11 Pulse 86 01/15/17 21:11 Resp 18 01/15/17 21:11 BP 159/89 H 01/15/17 21:11 Pulse Ox 99 01/15/17 21:11 - Labs Result Diagrams: 01/15/17 13:08 01/15/17 13:08 Labs: Laboratory Results - last 24 hr 01/15/17 01/15/17 01/15/17 13:08 13:08 13:08 WBC 5.7 RBC 4.32 L Hgb 13.7 Hct 38.6 MCV 89.2 MCH 31.6 H MCHC 35.4 RDW 14.0 Plt Count 171 MPV 8.6 Neut % (Auto) 66.6 Lymph % (Auto) 22.6 [place] % (Auto) 9.7 Eos % (Auto) 0.5 Baso % (Auto) 0.6 Neut # 3.8 Lymph # 1.3 [place] # 0.6 Eos # 0.0 Baso # 0.0 Sodium 142 Potassium 4.0 Chloride 99 Carbon Dioxide 29 Anion Gap 17 BUN 19 Creatinine 0.8 Est GFR ( Amer) > 60 Est GFR (Non-Af Amer) > 60 Random Glucose 105 Calcium 9.3 Total Bilirubin 0.5 AST 14 L ALT 32 Alkaline Phosphatase 43 Troponin I < 0.0120 Total Protein 6.4 Albumin 3.9 Globulin 2.5 Albumin/Globulin Ratio 1.6 Lipase 45 Urine Color Urine Clarity Urine pH Ur Specific [place] Urine Protein Urine Glucose (UA) Urine Ketones Urine Blood Urine Nitrate Urine Bilirubin Urine Urobilinogen Ur Leukocyte Esterase Urine WBC (Auto) Urine RBC (Auto) 01/15/17 13:23 WBC RBC Hgb Hct MCV MCH MCHC RDW Plt Count MPV Neut % (Auto) Lymph % (Auto) [place] % (Auto) Eos % (Auto) Baso % (Auto) Neut # Lymph # [place] # Eos # Baso # Sodium Potassium Chloride Carbon Dioxide Anion Gap BUN Creatinine Est GFR ( Amer) Est GFR (Non-Af Amer) Random Glucose Calcium Total Bilirubin AST ALT Alkaline Phosphatase Troponin I Total Protein Albumin Globulin Albumin/Globulin Ratio Lipase Urine Color Yellow Urine Clarity Clear Urine pH 6.0 Ur Specific [place] 1.019 Urine Protein Negative Urine Glucose (UA) Normal Urine Ketones Negative Urine Blood Negative Urine Nitrate Negative Urine Bilirubin Negative Urine Urobilinogen Normal Ur Leukocyte Esterase Neg Urine WBC (Auto) < 1 Urine RBC (Auto) < 1 Assessment & Plan - Assessment and Plan (Free Text) Assessment: 61M with chronic LUQ/epigastric pain with cholelithiasis, possible biliary colic US: cholelithiasis, no signs of cholecystitis or choledocholithiasis CT: distended GB with cholelithiasis, significant amount of stool in the right colon, no significant change from 10 days ago Plan: - Location of the pain and symptoms, ultrasound findings, and labwork are not convincingly indicative of symptomatic cholilithiasis or cholecystitis. Will order HIDA - NPO - IVF - pain and nausea medication PRN - hold PO anticoagulation - trend CBC and CMP - Possible OR for cholecystectomy this hospitalization depending on imaging Thank you for this consult Further recs per Dr. Vanessa Anderson, PGY2
[2017-01-15] MEDS ORDERED: Morphine 4 MG/ML VIAL IVP PRN (22:02)
[2017-01-15] MEDS: Lactated Ringer's 1,000 ML IV SCH (22:09)
[2017-01-16 07:57] LABS: INR 1.1
[2017-01-16 07:59] LABS: BASO % 0.8 % (0.0-2.0); EOS # 0.1 K/uL (0.0-0.7); EOS % 1.2 % (0.0-4.0); HEMATOCRIT 37.1 % (35.0-51.0); LYMPH # 1.6 K/uL (1.0-4.3); LYMPH % 31.8 % (20.0-40.0); MEAN CELL VOLUME 89.8 fL (80.0-94.0); MEAN CORPUSCULAR HEMOGLOBIN 31.6 pg (27.0-31.0); MEAN CORPUSCULAR HGB CONC 35.2 g/dL (33.0-37.0); MEAN PLATELET VOLUME 8.4 fL (7.2-11.7); MONO # 0.5 K/uL (0.0-0.8); MONO % 11.3 % (0.0-10.0); NRBC % 0.1 % (0.0-2.0); RED CELL DISTRIBUTION WIDTH 13.7 % (11.5-14.5); WHITE BLOOD COUNT 4.9 K/uL (4.8-10.8)
--- NOTE | 2017-01-16 08:29 | CP.PCM.PN ---
Subjective - Date & Time of Evaluation Date of Evaluation: 01/16/17 Time of Evaluation: 08:28 - Subjective Subjective: hida pending took eliquis sunday will hold OR Objective - Vital Signs/Intake and Output Vital Signs (last 24 hours): Temp Pulse Resp BP Pulse Ox 97.6 F 65 20 118/72 98 01/15/17 23:12 01/15/17 23:12 01/15/17 23:12 01/15/17 23:12 01/15/17 23:12 Intake and Output: 01/16/17 01/16/17 06:59 18:59 Intake Total 800 Output Total 450 Balance 350 - Medications Medications: Current Medications Lactated Ringer's (Lactated Ringer's) 1,000 mls @ 100 mls/hr IV .Q10H LISA Last Admin: 01/15/17 22:09 Dose: 100 mls/hr Metoclopramide HCl (Reglan) 10 mg IVP Q6 PRN PRN Reason: Nausea/Vomiting Morphine Sulfate (Morphine) 4 mg IVP Q4 PRN PRN Reason: Pain, moderate (4-7) Olanzapine (Zyprexa) 10 mg PO HS LISA Last Admin: 01/15/17 22:22 Dose: 10 mg Pantoprazole Sodium (Protonix Inj) 40 mg IVP Q12H LISA Last Admin: 01/15/17 22:11 Dose: 40 mg Zolpidem Tartrate (Ambien) 5 mg PO HS PRN PRN Reason: Insomnia Last Admin: 01/15/17 22:06 Dose: 5 mg - Labs Labs: 01/16/17 07:43 01/15/17 13:08 PT 12.9 SECONDS (9.7-12.2) H 01/16/17 07:43 INR 1.1 01/16/17 07:43 APTT 33 SECONDS (21-34) 01/16/17 07:43
[2017-01-16 08:34] LABS: CHLORIDE 98 mmol/L (98-107)
[2017-01-16 08:35] LABS: POTASSIUM 3.8 mmol/L (3.6-5.2); SODIUM 140 mmol/L (132-148)
[2017-01-16 08:37] LABS: ALB/GLOB RATIO 1.5 (1.0-2.1); ALKALINE PHOSPHATASE 52 U/L (38-126); AST/SGOT 16 U/L (17-59); BILIRUBIN,TOTAL 0.8 mg/dL (0.2-1.3); BLOOD UREA NITROGEN 14 mg/dL (9-20); CARBON DIOXIDE 29 mmol/L (22-30); GFR AFRICAN-AMERICAN > 60; TOTAL PROTEIN 6.1 g/dL (6.3-8.3)
[2017-01-16 08:38] LABS: ALT/SGPT 23 U/L (21-72); CALCIUM 9.2 mg/dl (8.6-10.4); GLUCOSE,RANDOM 89 mg/dL (75-110)
[2017-01-16] MEDS: Lactated Ringer's 1,000 ML IV SCH ×3 (09:05→21:41)
--- NOTE | 2017-01-16 09:53 | RAD ---
Chest x-ray single frontal view History: Preoperative evaluation. Comparison: 01/05/2017 Findings: Hyperinflation suggestive for COPD and or emphysematous changes. Few small nodular densities projecting over the left lung apex and bilateral hilar regions may represent vessels on end versus small granulomas and or nodules. No gross focal infiltrate or effusion. Heart size within normal limits. Degenerative changes in the spine and shoulders. Distended loops of small bowel in the upper abdomen. Impression: No focal infiltrate or effusion.
--- NOTE | 2017-01-16 12:19 | NM ---
PROCEDURE: Nuclear Medicine Hepatobiliary Scan HISTORY: r/o cholecystitis COMPARISON: January 15, 2017. CT abdomen and pelvis. TECHNIQUE: 5.2 mCi of technetium 99m Mebrofenin was administered intravenously. Planar images of the abdomen were obtained at 5 min intervals to 60 mins. Delayed images were also obtained. FINDINGS: LIVER: Timely and homogenous uptake. COMMON BILE DUCT: identified at 10 mins. GALLBLADDER: identified at 10 mins. SMALL BOWEL: Identified at 15 mins. IMPRESSION: Normal Hepatobiliary Scan. The cystic duct is patent.
--- NOTE | 2017-01-16 18:02 | CP.PCM.HP ---
Past Patient History - Infectious Disease Hx of Infectious Diseases: None - Past Medical History & Family History Past Medical History?: Yes Past Family History: Reviewed and not pertinent - Past Social History Smoking Status: Never Smoked Alcohol: None Drugs: Denies - CARDIAC Hx Hypertension: Yes - PULMONARY Hx Pulmonary Embolism: Yes - NEUROLOGICAL Hx Seizures: Yes - HEENT Hx HEENT Problems: No - RENAL Hx Chronic Kidney Disease: No - ENDOCRINE/METABOLIC Hx Endocrine Disorders: Yes Hx Diabetes Mellitus Type 2: Yes - HEMATOLOGICAL/ONCOLOGICAL Hx Human Immunodeficiency Virus (HIV): No - INTEGUMENTARY Hx Dermatological Problems: No - MUSCULOSKELETAL/RHEUMATOLOGICAL Hx Musculoskeletal Disorders: No Hx Falls: No - GASTROINTESTINAL Hx Gastrointestinal Disorders: No - GENITOURINARY/GYNECOLOGICAL Hx Sexually Transmitted Disorders: No - PSYCHIATRIC Hx Anxiety: Yes Hx Bipolar Disorder: Yes Hx Depression: Yes Hx Schizophrenia: Yes (paranoid type) Hx Substance Use: No - SURGICAL HISTORY Hx Tonsillectomy: Yes - ANESTHESIA Hx Anesthesia: Yes Hx Anesthesia Reactions: No Hx Malignant Hyperthermia: No Meds Allergies/Adverse Reactions: Allergies Allergy/AdvReac Type Severity Reaction Status Date / Time quetiapine Allergy Severe SHORTNESS Verified 10/24/16 09:14 OF BREATH haloperidol [From Haldol] AdvReac SHORTNESS Verified 10/24/16 09:14 OF BREATH haloperidol lactate AdvReac SHORTNESS Verified 10/24/16 09:14 [From Haldol] OF BREATH lithium AdvReac Verified 10/24/16 09:14 Results - Vital Signs Recent Vital Signs: Last Vital Signs Temp 98.3 F 01/16/17 15:00 Pulse 101 H 01/16/17 15:00 Resp 20 01/16/17 15:00 BP 140/80 01/16/17 15:03 Pulse Ox 97 01/16/17 15:00 - Labs Result Diagrams: 01/16/17 07:43 01/16/17 07:43 Labs: Laboratory Results - last 24 hr 01/15/17 01/15/17 01/16/17 13:08 21:56 07:16 WBC RBC Hgb Hct MCV MCH MCHC RDW Plt Count MPV Neut % (Auto) Lymph % (Auto) [place] % (Auto) Eos % (Auto) Baso % (Auto) Neut # Lymph # [place] # Eos # Baso # PT INR APTT Sodium Potassium Chloride Carbon Dioxide Anion Gap BUN Creatinine Est GFR ( Amer) Est GFR (Non-Af Amer) POC Glucose (mg/dL) 95 103 Random Glucose Calcium Total Bilirubin AST ALT Alkaline Phosphatase Total Protein Albumin Globulin Albumin/Globulin Ratio Lipase 45 01/16/17 01/16/17 01/16/17 07:43 07:43 07:43 WBC 4.9 RBC 4.13 L Hgb 13.0 Hct 37.1 MCV 89.8 MCH 31.6 H MCHC 35.2 RDW 13.7 Plt Count 175 MPV 8.4 Neut % (Auto) 54.9 Lymph % (Auto) 31.8 [place] % (Auto) 11.3 H Eos % (Auto) 1.2 Baso % (Auto) 0.8 Neut # 2.7 Lymph # 1.6 [place] # 0.5 Eos # 0.1 Baso # 0.0 PT 12.9 H INR 1.1 APTT 33 Sodium 140 Potassium 3.8 Chloride 98 Carbon Dioxide 29 Anion Gap 16 BUN 14 Creatinine 0.9 Est GFR ( Amer) > 60 Est GFR (Non-Af Amer) > 60 POC Glucose (mg/dL) Random Glucose 89 Calcium 9.2 Total Bilirubin 0.8 AST 16 L ALT 23 Alkaline Phosphatase 52 Total Protein 6.1 L Albumin 3.7 Globulin 2.4 Albumin/Globulin Ratio 1.5 Lipase 01/16/17 01/16/17 11:16 15:51 WBC RBC Hgb Hct MCV MCH MCHC RDW Plt Count MPV Neut % (Auto) Lymph % (Auto) [place] % (Auto) Eos % (Auto) Baso % (Auto) Neut # Lymph # [place] # Eos # Baso # PT INR APTT Sodium Potassium Chloride Carbon Dioxide Anion Gap BUN Creatinine Est GFR ( Amer) Est GFR (Non-Af Amer) POC Glucose (mg/dL) 108 119 H Random Glucose Calcium Total Bilirubin AST ALT Alkaline Phosphatase Total Protein Albumin Globulin Albumin/Globulin Ratio Lipase
[2017-01-17] MEDS: Lactated Ringer's 1,000 ML IV SCH ×2 (04:00→14:11)
[2017-01-17] MEDS: POLYETHYLENE GLYCOL 3350 17 GM/Dose PACKET PO SCH ×2 (09:23→18:07)
[2017-01-17] MEDS ORDERED: Bisacodyl 5mg EC Tab PO ONE (09:25)
--- NOTE | 2017-01-17 09:30 | CP.PCM.CON ---
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 Patient describes progressive, sharp left upper abdominal pain over the last year. He has had multiple CT A/P and Ultrasounds showing gallstones and constipation. Multiple prior admissions with last discharge October 2016 for abdominal pain and prior workup for weight loss in June 2016 having EGD and colonoscopy showing no acute pathology. Recent ER visit two weeks ago for similar complaints but decided to go home and did not accept recommendation for observation admission. He states over the last two days he has noted sudden severe left upper abdomen pain worsened by eating leading to loss of appetite and nausea. Denies fever, chills, sweats, vomiting, hematemesis, bloating, indigestion, acid reflux, heartburn, diarrhea, melena, or hematochezia. Notes bowel habit being hard stools with straining every two to three days. Prior EGd and colonoscopy 06/2016 showed GEJ two islands of salmon colored mucosa with max length of 1cm with biopsy showing mild inflammation and negative for dysplasia/ metaplasia and five sessile tubular to tubulovillous adenomas from cecum to descending colon ranging 5-10mm in size. Family-denies colon cancer Social- denies tobacco, alcohol, illicit drug use Surgery-tonsillectomy Review of Systems - Review of Systems Review of Systems: 12-point review of systems negative except for as above Past Patient History - Infectious Disease Hx of Infectious Diseases: None - Past Medical History & Family History Past Medical History?: Yes Past Family History: Reviewed and not pertinent - Past Social History Smoking Status: Never Smoked Alcohol: None Drugs: Denies - CARDIAC Hx Hypertension: Yes - PULMONARY Hx Pulmonary Embolism: Yes - NEUROLOGICAL Hx Seizures: Yes - HEENT Hx HEENT Problems: No - RENAL Hx Chronic Kidney Disease: No - ENDOCRINE/METABOLIC Hx Endocrine Disorders: Yes Hx Diabetes Mellitus Type 2: Yes - HEMATOLOGICAL/ONCOLOGICAL Hx Human Immunodeficiency Virus (HIV): No - INTEGUMENTARY Hx Dermatological Problems: No - MUSCULOSKELETAL/RHEUMATOLOGICAL Hx Musculoskeletal Disorders: No Hx Falls: No - GASTROINTESTINAL Hx Gastrointestinal Disorders: No - GENITOURINARY/GYNECOLOGICAL Hx Sexually Transmitted Disorders: No - PSYCHIATRIC Hx Anxiety: Yes Hx Bipolar Disorder: Yes Hx Depression: Yes Hx Schizophrenia: Yes (paranoid type) Hx Substance Use: No - SURGICAL HISTORY Hx Tonsillectomy: Yes - ANESTHESIA Hx Anesthesia: Yes Hx Anesthesia Reactions: No Hx Malignant Hyperthermia: No Meds Allergies/Adverse Reactions: Allergies Allergy/AdvReac Type Severity Reaction Status Date / Time quetiapine Allergy Severe SHORTNESS Verified 10/24/16 09:14 OF BREATH haloperidol [From Haldol] AdvReac SHORTNESS Verified 10/24/16 09:14 OF BREATH haloperidol lactate AdvReac SHORTNESS Verified 10/24/16 09:14 [From Haldol] OF BREATH lithium AdvReac Verified 10/24/16 09:14 - Medications Medications: Current Medications Bisacodyl (Dulcolax) 5 mg PO ONCE ONE Stop: 01/17/17 09:26 Dicyclomine HCl (Bentyl) 10 mg PO TID [facility] Glycerin (Glycerin Adult Suppository) 1 sup VA HS [facility] Last Admin: 01/16/17 21:12 Dose: 1 sup Lactated Ringer's (Lactated Ringer's) 1,000 mls @ 100 mls/hr IV .Q10H [facility] Last Admin: 01/17/17 04:00 Dose: Not Given Lorazepam (Ativan) 2 mg PO TID PRN PRN Reason: Anxiety Last Admin: 01/17/17 09:09 Dose: 2 mg Metoclopramide HCl (Reglan) 10 mg IVP Q6 PRN PRN Reason: Nausea/Vomiting Metoprolol Tartrate (Lopressor) 50 mg PO Q12 [facility] Last Admin: 01/17/17 09:09 Dose: 50 mg Mineral Oil (Fleet Mineral Oil Enema) 135 ml RC ONCE ONE Stop: 01/17/17 09:26 Morphine Sulfate (Morphine) 4 mg IVP Q4 PRN PRN Reason: Pain, moderate (4-7) Olanzapine (Zyprexa) 10 mg PO HS [facility] Last Admin: 01/16/17 21:13 Dose: 10 mg Ondansetron HCl (Zofran Inj) 4 mg IVP Q6H PRN PRN Reason: Nausea/Vomiting Pantoprazole Sodium (Protonix Inj) 40 mg IVP Q12H [facility] Last Admin: 10/03/17 21:17 Dose: 40 mg Polyethylene Glycol (Miralax) 17 gm PO BID LISA Zolpidem Tartrate (Ambien) 5 mg PO HS PRN PRN Reason: Insomnia Last Admin: 01/16/17 21:12 Dose: 5 mg Physical Exam - Constitutional Appears: Non-toxic, No Acute Distress - Head Exam Head Exam: ATRAUMATIC, NORMOCEPHALIC - Eye Exam Eye Exam: EOMI, PERRL Pupil Exam: PERRL. absent: Miosis, Mydriatic - ENT Exam ENT Exam: Mucous Membranes Moist, Normal Oropharynx - Neck Exam Neck exam: Positive for: Full Rom, Normal Inspection - Respiratory Exam Respiratory Exam: Clear to Auscultation Bilateral. absent: Rales, Rhonchi, Wheezes - Cardiovascular Exam Cardiovascular Exam: RRR, +S1, +S2. absent: Gallop, Rubs - GI/Abdominal Exam GI & Abdominal Exam: Normal Bowel Sounds, Soft, Tenderness. absent: Distended, Firm, Guarding, Organomegaly, Rebound, Rigid Additional comments: LUQ tenderness to palpation - Extremities Exam Extremities exam: Positive for: normal inspection. Negative for: pedal edema - Neurological Exam Neurological exam: Alert - Psychiatric Exam Psychiatric exam: Anxious, Normal Affect, Normal Mood - Skin Skin Exam: Dry, Intact, Normal Color, Warm Results - Vital Signs Recent Vital Signs: Last Vital Signs Temp 98.0 F 01/17/17 08:19 Pulse 90 01/17/17 08:19 Resp 20 01/17/17 08:19 BP 150/80 01/17/17 08:49 Pulse Ox 99 01/17/17 08:19 - Labs Result Diagrams: 01/16/17 07:43 01/16/17 07:43 Labs: Laboratory Results - last 24 hr 01/16/17 01/16/17 01/16/17 11:16 15:51 21:18 POC Glucose (mg/dL) 108 119 H 156 H 01/17/17 07:12 POC Glucose (mg/dL) 110 Assessment & Plan - Assessment and Plan (Free Text) Assessment: 61 year old male with history of seizures, BiPolar disorder, Depression, Anxiety , Hypertension, Diabetes, 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 Active treatment of abdominal pain, imaging showing constipation and cholelithiasis with normal HIDA scan. Prior EGd and colonoscopy 06/2016 showed GEJ two islands of salmon colored mucosa with max length of 1cm and five sessile tubular to tubulovillous adenomas from cecum to descending colon ranging 5-10mm in size. Plan: >surgery managing- HIDA scan negative >cholecystectomy today >bowel regimen-Miralax BID >Dulcolax and enema x1 >supportive care: PPI, antiemetics >reviewed prior CT imaging with Radiology- 1cm pancreatic cyst noted- present as well 11/2015 and calcified lymph node vs granuloma- shin hepatis or gastrohepatic ligament >outpatient follow up >will follow clinical course <Nicolas Brizuela - Last Filed: 01/17/17 16:08> Meds - Medications Medications: Current Medications Dicyclomine HCl (Bentyl) 10 mg PO TID [facility] Last Admin: 01/17/17 13:16 Dose: Not Given Glycerin (Glycerin Adult Suppository) 1 sup VA HS [facility] Last Admin: 01/16/17 21:12 Dose: 1 sup Lactated Ringer's (Lactated Ringer's) 1,000 mls @ 100 mls/hr IV .Q10H [facility] Last Admin: 01/17/17 14:11 Dose: 100 mls/hr Ketorolac Tromethamine (Toradol) 15 mg IVP Q6 PRN PRN Reason: Pain, moderate (4-7) Last Admin: 01/17/17 15:15 Dose: 15 mg Lorazepam (Ativan) 2 mg PO TID PRN PRN Reason: Anxiety Last Admin: 01/17/17 09:09 Dose: 2 mg Metoclopramide HCl (Reglan) 10 mg IVP Q6 PRN PRN Reason: Nausea/Vomiting Last Admin: 01/17/17 15:19 Dose: 10 mg Metoprolol Tartrate (Lopressor) 50 mg PO Q12 [facility] Last Admin: 01/17/17 09:09 Dose: 50 mg Morphine Sulfate (Morphine) 4 mg IVP Q4 PRN PRN Reason: Pain, moderate (4-7) Olanzapine (Zyprexa) 10 mg PO HS [facility] Last Admin: 01/16/17 21:13 Dose: 10 mg Ondansetron HCl (Zofran Inj) 4 mg IVP Q6H PRN PRN Reason: Nausea/Vomiting Oxycodone/Acetaminophen (Percocet 5/325 Mg Tab) 1 tab PO Q4H PRN PRN Reason: Pain, severe (8-10) Stop: 01/20/17 14:16 Pantoprazole Sodium (Protonix Inj) 40 mg IVP Q12H LISA Last Admin: 01/17/17 09:22 Dose: 40 mg Polyethylene Glycol (Miralax) 17 gm PO BID LISA Last Admin: 01/17/17 09:23 Dose: Not Given Zolpidem Tartrate (Ambien) 5 mg PO HS PRN PRN Reason: Insomnia Last Admin: 01/16/17 21:12 Dose: 5 mg Results - Vital Signs Recent Vital Signs: Last Vital Signs Temp 98.1 F 01/17/17 16:03 Pulse 101 H 01/17/17 16:03 Resp 20 01/17/17 16:03 BP 172/85 H 01/17/17 16:03 Pulse Ox 99 01/17/17 16:03 - Labs Result Diagrams: 01/16/17 07:43 01/16/17 07:43 Labs: Laboratory Results - last 24 hr 01/16/17 01/17/17 01/17/17 21:18 07:12 13:08 POC Glucose (mg/dL) 156 H 110 139 H Attending/Attestation - Attestation I have personally seen and examined this patient.: Yes I have fully participated in the care of the patient.: Yes I have reviewed all pertinent clinical information: Yes Notes (Text): 01/17/17 16:06 61 year old male with h/o seizures, BiPolar disorder, Depression, Anxiety, HTN, DM, h/o DVT on eliquis admitted with abdominal pain. 1. Abdominal pain 2. Gallstones 3. Pancreatic cyst 4. Constipation Plan: -uncertain etiology of abdominal pain -went for cholecystectomy -will monitor post op -incidental small panc cyst noted, stable from prior imaging, no further eval at this time -recommend ppi daily and bowel regimen for constipation
[2017-01-17] MEDS ORDERED: Mineral Oil Enema 135 ml RC ONE (09:45)
[2017-01-17] MEDS ORDERED: ceFAZolin IV 1 gm in Dextrose 1 GM/50 ML BAG IVPB ONE (09:56)
[2017-01-17] MEDS ORDERED: Iohexol 240 (50 ml) ONE (09:57)
[2017-01-17] MEDS ORDERED: Propofol 10 mg/ml Inj (20 ML) ONE (10:44)
[2017-01-17] MEDS ORDERED: Lactated Ringer's 1,000 ML IV ONE ×2 (10:45→11:40)
[2017-01-17] MEDS ORDERED: Rocuronium 10 mg/ml (5 ml) ONE (11:14)
[2017-01-17] MEDS ORDERED: Neostigmine Methylsulfate 3mg/3ml Syringe IV ONE (11:36)
--- NOTE | 2017-01-17 11:58 | CARD ---
APPROVED REPORT EKG Measurement Heart [id number] XIx100 <Conclusion> Normal sinus rhythm Normal ECG
--- NOTE | 2017-01-17 12:14 | PCM.SURG1 ---
Surgeon's Initial Post Op Note - Surgeon's Notes Surgeon: Vanessa Wallboard Worker: Asif PGY3 Type of Anesthesia: General Endo Pre-Operative Diagnosis: Cholelithiasis Operative Findings: gallstones Post-Operative Diagnosis: cholelithaisis Operation Performed: laparoscopic cholecystectomy Specimen/Specimens Removed: gallbladder Estimated Blood Loss: EBL {In ML}: 20 Blood Products Given: N/A Drains Used: No Drains Post-Op Condition: Good Date of Surgery/Procedure: 01/17/17 Time of Surgery/Procedure: 12:14
[2017-01-17] MEDS ORDERED: HYDROmorphone 0.5 mg/0.5 ml ISec IVP PRN (12:18)
[2017-01-17] MEDS ORDERED: Labetalol 25mg/5ml Syringe IVP PRN (12:18)
[2017-01-17] MEDS ORDERED: Oxycodone/Acetaminophen 5/325 mg Tab PO PRN (14:15)
--- NOTE | 2017-01-17 15:42 | RAD ---
PROCEDURE: Intraoperative fluoroscopy HISTORY: CHOLECYSTITIS COMPARISON: Not available TECHNIQUE: Intraoperative fluoroscopy was provided for intraoperative cholangiography following cholecystectomy. Total time of fluoroscopy was 18.2 seconds. FINDINGS: Multiple fluoroscopic spot films are submitted. These demonstrate retrograde administration of contrast into the common bile duct intrahepatic biliary ducts. No filling defect is identified these views. Films are on file for review. IMPRESSION: Fluoroscopy provided.
[2017-01-17] MEDS ORDERED: Lactated Ringer's 500 ML IV ONE (21:00)
[2017-01-17 23:10] LABS: BASO % 0.3 % (0.0-2.0); EOS % 0.3 % (0.0-4.0); HEMATOCRIT 35.3 % (35.0-51.0); LYMPH # 1.2 K/uL (1.0-4.3); LYMPH % 12.4 % (20.0-40.0); MEAN CORPUSCULAR HEMOGLOBIN 31.7 pg (27.0-31.0); MEAN CORPUSCULAR HGB CONC 36.1 g/dL (33.0-37.0); MEAN PLATELET VOLUME 7.6 fL (7.2-11.7); MONO % 10.1 % (0.0-10.0); NRBC % 0.2 % (0.0-2.0); RED CELL DISTRIBUTION WIDTH 13.7 % (11.5-14.5); WHITE BLOOD COUNT 9.6 K/uL (4.8-10.8)
[2017-01-17 23:12] LABS: CHLORIDE 94 mmol/L (98-107); MEAN CELL VOLUME 87.7 fL (80.0-94.0); POTASSIUM 3.7 mmol/L (3.6-5.2); SODIUM 131 mmol/L (132-148)
[2017-01-17 23:14] LABS: ALB/GLOB RATIO 1.4 (1.0-2.1); AST/SGOT 32 U/L (17-59); BILIRUBIN,TOTAL 0.9 mg/dL (0.2-1.3); CARBON DIOXIDE 26 mmol/L (22-30); GFR AFRICAN-AMERICAN > 60; TOTAL PROTEIN 6.2 g/dL (6.3-8.3)
[2017-01-17 23:15] LABS: ALKALINE PHOSPHATASE 50 U/L (38-126); ALT/SGPT 46 U/L (21-72); BLOOD UREA NITROGEN 11 mg/dL (9-20); GLUCOSE,RANDOM 95 mg/dL (75-110)
[2017-01-18] MEDS ORDERED: Bisacodyl 5mg EC Tab PO ONE (06:00)
--- NOTE | 2017-01-18 06:01 | CP.PCM.PN ---
<Catalina Randall - Last Filed: 01/18/17 07:59> Subjective - Date & Time of Evaluation Date of Evaluation: 01/18/17 Time of Evaluation: 05:58 - Subjective Subjective: Gastroenterology Fellow/PGY5 Progress Note Patient notes improving abdominal pain, pain scale 3/10. Tolerating regular diet. Denies bowel movement with use of enema. Refused Miralax yesterday. A 12- point review of systems negative except for as above. Objective - Vital Signs/Intake and Output Vital Signs (last 24 hours): Temp Pulse Resp BP Pulse Ox 98.1 F 86 20 124/72 99 01/17/17 23:59 01/17/17 23:59 01/17/17 23:59 01/17/17 23:59 01/17/17 23:59 Intake and Output: 01/17/17 01/18/17 18:59 06:59 Intake Total 1700 Output Total 200 1000 Balance -200 700 - Medications Medications: Current Medications Dicyclomine HCl (Bentyl) 10 mg PO TID [facility] Last Admin: 01/17/17 18:06 Dose: 10 mg Glycerin (Glycerin Adult Suppository) 1 sup [place] HS [facility] Last Admin: 01/17/17 22:00 Dose: Not Given Heparin Sodium (Porcine) (Heparin) 5,000 units SC Q8 [facility] Lactated Ringer's (Lactated Ringer's) 1,000 mls @ 100 mls/hr IV .Q10H [facility] Last Admin: 01/17/17 14:11 Dose: 100 mls/hr Ketorolac Tromethamine (Toradol) 15 mg IVP Q6 PRN PRN Reason: Pain, moderate (4-7) Last Admin: 01/17/17 15:15 Dose: 15 mg Lorazepam (Ativan) 2 mg PO TID PRN PRN Reason: Anxiety Last Admin: 01/17/17 18:15 Dose: 2 mg Metoclopramide HCl (Reglan) 10 mg IVP Q6 PRN PRN Reason: Nausea/Vomiting Last Admin: 01/17/17 15:19 Dose: 10 mg Metoprolol Tartrate (Lopressor) 50 mg PO Q12 [facility] Last Admin: 01/17/17 22:01 Dose: 50 mg Morphine Sulfate (Morphine) 4 mg IVP Q4 PRN PRN Reason: Pain, moderate (4-7) Last Admin: 01/17/17 16:50 Dose: 4 mg Olanzapine (Zyprexa) 10 mg PO HS [facility] Last Admin: 01/17/17 22:01 Dose: 10 mg Ondansetron HCl (Zofran Inj) 4 mg IVP Q6H PRN PRN Reason: Nausea/Vomiting Oxycodone/Acetaminophen (Percocet 5/325 Mg Tab) 1 tab PO Q4H PRN PRN Reason: Pain, severe (8-10) Stop: 01/20/17 14:16 Pantoprazole Sodium (Protonix Inj) 40 mg IVP Q12H [facility] Last Admin: 01/17/17 22:01 Dose: 40 mg Polyethylene Glycol (Miralax) 17 gm PO BID [facility] Last Admin: 01/17/17 18:07 Dose: Not Given Zolpidem Tartrate (Ambien) 5 mg PO HS PRN PRN Reason: Insomnia Last Admin: 01/17/17 22:01 Dose: 5 mg - Labs Labs: 01/17/17 22:59 01/17/17 22:59 PT 12.9 SECONDS (9.7-12.2) H 01/16/17 07:43 INR 1.1 01/16/17 07:43 APTT 33 SECONDS (21-34) 01/16/17 07:43 - Constitutional Appears: Non-toxic, No Acute Distress - Head Exam Head Exam: ATRAUMATIC, NORMOCEPHALIC - Eye Exam Eye Exam: EOMI, PERRL Pupil Exam: PERRL. absent: Miosis, Mydriatic - ENT Exam ENT Exam: Mucous Membranes Moist, Normal Oropharynx - Neck Exam Neck Exam: Full ROM, Normal Inspection - Respiratory Exam Respiratory Exam: Clear to Ausculation Bilateral. absent: Rales, Rhonchi, Wheezes - Cardiovascular Exam Cardiovascular Exam: RRR, +S1, +S2. absent: Gallop, Rubs - GI/Abdominal Exam GI & Abdominal Exam: Soft, Tenderness, Normal Bowel Sounds. absent: Distended, Firm, Guarding, Rigid, Organomegaly, Rebound Additional comments: mild discomfort due to post-operative surgical sites - Extremities Exam Extremities Exam: Normal Inspection. 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 Active treatment of constipation and cholelithiasis POD1 ( 01/17) cholecystectomy. EGD and colonoscopy 06/2016 showed GEJ two islands of salmon colored mucosa with max 1cm length negative for Wiley's, mild esophagitis, and five sessile tubular to tubulovillous adenomas from cecum to descending colon ranging 5-10mm in size. Plan: >surgery managing >Miralax BID, titrate to at least 1 BM/day >Dulcolax x1 >supportive care: pain control, antiemetics >incidental pancreatic cyst noted on prior CT imaging >follow up outpatient <Shin Vu - Last Filed: 01/18/17 14:33> Objective - Vital Signs/Intake and Output Vital Signs (last 24 hours): Temp Pulse Resp BP Pulse Ox 98.3 F 97 H 20 145/78 98 01/18/17 07:47 01/18/17 07:47 01/18/17 07:47 01/18/17 07:47 01/18/17 07:47 Intake and Output: 01/18/17 01/18/17 06:59 18:59 Intake Total 1700 2600 Output Total 1000 2800 Balance 700 -200 - Medications Medications: Current Medications Dicyclomine HCl (Bentyl) 10 mg PO TID [facility] Last Admin: 01/18/17 10:25 Dose: 10 mg Glycerin (Glycerin Adult Suppository) 1 sup [place] HS [facility] Last Admin: 01/17/17 22:00 Dose: Not Given Heparin Sodium (Porcine) (Heparin) 5,000 units SC Q8 [facility] Lactated Ringer's (Lactated Ringer's) 1,000 mls @ 100 mls/hr IV .Q10H [facility] Last Admin: 01/18/17 11:54 Dose: Not Given Ketorolac Tromethamine (Toradol) 15 mg IVP Q6 PRN PRN Reason: Pain, moderate (4-7) Last Admin: 01/17/17 15:15 Dose: 15 mg Lorazepam (Ativan) 2 mg PO TID PRN PRN Reason: Anxiety Last Admin: 01/18/17 10:24 Dose: 2 mg Metoclopramide HCl (Reglan) 10 mg IVP Q6 PRN PRN Reason: Nausea/Vomiting Last Admin: 01/17/17 15:19 Dose: 10 mg Metoprolol Tartrate (Lopressor) 50 mg PO Q12 [facility] Last Admin: 01/18/17 10:20 Dose: 50 mg Olanzapine (Zyprexa) 10 mg PO HS [facility] Last Admin: 01/17/17 22:01 Dose: 10 mg Ondansetron HCl (Zofran Inj) 4 mg IVP Q6H PRN PRN Reason: Nausea/Vomiting Oxycodone/Acetaminophen (Percocet 5/325 Mg Tab) 1 tab PO Q4H PRN PRN Reason: Pain, severe (8-10) Stop: 01/20/17 14:16 Pantoprazole Sodium (Protonix Inj) 40 mg IVP Q12H [facility] Last Admin: 01/18/17 10:19 Dose: 40 mg Polyethylene Glycol (Miralax) 17 gm PO BID [facility] Last Admin: 01/18/17 10:20 Dose: 17 gm Zolpidem Tartrate (Ambien) 5 mg PO HS PRN PRN Reason: Insomnia Last Admin: 01/17/17 22:01 Dose: 5 mg - Labs Labs: 01/17/17 22:59 01/17/17 22:59 PT 12.9 SECONDS (9.7-12.2) H 01/16/17 07:43 INR 1.1 01/16/17 07:43 APTT 33 SECONDS (21-34) 01/16/17 07:43 Attending/Attestation - Attestation I have personally seen and examined this patient.: Yes I have fully participated in the care of the patient.: Yes I have reviewed all pertinent clinical information, including history, physical exam and plan: Yes Notes (Text): 01/18/17 14:30 I have seen and examined patient with GI fellow. No acute events overnight, his abdominal pain has improved compared to previous day. He denies nausea, vomiting, fever/chills. Tolerating PO diet without difficulty. He still has not had bowel movement but was refusing oral laxative therapy yesterday. Seizure disorder Bipolar disorder Depression / anxiety DVT on Eliquis DM / HTN Chronic constipation Abdominal pain, s/p cholecystectomy - Advance diet as tolerated - Suggest aggressive bowel regimen to prevent recurrent constipation - Follow up surgical recommendations regarding post operative management and urinary retention - From GI standpoint, ok to discharge patient home with subsequent outpatient follow up. Will sign off case, please reconsult as necessary, thank you.
--- NOTE | 2017-01-18 09:52 | OP ---
PROCEDURE DATE: 01/17/2017 PREOPERATIVE DIAGNOSES: Cholecystitis, cholelithiasis. POSTOPERATIVE DIAGNOSES: Cholecystitis, cholelithiasis. PROCEDURE CARRIED OUT: Laparoscopic cholecystectomy with C-arm cholangiogram. SURGEON: Eleazar Mendez Jr., MD AIRWORTHINESS SAFETY INSPECTOR: Dr. Gold. ANESTHESIOLOGIST: Dr. Muro. IDENTIFICATION: A 61-year-old man with abdominal pain, found to have gallstones. OPERATIVE FINDINGS: Cholangiogram carried out to the cystic duct showed free flow into the duodenum, visualization of the hepatic radicals. There was no evidence of other intraabdominal pathology. The liver was smooth without any nodularity. There was no evidence of any intraabdominal adhesions or other pathology on the laparoscopic exam. DESCRIPTION OF PROCEDURE: The patient was given general anesthesia and intravenous antibiotics. Venodyne boots were applied. An Avery trocar was inserted via cut-down technique in the umbilicus. Two additional 5-mm trocars were placed. The cystic duct and cystic artery were identified. After this had been done and obtaining a view of safety with the cystic duct and cystic artery being visualized in the liver bed, we then carried out a cholangiogram, which showed free flow into the duodenum, nondilated ducts, and good visualization of the hepatic radicals. The cystic duct was then clipped. The cystic artery was clipped. The gallbladder was removed from the liver bed. Excellent hemostasis was obtained and this was checked a number of times. We then removed the gallbladder from the field in a bag. There were numerous small stones. In fact, one stone was actually removed from the cystic duct. After this had been done, we then closed with a closure device the umbilicus and closed the skin with Monocryl subcuticular closure. Blood loss for the procedure was less than 25 mL. Operation carried out was laparoscopic cholecystectomy with C-arm cholangiogram. Eleazar Mendez Jr., MD cc: Robert Gusman MD
[2017-01-18] MEDS: POLYETHYLENE GLYCOL 3350 17 GM/Dose PACKET PO SCH ×2 (10:20→17:47)
[2017-01-18] MEDS: Lactated Ringer's 1,000 ML IV SCH ×2 (11:54→21:10)
--- NOTE | 2017-01-18 13:55 | CP.PCM.PN ---
Subjective - Date & Time of Evaluation Date of Evaluation: 01/18/17 Time of Evaluation: 13:51 - Subjective Subjective: Surgery: Dr. Mendez Pt seen and examined. Resting comfortably in bed. Pain controlled. Tolerating diet. No N/V. No F/C. Overnight pt did have urinary retention and required moser placement. Objective - Vital Signs/Intake and Output Vital Signs (last 24 hours): Temp Pulse Resp BP Pulse Ox 98.3 F 97 H 20 145/78 98 01/18/17 07:47 01/18/17 07:47 01/18/17 07:47 01/18/17 07:47 01/18/17 07:47 Intake and Output: 01/18/17 01/18/17 06:59 18:59 Intake Total 1700 800 Output Total 1000 1700 Balance 700 -900 - Medications Medications: Current Medications Dicyclomine HCl (Bentyl) 10 mg PO TID [facility] Last Admin: 01/18/17 10:25 Dose: 10 mg Glycerin (Glycerin Adult Suppository) 1 sup [place] HS [facility] Last Admin: 01/17/17 22:00 Dose: Not Given Heparin Sodium (Porcine) (Heparin) 5,000 units SC Q8 [facility] Lactated Ringer's (Lactated Ringer's) 1,000 mls @ 100 mls/hr IV .Q10H [facility] Last Admin: 01/18/17 11:54 Dose: Not Given Ketorolac Tromethamine (Toradol) 15 mg IVP Q6 PRN PRN Reason: Pain, moderate (4-7) Last Admin: 01/17/17 15:15 Dose: 15 mg Lorazepam (Ativan) 2 mg PO TID PRN PRN Reason: Anxiety Last Admin: 01/18/17 10:24 Dose: 2 mg Metoclopramide HCl (Reglan) 10 mg IVP Q6 PRN PRN Reason: Nausea/Vomiting Last Admin: 01/17/17 15:19 Dose: 10 mg Metoprolol Tartrate (Lopressor) 50 mg PO Q12 [facility] Last Admin: 01/18/17 10:20 Dose: 50 mg Morphine Sulfate (Morphine) 4 mg IVP Q4 PRN PRN Reason: Pain, moderate (4-7) Last Admin: 01/17/17 16:50 Dose: 4 mg Olanzapine (Zyprexa) 10 mg PO HS [facility] Last Admin: 01/17/17 22:01 Dose: 10 mg Ondansetron HCl (Zofran Inj) 4 mg IVP Q6H PRN PRN Reason: Nausea/Vomiting Oxycodone/Acetaminophen (Percocet 5/325 Mg Tab) 1 tab PO Q4H PRN PRN Reason: Pain, severe (8-10) Stop: 01/20/17 14:16 Pantoprazole Sodium (Protonix Inj) 40 mg IVP Q12H [facility] Last Admin: 01/18/17 10:19 Dose: 40 mg Polyethylene Glycol (Miralax) 17 gm PO BID [facility] Last Admin: 01/18/17 10:20 Dose: 17 gm Zolpidem Tartrate (Ambien) 5 mg PO HS PRN PRN Reason: Insomnia Last Admin: 01/17/17 22:01 Dose: 5 mg - Labs Labs: 01/17/17 22:59 01/17/17 22:59 PT 12.9 SECONDS (9.7-12.2) H 01/16/17 07:43 INR 1.1 01/16/17 07:43 APTT 33 SECONDS (21-34) 01/16/17 07:43 - Constitutional Appears: Non-toxic, No Acute Distress - Head Exam Head Exam: ATRAUMATIC, NORMOCEPHALIC - Eye Exam Eye Exam: EOMI - ENT Exam ENT Exam: Mucous Membranes Moist - Neck Exam Neck Exam: Full ROM - Respiratory Exam Respiratory Exam: NORMAL BREATHING PATTERN. absent: Accessory Muscle Use, Respiratory Distress - GI/Abdominal Exam GI & Abdominal Exam: Soft, Tenderness (saima-incisional ). absent: Distended, Firm, Rigid, Rebound - Extremities Exam Extremities Exam: absent: Calf Tenderness, Pedal Edema - Neurological Exam Neurological Exam: Alert, Awake, Oriented x3 - Psychiatric Exam Psychiatric exam: Normal Affect, Normal Mood - Skin Skin Exam: Dry, Normal Color, Warm Assessment and Plan - Assessment and Plan (Free Text) Assessment: 61M w. cholelithiasis, s/p lap melo, POD#1 -Urinary retention overnight, d/c moser, if pt voids, clear for d/c from surgical standpoint -encourage ambulation and IS use -pt to follow up wMoises Mendez in 1-2 weeks upon d/c -d/w attending Zelindaitis PGY3
[2017-01-19 00:05] VITALS: RESP 20; O2SAT 96
[2017-01-19 07:31] VITALS: BP 130/78; PULSE 88; TEMP 98.6
--- NOTE | 2017-01-19 08:00 | CP.PCM.PN ---
Subjective - Date & Time of Evaluation Date of Evaluation: 01/19/17 Time of Evaluation: 07:00 - Subjective Subjective: Surgery not for Dr. Mendez Pt seen and examined and in no acute distress. Resting comfortably in bed. Pain controlled. Tolerating diet. No N/V. Patient has not had a bowel movement. Patient has had some gas and is ambulating some. Objective - Vital Signs/Intake and Output Vital Signs (last 24 hours): Temp Pulse Resp BP Pulse Ox 98.6 F 88 20 130/78 96 01/19/17 07:29 01/19/17 07:29 01/19/17 07:29 01/19/17 07:29 01/19/17 07:29 Intake and Output: 01/19/17 01/19/17 06:59 18:59 Intake Total 300 Output Total 1600 Balance -1300 - Medications Medications: Current Medications Dicyclomine HCl (Bentyl) 10 mg PO TID [facility] Last Admin: 01/18/17 17:46 Dose: 10 mg Glycerin (Glycerin Adult Suppository) 1 sup [place] HS [facility] [place] Last Admin: 01/18/17 21:09 Dose: 1 sup Heparin Sodium (Porcine) (Heparin) 5,000 units SC Q8 [facility] [place] Last Admin: 01/19/17 05:49 Dose: Not Given Lactated Ringer's (Lactated Ringer's) 1,000 mls @ 100 mls/hr IV .Q10H [facility] [place] Last Admin: 01/18/17 21:10 Dose: Not Given Ketorolac Tromethamine (Toradol) 15 mg IVP Q6 PRN PRN Reason: Pain, moderate (4-7) Last Admin: 01/17/17 15:15 Dose: 15 mg Lorazepam (Ativan) 2 mg PO TID PRN PRN Reason: Anxiety Last Admin: 01/18/17 10:24 Dose: 2 mg Metoclopramide HCl (Reglan) 10 mg IVP Q6 PRN PRN Reason: Nausea/Vomiting Last Admin: 01/17/17 15:19 Dose: 10 mg Metoprolol Tartrate (Lopressor) 50 mg PO Q12 [facility] [place] Last Admin: 01/18/17 21:09 Dose: 50 mg Olanzapine (Zyprexa) 10 mg PO HS [facility] [place] Last Admin: 01/18/17 21:09 Dose: 10 mg Ondansetron HCl (Zofran Inj) 4 mg IVP Q6H PRN PRN Reason: Nausea/Vomiting Oxycodone/Acetaminophen (Percocet 5/325 Mg Tab) 1 tab PO Q4H PRN PRN Reason: Pain, severe (8-10) Stop: 01/20/17 14:16 Pantoprazole Sodium (Protonix Inj) 40 mg IVP Q12H [facility] [place] Last Admin: 01/18/17 21:08 Dose: 40 mg Polyethylene Glycol (Miralax) 17 gm PO BID [facility] [place] Last Admin: 01/18/17 17:47 Dose: 17 gm Tamsulosin HCl (Flomax) 0.4 mg PO DAILY [facility] [place] Zolpidem Tartrate (Ambien) 5 mg PO HS PRN PRN Reason: Insomnia Last Admin: 01/18/17 21:09 Dose: 5 mg - Labs Labs: 01/17/17 22:59 01/17/17 22:59 PT 12.9 SECONDS (9.7-12.2) H 01/16/17 07:43 INR 1.1 01/16/17 07:43 APTT 33 SECONDS (21-34) 01/16/17 07:43 - Constitutional Appears: Non-toxic, No Acute Distress - Head Exam Head Exam: ATRAUMATIC, NORMAL INSPECTION, NORMOCEPHALIC - Eye Exam Eye Exam: EOMI, Normal appearance - ENT Exam ENT Exam: Mucous Membranes Moist - Respiratory Exam Respiratory Exam: NORMAL BREATHING PATTERN. absent: Accessory Muscle Use, Respiratory Distress - Cardiovascular Exam Cardiovascular Exam: REGULAR RHYTHM, +S1, +S2 - GI/Abdominal Exam GI & Abdominal Exam: Soft, Normal Bowel Sounds. absent: Tenderness - Extremities Exam Extremities Exam: Normal Inspection. absent: Pedal Edema, Tenderness - Neurological Exam Neurological Exam: Alert, Awake, Oriented x3 - Psychiatric Exam Psychiatric exam: Normal Affect, Normal Mood - Skin Skin Exam: Intact, Normal Color, Warm Assessment and Plan - Assessment and Plan (Free Text) Assessment: 61M w. cholelithiasis, s/p lap melo, POD#2 -Urinary retention overnight, d/c moser and start on flomax, if pt voids, clear for d/c from surgical standpoint -encourage ambulation and IS use -pt to follow up wMoises Mendez in 1-2 weeks upon d/c -d/w Dr. Mendez
[2017-01-19] MEDS: POLYETHYLENE GLYCOL 3350 17 GM/Dose PACKET PO SCH (09:33)
--- NOTE | 2017-01-19 15:40 | CP.PCM.PN ---
Subjective - Date & Time of Evaluation Date of Evaluation: 01/19/17 Time of Evaluation: 15:40 - Subjective Subjective: PT SEEN FOR D/C TODAY. POD #1 LAP CLAIRE. PT TOLERATING PO WELL. HAD ORTEZ REMOVED THIS MORNING AND ENCOURAGED TO DRINK FLUIDS. VOIDED A TOTAL OF APPROX 200 ML UPON MY EXAM; BLADDER SCAN REQUESTED IMMEDIATELY BEFORE PT VOIDED THIS AMOUNT. PT STATES HE NO LONGER HAS PAIN AFTER EATING/DRINKING. CLEARED BY SURGICAL TEAM FOR F/U IN 1-[address] LANDAVERDE; CLEARED BY GI WITH OP F/U. OK TO D/C HOME TODAY PER Lisseth NIEVES. DISCUSSED PLAN WITH PT AND WHO IS AT BEDSIDE. THEY ARE IN AGREEMENT WITH PLAN AND VERBALIZE UNDERSTANDING OF D/C PLAN. Objective - Vital Signs/Intake and Output Vital Signs (last 24 hours): Temp Pulse Resp BP Pulse Ox 98.6 F 88 20 130/78 96 01/19/17 07:29 01/19/17 07:29 01/19/17 07:29 01/19/17 07:29 01/19/17 07:29 Intake and Output: 01/19/17 01/19/17 06:59 18:59 Intake Total 300 Output Total 1600 Balance -1300 - Medications Medications: Current Medications Dicyclomine HCl (Bentyl) 10 mg PO TID [facility] Last Admin: 01/19/17 14:03 Dose: 10 mg Glycerin (Glycerin Adult Suppository) 1 sup [place] HS [facility] Last Admin: 01/18/17 21:09 Dose: 1 sup Heparin Sodium (Porcine) (Heparin) 5,000 units SC Q8 [facility] Last Admin: 01/19/17 05:49 Dose: Not Given Lactated Ringer's (Lactated Ringer's) 1,000 mls @ 100 mls/hr IV .Q10H [facility] Last Admin: 01/18/17 21:10 Dose: Not Given Lorazepam (Ativan) 2 mg PO TID PRN PRN Reason: Anxiety Last Admin: 01/19/17 09:36 Dose: 2 mg Metoclopramide HCl (Reglan) 10 mg IVP Q6 PRN PRN Reason: Nausea/Vomiting Last Admin: 01/17/17 15:19 Dose: 10 mg Metoprolol Tartrate (Lopressor) 50 mg PO Q12 [facility] Last Admin: 01/19/17 09:32 Dose: 50 mg Olanzapine (Zyprexa) 10 mg PO HS [facility] Last Admin: 01/18/17 21:09 Dose: 10 mg Ondansetron HCl (Zofran Inj) 4 mg IVP Q6H PRN PRN Reason: Nausea/Vomiting Oxycodone/Acetaminophen (Percocet 5/325 Mg Tab) 1 tab PO Q4H PRN PRN Reason: Pain, severe (8-10) Stop: 01/20/17 14:16 Pantoprazole Sodium (Protonix Inj) 40 mg IVP Q12H [facility] Last Admin: 01/19/17 09:33 Dose: 40 mg Polyethylene Glycol (Miralax) 17 gm PO BID [facility] Last Admin: 01/19/17 09:33 Dose: 17 gm Tamsulosin HCl (Flomax) 0.4 mg PO DAILY [facility] Last Admin: 01/19/17 09:32 Dose: 0.4 mg Zolpidem Tartrate (Ambien) 5 mg PO HS PRN PRN Reason: Insomnia Last Admin: 01/18/17 21:09 Dose: 5 mg - Labs Labs: 01/17/17 22:59 01/17/17 22:59 PT 12.9 SECONDS (9.7-12.2) H 01/16/17 07:43 INR 1.1 01/16/17 07:43 APTT 33 SECONDS (21-34) 01/16/17 07:43
== END 2017-01-19 18:20 | disposition home or self-care (01) | DRG 418 ==
LOC: C.ER 10:42 → C.9OBSV 15:54 → C.3T 20:45 → OBSVTOIN 01-17 09:18
PROVIDERS: ADMIT Internal Medicine; ATTEND Internal Medicine
PROC: BF03YZZ Plain Radiography of Gallbladder and Bile Ducts using Other Contrast (ICD-10-PCS; 2017-01-17)
PROC: 0FT44ZZ Resection of Gallbladder, Percutaneous Endoscopic Approach (ICD-10-PCS; principal; 2017-01-17 10:15)
DX: K80.10 Calculus of gallbladder with chronic cholecystitis without obstruction (principal); K86.2 Cyst of pancreas; I10 Essential (primary) hypertension; F20.0 Paranoid schizophrenia; F41.9 Anxiety disorder, unspecified; F31.9 Bipolar disorder, unspecified; Z86.711 Personal history of pulmonary embolism; E11.9 Type 2 diabetes mellitus without complications; K59.00 Constipation, unspecified; Z86.718 Personal history of other venous thrombosis and embolism; Z79.01 Long term (current) use of anticoagulants; Z86.010 Personal history of colon polyps; N40.1 Benign prostatic hyperplasia with lower urinary tract symptoms; R33.8 Other retention of urine; K21.0 Gastro-esophageal reflux disease with esophagitis

== ENCOUNTER 2017-09-20 14:53 | Inpatient (IN) | payer MEDICARE ==
[2017-09-20 15:10] VITALS: BMI 21.2
--- NOTE | 2017-09-20 16:16 | C.PDOC ---
History Of Present Illness PALPITATIONS X 1 WEEK. +ASSOC SOB/PAIZ, CHEST PRESSURE. CONSTANT. HO DVT, ON ELIQUIS BUT TAKES ONLY ONCE DAILY DUE TO SIDE EFFECTS. PS PMD AWARE. NO FEVER, COUGH. DENIES LEG SWELLING, PAIN. REFERRED BY PMD FOR EVAL EXAM MILD DIST NONTOXIC HEENT NEG CV RRR SINUS TACH LUNGS CTA B/L NO W/R/R NO RETRACTIONS SPEAKING FULL SENTENCES ABD NEG LEGS NO EDEMA NONTEND NO SWELL REMAINDER NEG Time Seen by Provider: 09/20/17 16:05 Chief Complaint (Nursing): High Blood Pressure History Per: Patient History/Exam Limitations: no limitations Onset/Duration Of Symptoms: Persistent (1 week) Current Symptoms Are (Timing): Still Present Additional History Per: Patient Past Medical History Reviewed: Historical Data, Nursing Documentation, Vital Signs Vital Signs: Last Vital Signs Temp 98.6 F 09/20/17 15:09 Pulse 104 H 09/20/17 17:58 Resp 20 09/20/17 17:58 BP 168/99 H 09/20/17 17:58 Pulse Ox 96 09/20/17 18:57 - Medical History PMH: Anxiety, Bipolar Disorder, Depression, Deep Vein Thrombosis, HTN, Pulmonary Embolism, Schizophrenia (paranoid type), Seizures Denies: HIV, Chronic Kidney Disease, Sexually Transmitted Disease Surgical History: Cholecystectomy, Tonsillectomy - [facility] EXCISION OF ASCENDING COLON, ENDO, DIAGN (07/06/16) EXCISION OF CECUM, ENDO, DIAGN (07/06/16) EXCISION OF DESCENDING COLON, ENDO, DIAGN (07/06/16) EXCISION OF ESOPHAGOGASTRIC JUNCTION, ENDO, DIAGN (07/06/16) EXCISION OF TRANSVERSE COLON, ENDO, DIAGN (07/06/16) GROUP PSYCHOTHERAPY (12/09/15) INDIVIDUAL PSYCHOTHERAPY, COGNITIVE-BEHAVIORAL (12/09/15) INSERTION OF ENDOTRACHEAL AIRWAY INTO TRACHEA, VIA OPENING (11/29/15) PSYCHIAT DRUG THERAP NEC (03/21/06) RADIOGRAPHY OF GALLBLADDER & BILE DUCT USING OTH CONTRAST (01/17/17) RESECTION OF GALLBLADDER, PERCUTANEOUS ENDOSCOPIC APPROACH (01/17/17) RESPIRATORY VENTILATION, 24-96 CONSECUTIVE HOURS (11/29/15) Family History: States: No Known Family Hx, Unknown Family Hx - Social History Hx Tobacco Use: No Hx Alcohol Use: No Hx Substance Use: No - Immunization History Hx Tetanus Toxoid Vaccination: No Hx Influenza Vaccination: No (2014) Hx Pneumococcal Vaccination: No Review Of Systems Except As Marked, All Systems Reviewed And Found Negative. Constitutional: Negative for: Fever, Chills Cardiovascular: Positive for: Palpitations, Other (chest pressure) Respiratory: Positive for: Shortness of Breath, SOB with Excertion Musculoskeletal: Negative for: Leg Pain, Other (leg swelling) Physical Exam - Physical Exam Appears: Non-toxic, In Acute Distress (mild) Skin: Normal Color, Warm, Dry Head: Atraumatic, Normacephalic Eye(s): bilateral: Normal Inspection Ear(s): Bilateral: Normal Oral Mucosa: Moist Throat: Normal, No Erythema, No Exudate Neck: Normal ROM, Supple Chest: Symmetrical Cardiovascular: Rhythm Regular (tachycardic) Respiratory: Normal Breath Sounds, No Rales, No Rhonchi, No Wheezing, Other (no retractions, speaking full sentences) Gastrointestinal/Abdominal: Normal Exam, Soft, No Tenderness Back: Normal Inspection Extremity: Normal ROM, No Tenderness, No Pedal Edema, No Swelling Neurological/Psych: Oriented x3, Normal Speech, Normal Cognition, Normal Motor, Normal Sensation ED Course And Treatment - Laboratory Results Result Diagrams: 09/20/17 16:20 09/20/17 16:20 ECG: Interpreted By Me ECG Rhythm: Sinus Tachycardia ECG Interpretation: Abnormal Rate From EC O2 Sat by Pulse Oximetry: 96 Pulse Ox Interpretation: Normal - Radiology CXR: Interpreted by Me CXR Interpretation: Yes: No Acute Disease Progress - Re-Evaluation Re-evaluation Note: 09/20/17 18:03 PERSIST SINUS TACHY @ 110. NAD NONTOXIC D/W DR GUSMAN. PENDING CTA REPORT. ADMIT OBS FOR PERSIST TACHYCARDIA, CP IF NEG. - Data Reviewed Data Reviewed: Lab, Diagnostic imaging, EKG, Old records Disposition Counseled Patient/Family Regarding: Studies Performed, Diagnosis, Need For Followup - Disposition Disposition: HOSPITALIZED Disposition Time: 19:02 Condition: STABLE Forms: [facility] (Lao) - Clinical Impression Clinical Impression: Schizoaffective disorder, chronic condition, Sinus tachycardia, Chest pain - Scribe Statement The provider has reviewed the documentation as recorded by the Scribe (Bárbara Drew) Provider Attestation: All medical record entries made by the Scribe were at my direction and personally dictated by me. I have reviewed the chart and agree that the record accurately reflects my personal performance of the history, physical exam, medical decision making, and the department course for this patient. I have also personally directed, reviewed, and agree with the discharge instructions and disposition. Decision To Admit - Pt Status Changed To: Hospital Disposition Of: Observation - . Bed Request Type: Telemetry Admitting Physician: Robert Gusman Patient Diagnosis: Schizoaffective disorder, chronic condition, Sinus tachycardia, Chest pain
[2017-09-20 16:28] LABS: BASO % 0.4 % (0.0-2.0); EOS % 0.3 % (0.0-4.0); HEMOGLOBIN 14.7 g/dL (12.0-18.0); LYMPH # 1.2 K/uL (1.0-4.3); LYMPH % 15.2 % (20.0-40.0); MEAN CORPUSCULAR HEMOGLOBIN 30.6 pg (27.0-31.0); MEAN CORPUSCULAR HGB CONC 34.8 g/dL (33.0-37.0); MEAN PLATELET VOLUME 7.9 fL (7.2-11.7); MONO # 0.7 K/uL (0.0-0.8); MONO % 8.5 % (0.0-10.0); NEUT # 5.9 K/uL (1.8-7.0); NEUT % 75.6 % (50.0-75.0); NRBC % 0.1 % (0.0-2.0); RBC 4.8 Mil/uL (4.40-5.90); RED CELL DISTRIBUTION WIDTH 13.7 % (11.5-14.5); WHITE BLOOD COUNT 7.8 K/uL (4.8-10.8)
[2017-09-20 16:36] LABS: INR 1.2; PROTHROMBIN TIME 13.3 SECONDS (9.7-12.2)
[2017-09-20 16:40] LABS: ALB/GLOB RATIO 1.5 (1.0-2.1); ALBUMIN 4.5 g/dL (3.5-5.0); ALT/SGPT 27 U/L (21-72); AST/SGOT 19 U/L (17-59); BLOOD UREA NITROGEN 18 mg/dL (9-20); CALCIUM 9.9 mg/dl (8.6-10.4); GFR AFRICAN-AMERICAN > 60; GFR NON-AFRICAN AMERICAN > 60
[2017-09-20 16:53] LABS: B-TYPE NATRIURETIC PEPTIDE 61.3 pg/mL (0-900)
[2017-09-20] MEDS ORDERED: Iodixanol 320 MG/ML 100 ML BOTTLE IV ONE (17:26)
--- NOTE | 2017-09-20 18:58 | CT ---
PROCEDURE: CT Chest with contrast (Pulmonary Angiogram) HISTORY: SOB COMPARISON: Comparison made with prior CT scan abdomen pelvis 01/15/2017 which imaged both lung bases. TECHNIQUE: Axial computed tomography images were obtained of the chest in the pulmonary arterial phase of enhancement. Coronal and sagittal reformatted images were created and reviewed. Intravenous contrast dose: 100 cc Visipaque 320 Radiation dose: Total exam DLP = 508.55 mGy-cm. This CT exam was performed using one or more of the following dose reduction techniques: Automated exposure control, adjustment of the mA and/or kV according to patient size, and/or use of iterative reconstruction technique. FINDINGS: PULMONARY ARTERIES: Unremarkable. No pulmonary embolism. AORTA: No acute findings. No thoracic aortic aneurysm. LUNGS: No acute consolidation. . Minor scarring changes both lung bases of the including the lingular and middle lobe regions. There are a few tiny adjacent tiny nodular densities left anterior upper lung field with what appears represent scarring changes extending between these small nodular is densities. Inflammatory findings likely postinflammatory however followup CT scan 6 months recommended to assess stability. PLEURAL SPACES: Unremarkable. No effusion or pneumothorax. HEART: Heart size within range of normal. No significant pericardial effusion. LYMPH NODES: No lymphadenopathy. . There is a small hiatal hernia. . There appear to be a a tiny cluster of calcifications adjacent to the esophagus possibly representing small calcified lymph nodes. BONES, CHEST WALL: Unremarkable. No fracture or destructive lesion OTHER FINDINGS: Cholecystectomy. Pancreas is slightly atrophic and fatty replaced. IMPRESSION: No evidence of acute central pulmonary embolus. . There are a few tiny nodular density seen left anterior upper lung field technician with of linear scarring between the nodules. Findings likely postinflammatory however followup CT scan in 6 months recommended to assess stability. Minor scarring changes seen in the both lung bases including the lingular and middle lobe regions.
[2017-09-20] MEDS ORDERED: POLYETHYLENE GLYCOL 3350 17 GM/Dose PACKET PO PRN (19:54)
--- NOTE | 2017-09-20 20:00 | CP.PCM.HP ---
History of Present Illness - History of Present Illness History of Present Illness: Chief complaint: Patient came to the office with symptoms of very anxious and anxiety, and also palpitation and chest pain,In the office patient had a tachycardia 140/min. Also very uncontrolled hypertension. I sent him to the emergency room immediately History present illness: 61-year-old male with history of bipolar disease, schizophrenia, major depression and anxiety seen by psychiatrist, admitted to the hospital today, With ongoing anxiety, and the chest pain, chest discomfort, uncontrolled blood pressure, and tachycardia Patient was having increasing symptoms of dizziness also associated with the chest pain. In the emergency room patient was seen by ER, underwent extensive workup. CT scan of the chest with contrast is showing no evidence of PE. Because of the continuation of tachycardia, and tachypnea patient needed hospitalization and monitoring. He is also complaining of increasing abdominal pain. Anxiety. Insomnia. Poor intake. Abdominal pain. Past medical history: Schizophrenia, bipolar disease. Anxiety. Possible anorexia Surgical history: None Allergies: Patient has a multiple allergies including Seroquel, Haldol, lithium. Family history noncontributory Personal history patient is a lifelong nonsmoker nonalcoholic Review of system: Patient is currently having minimal headache, nausea noted, abdominal pain noted , denies any chest pain, weakness and tiredness noted. Significant constipation present Increasing muscle wasting and weakness noted Vital signs reviewed, vital signs reviewed No neck vein distention noted, dryness of the mouth noted Chest good air entry bilaterally, no wheezing or rales noted CVS regular heart sound, no murmur noted Abdomen soft, nontender. 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 X-ray chest normal. CT scan of the chest showing evidence of no acute pathology. No PE But mildly nodular changes noted. Patient will need repeat CT scan of the chest in 6 months Assessment and recommendation: 61-year-old male with history of schizophrenia, anxiety. Now admitted with acute tachycardia, and acute hypertension. Uncontrolled hypertensive changes. Anxiety. Chest pain. Patient is currently given clonidine patch, but the patient is not feeling with the clonidine. We will discontinue clonidine. We will resume the metoprolol succinate twice a day. Cardizem. Cardiology evaluation. Echocardiogram may be needed. We will closely monitor telemetry basilio. Cardiac enzymes monitoring and will follow the patient Present on Admission - Present on Admission Any Indicators Present on Admission: No History of DVT/PE: No History of Uncontrolled Diabetes: No Urinary Catheter: No Decubitus Ulcer Present: No Past Patient History - Infectious Disease Hx of Infectious Diseases: None - Past Medical History & Family History Past Medical History?: Yes - Past Social History Smoking Status: Never Smoked - CARDIAC Hx Hypertension: Yes - PULMONARY Hx Pulmonary Embolism: Yes - NEUROLOGICAL Hx Seizures: Yes - HEENT Hx HEENT Problems: No - RENAL Hx Chronic Kidney Disease: No - ENDOCRINE/METABOLIC Hx Endocrine Disorders: Yes Hx Diabetes Mellitus Type 2: Yes - HEMATOLOGICAL/ONCOLOGICAL Hx Human Immunodeficiency Virus (HIV): No - INTEGUMENTARY Hx Dermatological Problems: No - MUSCULOSKELETAL/RHEUMATOLOGICAL Hx Musculoskeletal Disorders: No Hx Falls: No - GASTROINTESTINAL Hx Gastrointestinal Disorders: No - GENITOURINARY/GYNECOLOGICAL Hx Sexually Transmitted Disorders: No - PSYCHIATRIC Hx Anxiety: Yes Hx Bipolar Disorder: Yes Hx Depression: Yes Hx Schizophrenia: Yes (paranoid type) Hx Substance Use: No - SURGICAL HISTORY Hx Cholecystectomy: Yes Hx Tonsillectomy: Yes - ANESTHESIA Hx Anesthesia: Yes Hx Anesthesia Reactions: No Hx Malignant Hyperthermia: No Meds Allergies/Adverse Reactions: Allergies Allergy/AdvReac Type Severity Reaction Status Date / Time quetiapine Allergy Severe SHORTNESS Verified 09/20/17 15:06 OF BREATH haloperidol [From Haldol] AdvReac SHORTNESS Verified 09/20/17 15:06 OF BREATH haloperidol lactate AdvReac SHORTNESS Verified 09/20/17 15:06 [From Haldol] OF BREATH lithium AdvReac Verified 09/20/17 15:06 Results - Vital Signs Recent Vital Signs: Last Vital Signs Temp 98.6 F 09/20/17 15:09 Pulse 103 H 09/20/17 19:24 Resp 18 09/20/17 19:24 BP 161/100 H 09/20/17 19:24 Pulse Ox 100 09/20/17 19:24 - Labs Result Diagrams: 09/20/17 16:20 09/20/17 16:20 Labs: Laboratory Results - last 24 hr 09/20/17 09/20/17 09/20/17 16:20 16:20 16:20 WBC 7.8 RBC 4.80 Hgb 14.7 D Hct 42.2 MCV 88.0 MCH 30.6 MCHC 34.8 RDW 13.7 Plt Count 243 MPV 7.9 Neut % (Auto) 75.6 H Lymph % (Auto) 15.2 L [place] % (Auto) 8.5 Eos % (Auto) 0.3 Baso % (Auto) 0.4 Neut # (Auto) 5.9 Lymph # (Auto) 1.2 [place] # (Auto) 0.7 Eos # (Auto) 0.0 Baso # (Auto) 0.0 PT 13.3 H INR 1.2 APTT 42 H Sodium 138 Potassium 4.1 Chloride 98 Carbon Dioxide 27 Anion Gap 16 BUN 18 Creatinine 1.0 Est GFR ( Amer) > 60 Est GFR (Non-Af Amer) > 60 Random Glucose 134 H Calcium 9.9 Total Bilirubin 0.6 AST 19 ALT 27 Alkaline Phosphatase 66 Troponin I < 0.0120 NT-Pro-B Natriuret Pep 61.3 Total Protein 7.3 Albumin 4.5 Globulin 2.9 Albumin/Globulin Ratio 1.5
[2017-09-20 23:11] LABS: CK-MB 1.03 ng/mL (0.0-3.38)
[2017-09-21] MEDS ORDERED: Albuterol-Ipratrop 3 mg / 0.5 (3 ml) UD INH STA (03:08)
--- NOTE | 2017-09-21 07:47 | RAD ---
Chest x-ray single frontal view History: Shortness of breath. Comparison: 01/05/2017 Findings: Mild venous congestion. Right hilar prominence. Biapical pleural thickening. Degenerative changes in the spine with paravertebral osteophytes. Impression: Mild venous congestion. Right hilar prominence. Biapical pleural thickening. Degenerative changes in the spine with paravertebral osteophytes.
[2017-09-21 07:52] LABS: CK-MB 1.24 ng/mL (0.0-3.38)
[2017-09-21] MEDS: diltiaZEM 120 mg/24 Hours CD Cap PO SCH (09:24)
[2017-09-21] MEDS: Pantoprazole 40 mg EC Tab PO SCH (09:25)
--- NOTE | 2017-09-21 10:10 | CP.PCM.PN ---
Subjective - Date & Time of Evaluation Date of Evaluation: 09/21/17 Time of Evaluation: 10:09 - Subjective Subjective: Patient is still having symptoms of anxiety. Tachycardia noted this morning. Very anxious, he is also complaining of some chest discomfort. No nausea no vomiting, very poorly eating On examination vital signs this morning temperature is 97.8 pulse 96 blood pressure 177/94 on examination of chest good air entry regular heart sounds nontender abdomen no pedal edema Labs reviewed cardiac enzymes negative CT of the chest are normal pulmonary embolism cardiology consultation pending Assessment and recommendation: 62-year-old male with history of bipolar disease very anxiety hypertension history of PE in the past status post a cholecystectomy admitted to the hospital with severe tachycardia hypertension unclear etiology. Underlying cardiac causes cannot be ruled out. Well-controlled blood pressure. Increase metoprolol and losartan and will follow the patient DC clonidine patch. Objective - Vital Signs/Intake and Output Vital Signs (last 24 hours): Temp Pulse Resp BP Pulse Ox 97.8 F 98 H 18 177/94 H 100 09/21/17 07:15 09/21/17 09:22 09/21/17 07:15 09/21/17 09:22 09/21/17 07:15 Intake and Output: 09/21/17 09/21/17 06:59 18:59 Intake Total 10 Output Total 500 Balance -490 - Medications Medications: Current Medications Apixaban (Eliquis) 5 mg PO DAILY [facility] Last Admin: 09/21/17 09:25 Dose: 5 mg Dicyclomine HCl (Bentyl) 10 mg PO BID PRN PRN Reason: Pain, Mild (1-3) Diltiazem HCl (Cardizem Cd) 120 mg PO DAILY [facility] Last Admin: 09/21/17 09:24 Dose: 120 mg Docusate Sodium (Colace) 100 mg PO DAILY PRN PRN Reason: Constipation Lorazepam (Ativan) 2 mg PO TID [facility] Last Admin: 09/21/17 09:24 Dose: 2 mg Metoprolol Tartrate (Lopressor) 50 mg PO BID [facility] Last Admin: 09/21/17 09:24 Dose: 50 mg Olanzapine (Zyprexa) 10 mg PO HS [facility] Last Admin: 09/20/17 22:52 Dose: 10 mg Pantoprazole Sodium (Protonix Ec Tab) 40 mg PO DAILY [facility] Last Admin: 09/21/17 09:25 Dose: 40 mg Polyethylene Glycol (Miralax) 17 gm PO BID PRN PRN Reason: Constipation Tamsulosin HCl (Flomax) 0.4 mg PO DAILY [facility] Last Admin: 09/21/17 09:24 Dose: 0.4 mg Zolpidem Tartrate (Ambien) 5 mg PO HS PRN PRN Reason: Insomnia Last Admin: 09/20/17 22:40 Dose: 5 mg - Labs Labs: 09/20/17 16:20 09/20/17 16:20 PT 13.3 SECONDS (9.7-12.2) H 09/20/17 16:20 INR 1.2 09/20/17 16:20 APTT 42 SECONDS (21-34) H 09/20/17 16:20
--- NOTE | 2017-09-22 07:58 | CP.PCM.CON ---
History of Present Illness - History of Present Illness History of Present Illness: Patient seen and evaluated Anxious Chest pain: Atypical (Unlikely cardiac) ECHO: Dilated right heart Normal EF CT: Neagative for PE Tachycardia: Medical mgt Past Patient History - Infectious Disease Hx of Infectious Diseases: None - Past Medical History & Family History Past Medical History?: Yes - Past Social History Smoking Status: Never Smoked - CARDIAC Hx Hypertension: Yes - PULMONARY Hx Pulmonary Embolism: Yes - NEUROLOGICAL Hx Seizures: Yes - HEENT Hx HEENT Problems: No - RENAL Hx Chronic Kidney Disease: No - ENDOCRINE/METABOLIC Hx Endocrine Disorders: Yes Hx Diabetes Mellitus Type 2: Yes - HEMATOLOGICAL/ONCOLOGICAL Hx Human Immunodeficiency Virus (HIV): No - INTEGUMENTARY Hx Dermatological Problems: No - MUSCULOSKELETAL/RHEUMATOLOGICAL Hx Musculoskeletal Disorders: No Hx Falls: No - GASTROINTESTINAL Hx Gastrointestinal Disorders: No - GENITOURINARY/GYNECOLOGICAL Hx Sexually Transmitted Disorders: No - PSYCHIATRIC Hx Anxiety: Yes Hx Bipolar Disorder: Yes Hx Depression: Yes Hx Schizophrenia: Yes (paranoid type) Hx Substance Use: No - SURGICAL HISTORY Hx Cholecystectomy: Yes Hx Tonsillectomy: Yes - ANESTHESIA Hx Anesthesia: Yes Hx Anesthesia Reactions: No Hx Malignant Hyperthermia: No Meds Allergies/Adverse Reactions: Allergies Allergy/AdvReac Type Severity Reaction Status Date / Time quetiapine Allergy Severe SHORTNESS Verified 09/20/17 15:06 OF BREATH haloperidol [From Haldol] AdvReac SHORTNESS Verified 09/20/17 15:06 OF BREATH haloperidol lactate AdvReac SHORTNESS Verified 09/20/17 15:06 [From Haldol] OF BREATH lithium AdvReac Verified 09/20/17 15:06 - Medications Medications: Current Medications Apixaban (Eliquis) 5 mg PO DAILY [facility] Last Admin: 09/21/17 09:25 Dose: 5 mg Dicyclomine HCl (Bentyl) 10 mg PO BID PRN PRN Reason: Pain, Mild (1-3) Diltiazem HCl (Cardizem Cd) 120 mg PO DAILY [facility] Last Admin: 09/21/17 09:24 Dose: 120 mg Docusate Sodium (Colace) 100 mg PO DAILY PRN PRN Reason: Constipation Lorazepam (Ativan) 2 mg PO TID [facility] Last Admin: 09/21/17 17:51 Dose: 2 mg Losartan Potassium (Cozaar) 50 mg PO DAILY [facility] Last Admin: 09/21/17 10:22 Dose: 50 mg Metoprolol Tartrate (Lopressor) 50 mg PO BID [facility] Last Admin: 09/21/17 17:51 Dose: 50 mg Olanzapine (Zyprexa) 10 mg PO HS [facility] Last Admin: 09/21/17 21:57 Dose: 10 mg Pantoprazole Sodium (Protonix Ec Tab) 40 mg PO DAILY [facility] Last Admin: 09/21/17 09:25 Dose: 40 mg Polyethylene Glycol (Miralax) 17 gm PO BID PRN PRN Reason: Constipation Tamsulosin HCl (Flomax) 0.4 mg PO DAILY [facility] Last Admin: 09/21/17 09:24 Dose: 0.4 mg Zolpidem Tartrate (Ambien) 5 mg PO HS PRN PRN Reason: Insomnia Last Admin: 09/21/17 21:57 Dose: 5 mg Results - Vital Signs Recent Vital Signs: Last Vital Signs Temp 98.3 F 09/21/17 23:15 Pulse 70 09/22/17 01:03 Resp 20 09/21/17 23:15 BP 101/65 09/21/17 23:15 Pulse Ox 98 09/21/17 23:15 - Labs Result Diagrams: 09/20/17 16:20 09/20/17 16:20 Labs: Laboratory Results - last 24 hr 09/21/17 09/21/17 09/21/17 10:59 16:28 21:07 POC Glucose (mg/dL) 161 H 130 H 92 09/22/17 06:01 POC Glucose (mg/dL) 107
[2017-09-22] MEDS: diltiaZEM 120 mg/24 Hours CD Cap PO SCH (09:26)
[2017-09-22] MEDS: Pantoprazole 40 mg EC Tab PO SCH (09:27)
--- NOTE | 2017-09-22 12:04 | CARD ---
APPROVED REPORT EKG Measurement Heart [id number] <Conclusion> Sinus tachycardia Left axis deviation Abnormal ECG
--- NOTE | 2017-09-22 12:33 | CARD ---
APPROVED REPORT EXAM: Two-dimensional and M-mode echocardiogram with Doppler and color Doppler. Other Information Quality : GoodRhythm : INDICATION Pulmonary Embolism Chest Pain RISK FACTORS Hypertension Diabetes M-Mode DIMENSIONS RVDd2.02 (2.1-3.2cm)Left Atrium (MM)2.75 (2.5-4.0cm) IVSd0.65 (0.7-1.1cm)Aortic Root3.41 (2.2-3.7cm) LVDd4.85 (4.0-5.6cm)Aortic Cusp Exc.2.50 (1.5-2.0cm) PWd0.98 (0.7-1.1cm)FS (%) 31 % LVDs3.35 (2.0-3.8cm)LVEF (%)58 (>50%) Mitral Valve MV E Pudbzkkv24.2cm/sMV A Uqcidwkj92.2cm/sE/A ratio0.8 TDI E/Lateral E'0.0E/Medial E'0.0 Tricuspid Valve TR Peak [id number]/sTR Peak Gr.[id number] LEFT VENTRICLE The left ventricle is normal size. There is normal left ventricular wall thickness. The Ejection Fraction is 45-50%. There is mild global hypokinesis of the left ventricle. Transmitral Doppler flow pattern is Grade I-abnormal relaxation pattern. RIGHT VENTRICLE The right ventricle is normal size. The right ventricular systolic function is normal. ATRIA The left atrium size is normal. The right atrium size is normal. The interatrial septum is intact with no evidence for an atrial septal defect. AORTIC VALVE The aortic valve is mildly sclerotic. There is no aortic valvular vegetation. MITRAL VALVE Mitral annular calcification is mild. Mitral regurgitation is mild. TRICUSPID VALVE The tricuspid valve is normal in structure. There is mild tricuspid regurgitation. Right ventricular systolic pressure is estimated at 25 mmHg. There is no pulmonary hypertension. PULMONIC VALVE The pulmonary valve is normal in structure. GREAT VESSELS The aortic root is normal size. The aortic root displays mild sclerocalcific changes of the aortic root. The IVC is normal in size and collapses >50% with inspiration. PERICARDIAL EFFUSION There is no pericardial effusion. <Conclusion> The left ventricle is normal size. The Ejection Fraction is 45-50%. There is mild global hypokinesis of the left ventricle. Transmitral Doppler flow pattern is Grade I-abnormal relaxation pattern. Mitral regurgitation is mild. There is mild tricuspid regurgitation. Right ventricular systolic pressure is estimated at 25 mmHg. There is no pulmonary hypertension. The aortic root is normal size. The aortic root displays mild sclerocalcific changes of the aortic root.
--- NOTE | 2017-09-22 13:30 | CP.PCM.PN ---
Subjective - Date & Time of Evaluation Date of Evaluation: 09/22/17 Time of Evaluation: 13:30 - Subjective Subjective: Patient is today feeling much better. able to eat better today. Chest pain negative. No nausea vomiting. Patient heart rate is controlled well. Blood pressure controlled well. On examination: Vital signs stable. Pulse 77 blood pressure 100/65 respirations 2097% Chest good air entry bilaterally regular heart sounds nontender abdomen Assessment and recommendation: 62-year-old male with schizophrenia, bipolar, hypertension, history PE, anticoagulation. Admitted with the tachycardia, hypertension, uncontrolled anxiety. Currently improving. Medication adjustment. 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 Echocardiogram there is a slight decrease in the LV function. We will follow the patient Objective - Vital Signs/Intake and Output Vital Signs (last 24 hours): Temp Pulse Resp BP Pulse Ox 98.3 F 74 18 101/70 97 09/22/17 07:30 09/22/17 07:30 09/22/17 07:30 09/22/17 07:30 09/22/17 08:55 - Medications Medications: Current Medications Apixaban (Eliquis) 5 mg PO DAILY [facility] Last Admin: 09/22/17 09:27 Dose: 5 mg Dicyclomine HCl (Bentyl) 10 mg PO BID PRN PRN Reason: Pain, Mild (1-3) Diltiazem HCl (Cardizem Cd) 120 mg PO DAILY [facility] Last Admin: 09/22/17 09:26 Dose: 120 mg Docusate Sodium (Colace) 100 mg PO DAILY PRN PRN Reason: Constipation Lorazepam (Ativan) 2 mg PO TID [facility] Last Admin: 09/22/17 09:27 Dose: 2 mg Losartan Potassium (Cozaar) 50 mg PO DAILY [facility] Last Admin: 09/22/17 09:26 Dose: 50 mg Metoprolol Tartrate (Lopressor) 50 mg PO BID [facility] Last Admin: 09/22/17 09:27 Dose: 50 mg Olanzapine (Zyprexa) 10 mg PO HS [facility] Last Admin: 09/21/17 21:57 Dose: 10 mg Pantoprazole Sodium (Protonix Ec Tab) 40 mg PO DAILY [facility] Last Admin: 09/22/17 09:27 Dose: 40 mg Polyethylene Glycol (Miralax) 17 gm PO BID PRN PRN Reason: Constipation Tamsulosin HCl (Flomax) 0.4 mg PO DAILY [facility] Last Admin: 09/22/17 09:26 Dose: 0.4 mg Zolpidem Tartrate (Ambien) 5 mg PO HS PRN PRN Reason: Insomnia Last Admin: 09/21/17 21:57 Dose: 5 mg - Labs Labs: 09/20/17 16:20 09/20/17 16:20 PT 13.3 SECONDS (9.7-12.2) H 09/20/17 16:20 INR 1.2 09/20/17 16:20 APTT 42 SECONDS (21-34) H 09/20/17 16:20
[2017-09-23] MEDS: Pantoprazole 40 mg EC Tab PO SCH (09:20)
[2017-09-23] MEDS: diltiaZEM 120 mg/24 Hours CD Cap PO SCH (09:20)
--- NOTE | 2017-09-23 14:28 | CP.PCM.PN ---
Subjective - Date & Time of Evaluation Date of Evaluation: 09/23/17 Time of Evaluation: 14:28 - Subjective Subjective: Patient is comfortable not in any distress. He is ambulating well. No chest pain noted On examination: Vital signs stable. Chest good air entry regular heart sound nontender abdomen Patient's echo cardigan showing evidence of reduced ejection fraction, and wall motion abnormality noted Assessment and recommendation: 62-year-old male with a history of schizophrenia bipolar disease hypertension pulmonary embolism admitted to the hospital with a tachycardia, hypertension, chest pain. 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 Possible stress test tomorrow. Will follow the patient Objective - Vital Signs/Intake and Output Vital Signs (last 24 hours): Temp Pulse Resp BP Pulse Ox 97.5 F L 74 20 122/79 98 09/23/17 07:00 09/23/17 11:56 09/23/17 07:00 09/23/17 07:00 09/23/17 07:00 Intake and Output: 09/23/17 09/23/17 06:59 18:59 Intake Total 0 Output Total 100 Balance -100 - Medications Medications: Current Medications Apixaban (Eliquis) 5 mg PO DAILY [facility] Last Admin: 09/23/17 09:20 Dose: 5 mg Dicyclomine HCl (Bentyl) 10 mg PO BID PRN PRN Reason: Pain, Mild (1-3) Diltiazem HCl (Cardizem Cd) 120 mg PO DAILY [facility] Last Admin: 09/23/17 09:20 Dose: 120 mg Docusate Sodium (Colace) 100 mg PO DAILY PRN PRN Reason: Constipation Lorazepam (Ativan) 2 mg PO TID [facility] Last Admin: 09/23/17 13:30 Dose: 2 mg Losartan Potassium (Cozaar) 50 mg PO DAILY [facility] Last Admin: 09/23/17 09:20 Dose: 50 mg Metoprolol Tartrate (Lopressor) 50 mg PO BID [facility] Last Admin: 09/23/17 09:20 Dose: 50 mg Olanzapine (Zyprexa) 10 mg PO HS [facility] Last Admin: 09/22/17 21:28 Dose: 10 mg Pantoprazole Sodium (Protonix Ec Tab) 40 mg PO DAILY [facility] Last Admin: 09/23/17 09:20 Dose: 40 mg Polyethylene Glycol (Miralax) 17 gm PO BID PRN PRN Reason: Constipation Tamsulosin HCl (Flomax) 0.4 mg PO DAILY [facility] Last Admin: 09/23/17 09:20 Dose: 0.4 mg Zolpidem Tartrate (Ambien) 5 mg PO HS PRN PRN Reason: Insomnia Last Admin: 09/22/17 21:27 Dose: 5 mg - Labs Labs: 09/20/17 16:20 09/20/17 16:20 PT 13.3 SECONDS (9.7-12.2) H 09/20/17 16:20 INR 1.2 09/20/17 16:20 APTT 42 SECONDS (21-34) H 09/20/17 16:20
--- NOTE | 2017-09-23 22:10 | CP.PCM.PN ---
Subjective - Date & Time of Evaluation Date of Evaluation: 09/23/17 Time of Evaluation: 14:10 - Subjective Subjective: Patient seen and evaluated Denies chest pain and dyspnea ECHO: EF 45% [place] tachycardia induced cardiomyopathy For stress test in am Objective - Vital Signs/Intake and Output Vital Signs (last 24 hours): Temp Pulse Resp BP Pulse Ox 98.2 F 87 20 123/80 98 09/23/17 15:36 09/23/17 17:48 09/23/17 15:36 09/23/17 17:48 09/23/17 15:36 Intake and Output: 09/23/17 09/24/17 18:59 06:59 Intake Total 300 Output Total 450 Balance -150 - Medications Medications: Current Medications Apixaban (Eliquis) 5 mg PO DAILY [facility] Last Admin: 09/23/17 09:20 Dose: 5 mg Dicyclomine HCl (Bentyl) 10 mg PO BID PRN PRN Reason: Pain, Mild (1-3) Diltiazem HCl (Cardizem Cd) 120 mg PO DAILY [facility] Last Admin: 09/23/17 09:20 Dose: 120 mg Docusate Sodium (Colace) 100 mg PO DAILY PRN PRN Reason: Constipation Lorazepam (Ativan) 2 mg PO TID [facility] Last Admin: 09/23/17 17:46 Dose: 2 mg Losartan Potassium (Cozaar) 50 mg PO DAILY [facility] Last Admin: 09/23/17 09:20 Dose: 50 mg Metoprolol Tartrate (Lopressor) 50 mg PO BID [facility] Last Admin: 09/23/17 17:46 Dose: 50 mg Olanzapine (Zyprexa) 10 mg PO HS [facility] Last Admin: 09/23/17 21:04 Dose: 10 mg Pantoprazole Sodium (Protonix Ec Tab) 40 mg PO DAILY [facility] Last Admin: 09/23/17 09:20 Dose: 40 mg Polyethylene Glycol (Miralax) 17 gm PO BID PRN PRN Reason: Constipation Tamsulosin HCl (Flomax) 0.4 mg PO DAILY [facility] Last Admin: 09/23/17 09:20 Dose: 0.4 mg Zolpidem Tartrate (Ambien) 5 mg PO HS PRN PRN Reason: Insomnia Last Admin: 09/23/17 21:42 Dose: 5 mg - Labs Labs: 09/20/17 16:20 09/20/17 16:20 PT 13.3 SECONDS (9.7-12.2) H 09/20/17 16:20 INR 1.2 09/20/17 16:20 APTT 42 SECONDS (21-34) H 09/20/17 16:20
[2017-09-24] MEDS: Pantoprazole 40 mg EC Tab PO SCH (10:32)
[2017-09-24] MEDS: diltiaZEM 120 mg/24 Hours CD Cap PO SCH (10:33)
--- NOTE | 2017-09-24 19:00 | CP.PCM.PN ---
Subjective - Date & Time of Evaluation Date of Evaluation: 09/24/17 Time of Evaluation: 18:59 - Subjective Subjective: Patient is now having no chest pain or shortness of breath. Feeling better. Had a stress test, results are pending Labs reviewed in Assessment: 62-year-old male with a history of anxiety, bipolar disease admitted to the hospital with the chest pain, uncontrolled hypertension and tachycardia. Stable. Will continue the current treatment. Objective - Vital Signs/Intake and Output Vital Signs (last 24 hours): Temp Pulse Resp BP Pulse Ox 98.1 F 80 20 132/77 98 09/24/17 15:20 09/24/17 15:20 09/24/17 15:20 09/24/17 15:20 09/24/17 15:20 Intake and Output: 09/24/17 09/24/17 06:59 18:59 Intake Total 480 Output Total 700 Balance -220 - Medications Medications: Current Medications Apixaban (Eliquis) 5 mg PO DAILY [facility] Last Admin: 09/24/17 10:33 Dose: 5 mg Dicyclomine HCl (Bentyl) 10 mg PO BID PRN PRN Reason: Pain, Mild (1-3) Diltiazem HCl (Cardizem Cd) 120 mg PO DAILY [facility] Last Admin: 09/24/17 10:33 Dose: 120 mg Docusate Sodium (Colace) 100 mg PO DAILY PRN PRN Reason: Constipation Last Admin: 09/24/17 10:33 Dose: 100 mg Lorazepam (Ativan) 2 mg PO TID [facility] Last Admin: 09/24/17 13:38 Dose: 2 mg Losartan Potassium (Cozaar) 50 mg PO DAILY [facility] Last Admin: 09/24/17 10:33 Dose: 50 mg Metoprolol Tartrate (Lopressor) 50 mg PO BID [facility] Last Admin: 09/24/17 10:33 Dose: 50 mg Olanzapine (Zyprexa) 10 mg PO HS [facility] Last Admin: 09/23/17 21:04 Dose: 10 mg Pantoprazole Sodium (Protonix Ec Tab) 40 mg PO DAILY [facility] Last Admin: 09/24/17 10:32 Dose: 40 mg Polyethylene Glycol (Miralax) 17 gm PO BID PRN PRN Reason: Constipation Tamsulosin HCl (Flomax) 0.4 mg PO DAILY [facility] Last Admin: 09/24/17 10:32 Dose: 0.4 mg Zolpidem Tartrate (Ambien) 5 mg PO HS PRN PRN Reason: Insomnia Last Admin: 09/23/17 21:42 Dose: 5 mg - Labs Labs: 09/20/17 16:20 09/20/17 16:20 PT 13.3 SECONDS (9.7-12.2) H 09/20/17 16:20 INR 1.2 09/20/17 16:20 APTT 42 SECONDS (21-34) H 09/20/17 16:20
[2017-09-24] MEDS: Fluticasone Nasal 50 mcg/Spray NAS SCH (22:54)
--- NOTE | 2017-09-25 06:23 | CARD ---
APPROVED REPORT Protocol: LEXISCAN Test Type: LEXISCAN Test Indications: CHEST PAIN, TACHYCARDIA Medications: LIST SCAN Medical History: CHEST PAIN, TACHYCARDIA Target HR: 157 bpm Resting ECG: normal Resting Heart Rate: 105 bpm Resting Blood Pressure: 132/70mmHg submaximum (85%): 133 bpm TEST SUMMARY [id number]. INFUSIONDOSE 100:[id number]/70.0. [id number]/70.0. POST EXERCISE Reason for Termination: Protocol Completed Target HR: No Max HR: 105 bpm 71% of Maximum Predicted HR: 157 bpm Exercise duration: 00:30 min:sec, 0 Stage Exercise capacity: 1.0METs Max Blood Pressure: 133/70mmHg Blood Pressure response to exercise: normal resting BP - appropriate response Heart Rate response to exercise: appropriate Chest Pain: No, none Angina index: 0 Arrhythmia: No, none ST Change: No, none Deviation: 0 mm INTERPRETATION Stress EKG Conclusion: NEGATIVE LEXISCAN STRESS TEST NORMAL BP RESPONSE TO LEXISCAN NUCLEAR STUDIES TO BE READ SEPARATELY EXAM: Myocardial Perfusion STRESS/REST Imaging Protocol The imaging protocol used to acquire images was Stress Tc-99m/rest Tc-99m 1 day Rest Spect myocardial perfusion imaging was performed in supine position 45 minutes following the injection of 32.8 mCi of Tc-99 Myoview. Gated Stress Spect was performed 45 minutes after intravenous 12.8 mCi Tc-99 Myoview injection. The images were gated to evaluate regional wall motion and calculate ventricular ejection fraction.Images were reconstructed using backfilter projection method in short horizontal and verticle long axis. Spect slices were generated. RESTING DATA EDV78.55cfHD1.80L/min ESV33.00mlMyocardial Qocp956.00g Av. Heart Rate85.00bpm EF58.00% STRESS DATA EDV72.67emEU0.60L/min ESV20.00mlMyocardial Evzu082.00g EF72.00% Regional WT score at stress:0.00 Regional WM score at stress:0.00 Summed WT score at stress:11.00 Av. Heart Rate89.00bpmSummed WM score at stress:3.00 LV Perf. Quant 17 Seg. SSS5.00 17 Seg. SRS1.00 17 Seg. SDS4.00 Stress Defect Extent (% LAD)0.00Rest Defect Extent (% LAD)0.00Rev. Defect Extent (% LAD)0.00 Stress Defect Extent (% LCX)45.00Rest Defect Extent (% LCX)0.00Rev. Defect Extent (% LCX)37.50 Stress Defect Extent (% RCA)0.00Rest Defect Extent (% RCA)0.00Rev. Defect Extent (% RCA)0.00 Stress Defect Extent (% REJI)10.70Rest Defect Extent (% REJI)0.00Rev. Defect Extent (% REJI)8.70 IMPRESSION Normal Myocardial Perfusion exercise stress study Left Ventricle LV Size/Shape: The left ventricle is normal size. LV Function:Left ventricle systolic function is normal. The Ejection Fraction is >70%. Regional Wall Motion:There is normal left ventricular wall motion. Metabolism/Perfusion Defects: There is no scan evidence of reversible ischemia noted. Conclusion 1. No stress-induced ischemia noted. 2. Left ventricle systolic function is normal. 3. The Ejection Fraction is >70%.
[2017-09-25] MEDS: Fluticasone Nasal 50 mcg/Spray NAS SCH (09:36)
[2017-09-25] MEDS: diltiaZEM 120 mg/24 Hours CD Cap PO SCH (09:36)
[2017-09-25] MEDS: Pantoprazole 40 mg EC Tab PO SCH (09:36)
--- NOTE | 2017-09-25 13:20 | CP.PCM.PN ---
Subjective - Date & Time of Evaluation Date of Evaluation: 09/25/17 Time of Evaluation: 10:45 - Subjective Subjective: [employer] NOTES Patient seen today, awake, alert, ox3, denies any chest pain, sob, palpitations , N/V/D, c/o anxiety No overnight events reported on monitor s/p stress test - No stress induced ischemia EF>70% Objective - Vital Signs/Intake and Output Vital Signs (last 24 hours): Temp Pulse Resp BP Pulse Ox 98.1 F 87 18 126/77 100 09/25/17 07:00 09/25/17 09:34 09/25/17 07:00 09/25/17 09:34 09/25/17 07:00 Intake and Output: 09/25/17 09/25/17 06:59 18:59 Intake Total 480 Output Total 400 Balance 80 - Medications Medications: Current Medications Apixaban (Eliquis) 5 mg PO DAILY [facility] Last Admin: 09/25/17 09:36 Dose: 5 mg Dicyclomine HCl (Bentyl) 10 mg PO BID PRN PRN Reason: Pain, Mild (1-3) Diltiazem HCl (Cardizem Cd) 120 mg PO DAILY [facility] Last Admin: 09/25/17 09:36 Dose: 120 mg Docusate Sodium (Colace) 100 mg PO DAILY PRN PRN Reason: Constipation Last Admin: 09/24/17 10:33 Dose: 100 mg Fluticasone Propionate (Flonase) 1 spr JOSE DAVID DAILY [facility] Last Admin: 09/25/17 09:36 Dose: 1 spr Lorazepam (Ativan) 2 mg PO TID [facility] Last Admin: 09/25/17 09:36 Dose: 2 mg Losartan Potassium (Cozaar) 50 mg PO DAILY [facility] Last Admin: 09/25/17 09:36 Dose: 50 mg Metoprolol Tartrate (Lopressor) 50 mg PO BID [facility] Last Admin: 09/25/17 09:36 Dose: 50 mg Olanzapine (Zyprexa) 10 mg PO HS [facility] Last Admin: 09/24/17 21:59 Dose: 10 mg Pantoprazole Sodium (Protonix Ec Tab) 40 mg PO DAILY [facility] Last Admin: 09/25/17 09:36 Dose: 40 mg Polyethylene Glycol (Miralax) 17 gm PO BID PRN PRN Reason: Constipation Tamsulosin HCl (Flomax) 0.4 mg PO DAILY [facility] Last Admin: 09/25/17 09:36 Dose: 0.4 mg Zolpidem Tartrate (Ambien) 5 mg PO HS PRN PRN Reason: Insomnia Last Admin: 09/24/17 21:59 Dose: 5 mg - Labs Labs: 09/20/17 16:20 09/20/17 16:20 PT 13.3 SECONDS (9.7-12.2) H 09/20/17 16:20 INR 1.2 09/20/17 16:20 APTT 42 SECONDS (21-34) H 09/20/17 16:20 - Constitutional Appears: Well, No Acute Distress - Respiratory Exam Respiratory Exam: Clear to Ausculation Bilateral, NORMAL BREATHING PATTERN - Cardiovascular Exam Cardiovascular Exam: REGULAR RHYTHM, +S1, +S2 - Neurological Exam Neurological Exam: Alert, Awake, Oriented x3 Assessment and Plan - Assessment and Plan (Free Text) Assessment: A/P 62-year-old male with pmhx of HTN, of anxiety, bipolar disease admitted with chest pain, palpitations and tachycardia. troponin x 3 - negative HR - controlled with medications s/p - stress test - negative with normal EF D/w Dr. Gusman , stable for discharge home today and f/u with Dr. Uzma locke in 2 week Discharge plan discussed with patient and , who understands and agrees with plan patient instructed to returns to ED if symptoms returns or any other concerning symptoms RX given
[2017-09-25 15:47] VITALS: BP 138/75; PULSE 81; RESP 20; TEMP 97.3; O2SAT 98
--- NOTE | 2017-09-25 22:01 | CP.PCM.DIS ---
Provider - Provider Date of Admission: 09/22/17 14:03 Attending physician: Robert Gusman MD Time Spent in preparation of Discharge (in minutes): 45 Hospital Course - Lab Results Lab Results: Most Recent Lab Values WBC 7.8 K/uL (4.8-10.8) 09/20/17 16:20 RBC 4.80 Mil/uL (4.40-5.90) 09/20/17 16:20 Hgb 14.7 g/dL (12.0-18.0) D 09/20/17 16:20 Hct 42.2 % (35.0-51.0) 09/20/17 16:20 MCV 88.0 fL (80.0-94.0) 09/20/17 16:20 MCH 30.6 pg (27.0-31.0) 09/20/17 16:20 MCHC 34.8 g/dL (33.0-37.0) 09/20/17 16:20 RDW 13.7 % (11.5-14.5) 09/20/17 16:20 Plt Count 243 K/uL (130-400) 09/20/17 16:20 MPV 7.9 fL (7.2-11.7) 09/20/17 16:20 Neut % (Auto) 75.6 % (50.0-75.0) H 09/20/17 16:20 Lymph % (Auto) 15.2 % (20.0-40.0) L 09/20/17 16:20 Pratt % (Auto) 8.5 % (0.0-10.0) 09/20/17 16:20 Eos % (Auto) 0.3 % (0.0-4.0) 09/20/17 16:20 Baso % (Auto) 0.4 % (0.0-2.0) 09/20/17 16:20 Neut # (Auto) 5.9 K/uL (1.8-7.0) 09/20/17 16:20 Lymph # (Auto) 1.2 K/uL (1.0-4.3) 09/20/17 16:20 Pratt # (Auto) 0.7 K/uL (0.0-0.8) 09/20/17 16:20 Eos # (Auto) 0.0 K/uL (0.0-0.7) 09/20/17 16:20 Baso # (Auto) 0.0 K/uL (0.0-0.2) 09/20/17 16:20 PT 13.3 SECONDS (9.7-12.2) H 09/20/17 16:20 INR 1.2 09/20/17 16:20 APTT 42 SECONDS (21-34) H 09/20/17 16:20 Sodium 138 mmol/L (132-148) 09/20/17 16:20 Potassium 4.1 mmol/L (3.6-5.2) 09/20/17 16:20 Chloride 98 mmol/L (98-107) 09/20/17 16:20 Carbon Dioxide 27 mmol/L (22-30) 09/20/17 16:20 Anion Gap 16 (10-20) 09/20/17 16:20 BUN 18 mg/dL (9-20) 09/20/17 16:20 Creatinine 1.0 mg/dL (0.8-1.5) 09/20/17 16:20 Est GFR ( Amer) > 60 09/20/17 16:20 Est GFR (Non-Af Amer) > 60 09/20/17 16:20 POC Glucose (mg/dL) 173 mg/dL (65-110) H 09/25/17 11:05 Random Glucose 134 mg/dL (75-110) H 09/20/17 16:20 Calcium 9.9 mg/dl (8.6-10.4) 09/20/17 16:20 Total Bilirubin 0.6 mg/dL (0.2-1.3) 09/20/17 16:20 AST 19 U/L (17-59) 09/20/17 16:20 ALT 27 U/L (21-72) 09/20/17 16:20 Alkaline Phosphatase 66 U/L (38-126) 09/20/17 16:20 Total Creatine Kinase 49 U/L (55-170) L 09/21/17 06:47 CK-MB (Mass) 1.24 ng/mL (0.0-3.38) 09/21/17 06:47 Troponin I < 0.0120 ng/mL (0.00-0.120) 09/21/17 06:47 NT-Pro-B Natriuret Pep 61.3 pg/mL (0-900) 09/20/17 16:20 Total Protein 7.3 g/dL (6.3-8.3) 09/20/17 16:20 Albumin 4.5 g/dL (3.5-5.0) 09/20/17 16:20 Globulin 2.9 gm/dL (2.2-3.9) 09/20/17 16:20 Albumin/Globulin Ratio 1.5 (1.0-2.1) 09/20/17 16:20 - Hospital Course Hospital Course: Chief complaint: Patient came to the office with symptoms of very anxious and anxiety, and also palpitation and chest pain,In the office patient had a tachycardia 140/min. Also very uncontrolled hypertension. I sent him to the emergency room immediately History present illness: 61-year-old male with history of bipolar disease, schizophrenia, major depression and anxiety seen by psychiatrist, admitted to the hospital today, With ongoing anxiety, and the chest pain, chest discomfort, uncontrolled blood pressure, and tachycardia Patient was having increasing symptoms of dizziness also associated with the chest pain. In the emergency room patient was seen by ER, underwent extensive workup. CT scan of the chest with contrast is showing no evidence of PE. Because of the continuation of tachycardia, and tachypnea patient needed hospitalization and monitoring. He is also complaining of increasing abdominal pain. Anxiety. Insomnia. Poor intake. Abdominal pain. Past medical history: Schizophrenia, bipolar disease. Anxiety. Possible anorexia Surgical history: None Allergies: Patient has a multiple allergies including Seroquel, Haldol, lithium. Family history noncontributory Personal history patient is a lifelong nonsmoker nonalcoholic Review of system: Patient is currently having minimal headache, nausea noted, abdominal pain noted , denies any chest pain, weakness and tiredness noted. Significant constipation present Increasing muscle wasting and weakness noted Vital signs reviewed, vital signs reviewed No neck vein distention noted, dryness of the mouth noted Chest good air entry bilaterally, no wheezing or rales noted CVS regular heart sound, no murmur noted Abdomen soft, nontender. 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 X-ray chest normal. CT scan of the chest showing evidence of no acute pathology. No PE But mildly nodular changes noted. Patient will need repeat CT scan of the chest in 6 months Assessment and recommendation: 61-year-old male with history of schizophrenia, anxiety. Now admitted with acute tachycardia, and acute hypertension. Uncontrolled hypertensive changes. Anxiety. Chest pain. Patient is currently given clonidine patch, but the patient is not feeling with the clonidine. We will discontinue clonidine. We will resume the metoprolol succinate twice a day. Cardizem. Cardiology evaluation. Echocardiogram may be needed. We will closely monitor telemetry basilio. Cardiac enzymes monitoring and will follow the patient Course in the hospital: Patient was admitted to the telemetry. Patient was placed on beta-leidy, IV fluids. Patient was becoming more anxious. During the emergency room patient underwent CT scan of the chest with contrast to rule out pulmonary embolism, which was reported as negative. Clonidine patch was discontinued. Patient tolerated the antiarrhythmic medications. Cardiology consultation was called. Patient has a ejection fraction of 40-45%, and wall motion abnormality noted. Social stress test was ordered, stress test reported as negative. Clinically stable. He will be discharged home. He will follow-up as an outpatient Assessment and recommendation: Patient is a 62-year-old male with a history of bipolar disease, anxiety, history of diabetes hypertension also tachycardia. History of pulmonary embolism. Currently stable. He will be discharged home today. He will follow-up as an outpatient. Patient will continue his home medications along with Cardizem CD 120 mg daily Eliquis 5 mg daily Cozaar 50 mg daily Metoprolol 50 mg twice a day Zolpidem, lorazepam, Bentyl, Colace, Flomax, fluticasone, MiraLAX, Protonix, Zyprexa. Will follow-up the patient in 1 week Discharge Plan - Discharge Medications Prescriptions: Zolpidem [Ambien] 10 mg PO HS PRN #30 tab PRN Reason: Insomnia diltiaZEM CD [Cardizem CD] 120 mg PO DAILY #30 cap Losartan [Cozaar] 50 mg PO DAILY #30 tab Apixaban [Eliquis] 5 mg PO DAILY #30 tab Tamsulosin [Flomax] 0.4 mg PO DAILY #30 cap Fluticasone Propionate [Flonase] 1 spr JOSE DAVID DAILY #1 bottle Metoprolol Tartrate [Lopressor] 50 mg PO BID #60 tab Polyethylene Glycol 3350 [Miralax] 17 gm PO BID PRN 30 Days packet PRN Reason: Constipation Pantoprazole [Protonix EC Tab] 40 mg PO DAILY #30 ect OLANZapine [Zyprexa] 10 mg PO HS #30 tab - Follow Up Plan Condition: STABLE Disposition: HOME/ ROUTINE Instructions: Heart Healthy Diet, Chest Pain (DC), Sinus Tachycardia (DC), Tachycardia (DC) Additional Instructions: Please follow up with Dr. Gusman office next week - call and make appointment Please continue medication as per Med. rec. Referrals: Robert Gusman MD [Staff Provider] -
== END 2017-09-25 14:15 | disposition home or self-care (01) | DRG 885 ==
LOC: C.ER 14:53 → C.9E 19:03 → C.6T 20:33 → OBSVTOIN 09-22 14:03
PROVIDERS: ADMIT Internal Medicine; ATTEND Internal Medicine
DX: F25.9 Schizoaffective disorder, unspecified (principal); I42.9 Cardiomyopathy, unspecified; G47.00 Insomnia, unspecified; I10 Essential (primary) hypertension; Z86.711 Personal history of pulmonary embolism; E11.9 Type 2 diabetes mellitus without complications; R00.0 Tachycardia, unspecified; F41.9 Anxiety disorder, unspecified

== ENCOUNTER 2018-08-23 13:31 | Emergency (ER) | payer MEDICARE ==
[2018-08-23 13:32] VITALS: BMI 21.2
[2018-08-23 13:41] VITALS: BP 132/83; PULSE 87; RESP 18; TEMP 98.7; O2SAT 100
== END 2018-08-23 14:20 | disposition left against medical advice (07) ==
LOC: C.ER 13:31
DX: Z02.89 Encounter for other administrative examinations (principal); R39.198 Other difficulties with micturition